=== PATIENT | male | born 1960 | race Hispanic/Latino ===

== ENCOUNTER → 2020-06-01 | Outpatient (CLI) | payer OTHER ==
[~2020-06-01] MED LIST: LIDOCAINE HCL 2% JELLY 5 ML ONE
== END | disposition home or self-care (01) ==
LOC: WHH 09:00
PROVIDERS: ATTEND Podiatrist Foot & Ankle Surgery
DX: E11.621 Type 2 diabetes mellitus with foot ulcer (principal); I70.245 Atherosclerosis of native arteries of left leg with ulceration of other part of foot; L97.522 Non-pressure chronic ulcer of other part of left foot with fat layer exposed; E11.22 Type 2 diabetes mellitus with diabetic chronic kidney disease; I12.9 Hypertensive chronic kidney disease with stage 1 through stage 4 chronic kidney disease, or unspecified chronic kidney disease; N18.31 Chronic kidney disease, stage 3a; E11.40 Type 2 diabetes mellitus with diabetic neuropathy, unspecified; M19.072 Primary osteoarthritis, left ankle and foot; I10 Essential (primary) hypertension; E78.00 Pure hypercholesterolemia, unspecified
CPT/HCPCS: 11042; A6207

== ENCOUNTER → 2020-06-03 | Outpatient (CLI) | payer OTHER | END | disposition home or self-care (01) | LOC: WHH 08:30 | PROVIDERS: ATTEND Podiatrist Foot & Ankle Surgery | DX: E11.621 Type 2 diabetes mellitus with foot ulcer (principal); I70.245 Atherosclerosis of native arteries of left leg with ulceration of other part of foot; L97.522 Non-pressure chronic ulcer of other part of left foot with fat layer exposed; E11.22 Type 2 diabetes mellitus with diabetic chronic kidney disease; I12.9 Hypertensive chronic kidney disease with stage 1 through stage 4 chronic kidney disease, or unspecified chronic kidney disease; N18.31 Chronic kidney disease, stage 3a; E11.40 Type 2 diabetes mellitus with diabetic neuropathy, unspecified; M19.072 Primary osteoarthritis, left ankle and foot; I10 Essential (primary) hypertension; E78.00 Pure hypercholesterolemia, unspecified | CPT/HCPCS: A6207; G0463 ==

== ENCOUNTER → 2020-06-06 | Outpatient (CLI) | payer OTHER | END | disposition home or self-care (01) | LOC: WHH 09:00 | PROVIDERS: ATTEND Podiatrist Foot & Ankle Surgery | DX: E11.621 Type 2 diabetes mellitus with foot ulcer (principal); I70.245 Atherosclerosis of native arteries of left leg with ulceration of other part of foot; L97.522 Non-pressure chronic ulcer of other part of left foot with fat layer exposed; E11.22 Type 2 diabetes mellitus with diabetic chronic kidney disease; I12.9 Hypertensive chronic kidney disease with stage 1 through stage 4 chronic kidney disease, or unspecified chronic kidney disease; N18.31 Chronic kidney disease, stage 3a; E11.40 Type 2 diabetes mellitus with diabetic neuropathy, unspecified; M19.072 Primary osteoarthritis, left ankle and foot; I10 Essential (primary) hypertension; E78.00 Pure hypercholesterolemia, unspecified | CPT/HCPCS: A6207; G0463 ==

== ENCOUNTER → 2020-06-08 | Outpatient (CLI) | payer OTHER | END | disposition home or self-care (01) | LOC: WHH 08:30 | PROVIDERS: ATTEND Podiatrist Foot & Ankle Surgery | DX: E11.621 Type 2 diabetes mellitus with foot ulcer (principal); I70.245 Atherosclerosis of native arteries of left leg with ulceration of other part of foot; L97.522 Non-pressure chronic ulcer of other part of left foot with fat layer exposed; E11.22 Type 2 diabetes mellitus with diabetic chronic kidney disease; I12.9 Hypertensive chronic kidney disease with stage 1 through stage 4 chronic kidney disease, or unspecified chronic kidney disease; N18.31 Chronic kidney disease, stage 3a; E11.40 Type 2 diabetes mellitus with diabetic neuropathy, unspecified; M19.072 Primary osteoarthritis, left ankle and foot; I10 Essential (primary) hypertension; E78.00 Pure hypercholesterolemia, unspecified | CPT/HCPCS: 11042; A4450; A6207 ==

== ENCOUNTER → 2020-06-10 | Outpatient (CLI) | payer OTHER | END | disposition home or self-care (01) | LOC: WHH 08:00 | PROVIDERS: ATTEND Podiatrist Foot & Ankle Surgery | DX: E11.621 Type 2 diabetes mellitus with foot ulcer (principal); I70.245 Atherosclerosis of native arteries of left leg with ulceration of other part of foot; L97.522 Non-pressure chronic ulcer of other part of left foot with fat layer exposed; E11.22 Type 2 diabetes mellitus with diabetic chronic kidney disease; I12.9 Hypertensive chronic kidney disease with stage 1 through stage 4 chronic kidney disease, or unspecified chronic kidney disease; N18.31 Chronic kidney disease, stage 3a; M19.072 Primary osteoarthritis, left ankle and foot; E78.00 Pure hypercholesterolemia, unspecified | CPT/HCPCS: A6207; G0463 ==

== ENCOUNTER → 2020-06-15 | Outpatient (CLI) | payer OTHER | END | disposition home or self-care (01) | LOC: WHH 08:50 | PROVIDERS: ATTEND Podiatrist Foot & Ankle Surgery | DX: E11.621 Type 2 diabetes mellitus with foot ulcer (principal); I70.245 Atherosclerosis of native arteries of left leg with ulceration of other part of foot; L97.522 Non-pressure chronic ulcer of other part of left foot with fat layer exposed; E11.40 Type 2 diabetes mellitus with diabetic neuropathy, unspecified; E11.22 Type 2 diabetes mellitus with diabetic chronic kidney disease; I12.9 Hypertensive chronic kidney disease with stage 1 through stage 4 chronic kidney disease, or unspecified chronic kidney disease; N18.31 Chronic kidney disease, stage 3a; M19.072 Primary osteoarthritis, left ankle and foot; E78.00 Pure hypercholesterolemia, unspecified | CPT/HCPCS: A6207; G0463 ==

== ENCOUNTER → 2020-06-17 | Outpatient (CLI) | payer OTHER | END | disposition home or self-care (01) | LOC: WHH 09:00 | PROVIDERS: ATTEND Podiatrist Foot & Ankle Surgery | DX: E11.621 Type 2 diabetes mellitus with foot ulcer (principal); I70.245 Atherosclerosis of native arteries of left leg with ulceration of other part of foot; L97.522 Non-pressure chronic ulcer of other part of left foot with fat layer exposed; E11.40 Type 2 diabetes mellitus with diabetic neuropathy, unspecified; E11.22 Type 2 diabetes mellitus with diabetic chronic kidney disease; I12.9 Hypertensive chronic kidney disease with stage 1 through stage 4 chronic kidney disease, or unspecified chronic kidney disease; N18.31 Chronic kidney disease, stage 3a; M19.072 Primary osteoarthritis, left ankle and foot; E78.00 Pure hypercholesterolemia, unspecified | CPT/HCPCS: A6207; G0463 ==

== ENCOUNTER → 2020-06-20 | Outpatient (CLI) | payer OTHER | END | disposition home or self-care (01) | LOC: WHH 08:30 | PROVIDERS: ATTEND Podiatrist Foot & Ankle Surgery | DX: E11.621 Type 2 diabetes mellitus with foot ulcer (principal); I70.245 Atherosclerosis of native arteries of left leg with ulceration of other part of foot; L97.522 Non-pressure chronic ulcer of other part of left foot with fat layer exposed; E11.40 Type 2 diabetes mellitus with diabetic neuropathy, unspecified; E11.22 Type 2 diabetes mellitus with diabetic chronic kidney disease; I12.9 Hypertensive chronic kidney disease with stage 1 through stage 4 chronic kidney disease, or unspecified chronic kidney disease; N18.31 Chronic kidney disease, stage 3a; M19.072 Primary osteoarthritis, left ankle and foot; E78.00 Pure hypercholesterolemia, unspecified | CPT/HCPCS: A6207; G0463 ==

== ENCOUNTER → 2020-06-22 | Outpatient (CLI) | payer OTHER | END | disposition home or self-care (01) | LOC: WHH 08:30 | PROVIDERS: ATTEND Podiatrist Foot & Ankle Surgery | DX: E11.621 Type 2 diabetes mellitus with foot ulcer (principal); I70.245 Atherosclerosis of native arteries of left leg with ulceration of other part of foot; L97.522 Non-pressure chronic ulcer of other part of left foot with fat layer exposed; E11.40 Type 2 diabetes mellitus with diabetic neuropathy, unspecified; E11.22 Type 2 diabetes mellitus with diabetic chronic kidney disease; I12.9 Hypertensive chronic kidney disease with stage 1 through stage 4 chronic kidney disease, or unspecified chronic kidney disease; N18.31 Chronic kidney disease, stage 3a; M19.072 Primary osteoarthritis, left ankle and foot; E78.00 Pure hypercholesterolemia, unspecified | CPT/HCPCS: 11042; A6207 ==

== ENCOUNTER → 2020-06-24 | Outpatient (CLI) | payer OTHER | END | disposition home or self-care (01) | LOC: WHH 08:55 | PROVIDERS: ATTEND Podiatrist Foot & Ankle Surgery | DX: E11.621 Type 2 diabetes mellitus with foot ulcer (principal); I70.245 Atherosclerosis of native arteries of left leg with ulceration of other part of foot; L97.522 Non-pressure chronic ulcer of other part of left foot with fat layer exposed; E11.40 Type 2 diabetes mellitus with diabetic neuropathy, unspecified; E11.22 Type 2 diabetes mellitus with diabetic chronic kidney disease; I12.9 Hypertensive chronic kidney disease with stage 1 through stage 4 chronic kidney disease, or unspecified chronic kidney disease; N18.31 Chronic kidney disease, stage 3a; M19.072 Primary osteoarthritis, left ankle and foot; E78.00 Pure hypercholesterolemia, unspecified | CPT/HCPCS: A6207; G0463 ==

== ENCOUNTER → 2020-06-27 | Outpatient (CLI) | payer OTHER | END | disposition home or self-care (01) | LOC: WHH 08:50 | PROVIDERS: ATTEND Podiatrist Foot & Ankle Surgery | DX: E11.621 Type 2 diabetes mellitus with foot ulcer (principal); I70.245 Atherosclerosis of native arteries of left leg with ulceration of other part of foot; L97.522 Non-pressure chronic ulcer of other part of left foot with fat layer exposed; E11.40 Type 2 diabetes mellitus with diabetic neuropathy, unspecified; E11.22 Type 2 diabetes mellitus with diabetic chronic kidney disease; I12.9 Hypertensive chronic kidney disease with stage 1 through stage 4 chronic kidney disease, or unspecified chronic kidney disease; N18.31 Chronic kidney disease, stage 3a; M19.072 Primary osteoarthritis, left ankle and foot; E78.00 Pure hypercholesterolemia, unspecified | CPT/HCPCS: A6207; G0463 ==

== ENCOUNTER → 2020-07-01 | Outpatient (CLI) | payer OTHER | END | disposition home or self-care (01) | LOC: WHH 09:00 | PROVIDERS: ATTEND Podiatrist Foot & Ankle Surgery | DX: E11.621 Type 2 diabetes mellitus with foot ulcer (principal); I70.245 Atherosclerosis of native arteries of left leg with ulceration of other part of foot; L97.522 Non-pressure chronic ulcer of other part of left foot with fat layer exposed; L84 Corns and callosities; E11.40 Type 2 diabetes mellitus with diabetic neuropathy, unspecified; E11.22 Type 2 diabetes mellitus with diabetic chronic kidney disease; I12.9 Hypertensive chronic kidney disease with stage 1 through stage 4 chronic kidney disease, or unspecified chronic kidney disease; N18.31 Chronic kidney disease, stage 3a; M19.072 Primary osteoarthritis, left ankle and foot; E78.00 Pure hypercholesterolemia, unspecified | CPT/HCPCS: A6207; G0463 ==

== ENCOUNTER → 2020-07-04 | Outpatient (CLI) | payer OTHER | END | disposition home or self-care (01) | LOC: WHH 09:00 | PROVIDERS: ATTEND Podiatrist Foot & Ankle Surgery | DX: E11.621 Type 2 diabetes mellitus with foot ulcer (principal); L97.522 Non-pressure chronic ulcer of other part of left foot with fat layer exposed; L84 Corns and callosities; E11.40 Type 2 diabetes mellitus with diabetic neuropathy, unspecified; E11.22 Type 2 diabetes mellitus with diabetic chronic kidney disease; I12.9 Hypertensive chronic kidney disease with stage 1 through stage 4 chronic kidney disease, or unspecified chronic kidney disease; N18.31 Chronic kidney disease, stage 3a; M19.072 Primary osteoarthritis, left ankle and foot; E78.00 Pure hypercholesterolemia, unspecified | CPT/HCPCS: A6207; G0463 ==

== ENCOUNTER → 2020-07-06 | Outpatient (CLI) | payer OTHER | END | disposition home or self-care (01) | LOC: WHH 09:30 | PROVIDERS: ATTEND Podiatrist Foot & Ankle Surgery | DX: E11.621 Type 2 diabetes mellitus with foot ulcer (principal); L97.522 Non-pressure chronic ulcer of other part of left foot with fat layer exposed; L84 Corns and callosities; E11.40 Type 2 diabetes mellitus with diabetic neuropathy, unspecified; E11.22 Type 2 diabetes mellitus with diabetic chronic kidney disease; I12.9 Hypertensive chronic kidney disease with stage 1 through stage 4 chronic kidney disease, or unspecified chronic kidney disease; N18.31 Chronic kidney disease, stage 3a; M19.072 Primary osteoarthritis, left ankle and foot; E78.00 Pure hypercholesterolemia, unspecified | CPT/HCPCS: 15275; A4450; A6197; A6207; Q4133 ==

== ENCOUNTER → 2020-07-13 | Outpatient (CLI) | payer OTHER | END | disposition home or self-care (01) | LOC: WHH 09:00 | PROVIDERS: ATTEND Podiatrist Foot & Ankle Surgery | DX: T86.828 Other complications of skin graft (allograft) (autograft) (principal); E11.621 Type 2 diabetes mellitus with foot ulcer; L97.522 Non-pressure chronic ulcer of other part of left foot with fat layer exposed; I70.245 Atherosclerosis of native arteries of left leg with ulceration of other part of foot; L84 Corns and callosities; E11.40 Type 2 diabetes mellitus with diabetic neuropathy, unspecified; E11.22 Type 2 diabetes mellitus with diabetic chronic kidney disease; I12.9 Hypertensive chronic kidney disease with stage 1 through stage 4 chronic kidney disease, or unspecified chronic kidney disease; N18.31 Chronic kidney disease, stage 3a; M19.072 Primary osteoarthritis, left ankle and foot; E78.00 Pure hypercholesterolemia, unspecified; Y83.2 Surgical operation with anastomosis, bypass or graft as the cause of abnormal reaction of the patient, or of later complication, without mention of misadventure at the time of the procedure; Y92.238 Other place in hospital as the place of occurrence of the external cause | CPT/HCPCS: 15275; A6197; A6207; Q4133 ==

== ENCOUNTER → 2020-07-20 | Outpatient (CLI) | payer OTHER | END | disposition home or self-care (01) | LOC: WHH 09:30 | PROVIDERS: ATTEND Podiatrist Foot & Ankle Surgery | DX: T86.828 Other complications of skin graft (allograft) (autograft) (principal); E11.621 Type 2 diabetes mellitus with foot ulcer; L97.522 Non-pressure chronic ulcer of other part of left foot with fat layer exposed; I70.245 Atherosclerosis of native arteries of left leg with ulceration of other part of foot; L84 Corns and callosities; E11.40 Type 2 diabetes mellitus with diabetic neuropathy, unspecified; E11.22 Type 2 diabetes mellitus with diabetic chronic kidney disease; I12.9 Hypertensive chronic kidney disease with stage 1 through stage 4 chronic kidney disease, or unspecified chronic kidney disease; N18.31 Chronic kidney disease, stage 3a; M19.072 Primary osteoarthritis, left ankle and foot; E78.00 Pure hypercholesterolemia, unspecified; Y83.2 Surgical operation with anastomosis, bypass or graft as the cause of abnormal reaction of the patient, or of later complication, without mention of misadventure at the time of the procedure | CPT/HCPCS: 15275; A4450; A6197; A6207; Q4133 ==

== ENCOUNTER → 2020-07-27 | Outpatient (CLI) | payer OTHER | END | disposition home or self-care (01) | LOC: WHH 09:00 | PROVIDERS: ATTEND Podiatrist Foot & Ankle Surgery | DX: T86.828 Other complications of skin graft (allograft) (autograft) (principal); E11.621 Type 2 diabetes mellitus with foot ulcer; I70.245 Atherosclerosis of native arteries of left leg with ulceration of other part of foot; L97.522 Non-pressure chronic ulcer of other part of left foot with fat layer exposed; L84 Corns and callosities; E11.40 Type 2 diabetes mellitus with diabetic neuropathy, unspecified; E11.22 Type 2 diabetes mellitus with diabetic chronic kidney disease; I12.9 Hypertensive chronic kidney disease with stage 1 through stage 4 chronic kidney disease, or unspecified chronic kidney disease; N18.31 Chronic kidney disease, stage 3a; M19.072 Primary osteoarthritis, left ankle and foot; E78.00 Pure hypercholesterolemia, unspecified; Y83.2 Surgical operation with anastomosis, bypass or graft as the cause of abnormal reaction of the patient, or of later complication, without mention of misadventure at the time of the procedure | CPT/HCPCS: 15275; A4450; A6197; A6207; Q4133 ==

== ENCOUNTER → 2020-08-03 | Outpatient (CLI) | payer OTHER | END | disposition home or self-care (01) | LOC: WHH 08:55 | PROVIDERS: ATTEND Podiatrist Foot & Ankle Surgery | DX: T86.828 Other complications of skin graft (allograft) (autograft) (principal); E11.621 Type 2 diabetes mellitus with foot ulcer; I70.245 Atherosclerosis of native arteries of left leg with ulceration of other part of foot; L97.522 Non-pressure chronic ulcer of other part of left foot with fat layer exposed; L60.2 Onychogryphosis; L84 Corns and callosities; E11.40 Type 2 diabetes mellitus with diabetic neuropathy, unspecified; E11.22 Type 2 diabetes mellitus with diabetic chronic kidney disease; I12.9 Hypertensive chronic kidney disease with stage 1 through stage 4 chronic kidney disease, or unspecified chronic kidney disease; N18.31 Chronic kidney disease, stage 3a; E78.00 Pure hypercholesterolemia, unspecified; M19.072 Primary osteoarthritis, left ankle and foot; Y83.2 Surgical operation with anastomosis, bypass or graft as the cause of abnormal reaction of the patient, or of later complication, without mention of misadventure at the time of the procedure | CPT/HCPCS: 11055; 15275; A6197; A6207 ×2; Q4133 ==

== ENCOUNTER → 2020-08-10 | Outpatient (CLI) | payer OTHER | END | disposition home or self-care (01) | LOC: WHH 09:00 | PROVIDERS: ATTEND Podiatrist Foot & Ankle Surgery | DX: T86.828 Other complications of skin graft (allograft) (autograft) (principal); E11.621 Type 2 diabetes mellitus with foot ulcer; I70.245 Atherosclerosis of native arteries of left leg with ulceration of other part of foot; L97.522 Non-pressure chronic ulcer of other part of left foot with fat layer exposed; L60.2 Onychogryphosis; L84 Corns and callosities; E11.40 Type 2 diabetes mellitus with diabetic neuropathy, unspecified; E11.22 Type 2 diabetes mellitus with diabetic chronic kidney disease; I12.9 Hypertensive chronic kidney disease with stage 1 through stage 4 chronic kidney disease, or unspecified chronic kidney disease; N18.31 Chronic kidney disease, stage 3a; E78.00 Pure hypercholesterolemia, unspecified; M19.072 Primary osteoarthritis, left ankle and foot; Y83.2 Surgical operation with anastomosis, bypass or graft as the cause of abnormal reaction of the patient, or of later complication, without mention of misadventure at the time of the procedure | CPT/HCPCS: 15275; A6197; A6207; Q4133 ==

== ENCOUNTER → 2020-08-17 | Outpatient (CLI) | payer OTHER | END | disposition home or self-care (01) | LOC: WHH 09:30 | PROVIDERS: ATTEND Podiatrist Foot & Ankle Surgery | DX: T86.828 Other complications of skin graft (allograft) (autograft) (principal); E11.621 Type 2 diabetes mellitus with foot ulcer; I70.245 Atherosclerosis of native arteries of left leg with ulceration of other part of foot; L97.522 Non-pressure chronic ulcer of other part of left foot with fat layer exposed; L60.2 Onychogryphosis; L84 Corns and callosities; E11.40 Type 2 diabetes mellitus with diabetic neuropathy, unspecified; E11.22 Type 2 diabetes mellitus with diabetic chronic kidney disease; I12.9 Hypertensive chronic kidney disease with stage 1 through stage 4 chronic kidney disease, or unspecified chronic kidney disease; N18.31 Chronic kidney disease, stage 3a; E78.00 Pure hypercholesterolemia, unspecified; M19.072 Primary osteoarthritis, left ankle and foot; Y83.2 Surgical operation with anastomosis, bypass or graft as the cause of abnormal reaction of the patient, or of later complication, without mention of misadventure at the time of the procedure | CPT/HCPCS: 15275; A6209; Q4133 ==

== ENCOUNTER → 2020-08-24 | Outpatient (CLI) | payer OTHER | END | disposition home or self-care (01) | LOC: WHH 09:08 | PROVIDERS: ATTEND Podiatrist Foot & Ankle Surgery | DX: E11.621 Type 2 diabetes mellitus with foot ulcer (principal); I70.245 Atherosclerosis of native arteries of left leg with ulceration of other part of foot; L97.522 Non-pressure chronic ulcer of other part of left foot with fat layer exposed; L89.899 Pressure ulcer of other site, unspecified stage; L97.511 Non-pressure chronic ulcer of other part of right foot limited to breakdown of skin; L60.2 Onychogryphosis; L84 Corns and callosities; E11.40 Type 2 diabetes mellitus with diabetic neuropathy, unspecified; E11.22 Type 2 diabetes mellitus with diabetic chronic kidney disease; I12.9 Hypertensive chronic kidney disease with stage 1 through stage 4 chronic kidney disease, or unspecified chronic kidney disease; N18.31 Chronic kidney disease, stage 3a; E78.00 Pure hypercholesterolemia, unspecified; M19.072 Primary osteoarthritis, left ankle and foot | CPT/HCPCS: 15275; A4450; A6209; Q4133 ==

== ENCOUNTER → 2020-09-07 | Outpatient (CLI) | payer OTHER ==
[~2020-09-07] MED LIST changes: -LIDOCAINE HCL 2% JELLY 5 ML ONE; +LIDOCAINE HCL 4% LTA SOL 4 ML VIAL ONE
== END | disposition home or self-care (01) ==
LOC: WHH 09:25
PROVIDERS: ATTEND Podiatrist Foot & Ankle Surgery
DX: E11.621 Type 2 diabetes mellitus with foot ulcer (principal); I70.245 Atherosclerosis of native arteries of left leg with ulceration of other part of foot; L97.522 Non-pressure chronic ulcer of other part of left foot with fat layer exposed; L60.2 Onychogryphosis; L84 Corns and callosities; E11.40 Type 2 diabetes mellitus with diabetic neuropathy, unspecified; E11.22 Type 2 diabetes mellitus with diabetic chronic kidney disease; I12.9 Hypertensive chronic kidney disease with stage 1 through stage 4 chronic kidney disease, or unspecified chronic kidney disease; N18.31 Chronic kidney disease, stage 3a; E78.00 Pure hypercholesterolemia, unspecified; M19.072 Primary osteoarthritis, left ankle and foot
CPT/HCPCS: 11042; 15275; A6209; Q4133

== ENCOUNTER → 2020-09-14 | Outpatient (CLI) | payer OTHER | END | disposition home or self-care (01) | LOC: WHH 09:45 | PROVIDERS: ATTEND Podiatrist Foot & Ankle Surgery | DX: T86.828 Other complications of skin graft (allograft) (autograft) (principal); E11.621 Type 2 diabetes mellitus with foot ulcer; I70.245 Atherosclerosis of native arteries of left leg with ulceration of other part of foot; L97.522 Non-pressure chronic ulcer of other part of left foot with fat layer exposed; L84 Corns and callosities; E11.40 Type 2 diabetes mellitus with diabetic neuropathy, unspecified; E11.22 Type 2 diabetes mellitus with diabetic chronic kidney disease; I12.9 Hypertensive chronic kidney disease with stage 1 through stage 4 chronic kidney disease, or unspecified chronic kidney disease; N18.31 Chronic kidney disease, stage 3a; E78.00 Pure hypercholesterolemia, unspecified; M19.072 Primary osteoarthritis, left ankle and foot; Y83.2 Surgical operation with anastomosis, bypass or graft as the cause of abnormal reaction of the patient, or of later complication, without mention of misadventure at the time of the procedure | CPT/HCPCS: 11042; A6022 ==

== ENCOUNTER → 2020-09-21 | Outpatient (CLI) | payer OTHER | END | disposition home or self-care (01) | LOC: WHH 09:12 | PROVIDERS: ATTEND Podiatrist Foot & Ankle Surgery | DX: E11.621 Type 2 diabetes mellitus with foot ulcer (principal); I70.245 Atherosclerosis of native arteries of left leg with ulceration of other part of foot; L97.522 Non-pressure chronic ulcer of other part of left foot with fat layer exposed; L84 Corns and callosities; B35.1 Tinea unguium; E11.40 Type 2 diabetes mellitus with diabetic neuropathy, unspecified; E11.22 Type 2 diabetes mellitus with diabetic chronic kidney disease; I12.9 Hypertensive chronic kidney disease with stage 1 through stage 4 chronic kidney disease, or unspecified chronic kidney disease; N18.31 Chronic kidney disease, stage 3a; E78.00 Pure hypercholesterolemia, unspecified; M19.072 Primary osteoarthritis, left ankle and foot; Y83.2 Surgical operation with anastomosis, bypass or graft as the cause of abnormal reaction of the patient, or of later complication, without mention of misadventure at the time of the procedure | CPT/HCPCS: 11056; A6022 ==

== ENCOUNTER → 2020-09-28 | Outpatient (CLI) | payer OTHER | END | disposition home or self-care (01) | LOC: WHH 09:30 | PROVIDERS: ATTEND Podiatrist Foot & Ankle Surgery | DX: E11.621 Type 2 diabetes mellitus with foot ulcer (principal); I70.245 Atherosclerosis of native arteries of left leg with ulceration of other part of foot; L97.522 Non-pressure chronic ulcer of other part of left foot with fat layer exposed; I70.235 Atherosclerosis of native arteries of right leg with ulceration of other part of foot; L97.512 Non-pressure chronic ulcer of other part of right foot with fat layer exposed; L89.892 Pressure ulcer of other site, stage 2; L84 Corns and callosities; B35.1 Tinea unguium; E11.40 Type 2 diabetes mellitus with diabetic neuropathy, unspecified; E11.22 Type 2 diabetes mellitus with diabetic chronic kidney disease; I12.9 Hypertensive chronic kidney disease with stage 1 through stage 4 chronic kidney disease, or unspecified chronic kidney disease; N18.31 Chronic kidney disease, stage 3a; E78.00 Pure hypercholesterolemia, unspecified; M19.072 Primary osteoarthritis, left ankle and foot; Y83.2 Surgical operation with anastomosis, bypass or graft as the cause of abnormal reaction of the patient, or of later complication, without mention of misadventure at the time of the procedure | CPT/HCPCS: 11042; A4649 ==

== ENCOUNTER → 2020-10-05 | Outpatient (CLI) | payer OTHER | END | disposition home or self-care (01) | LOC: WHH 09:57 | PROVIDERS: ATTEND Podiatrist Foot & Ankle Surgery | DX: T86.828 Other complications of skin graft (allograft) (autograft) (principal); E11.621 Type 2 diabetes mellitus with foot ulcer; I70.245 Atherosclerosis of native arteries of left leg with ulceration of other part of foot; L97.522 Non-pressure chronic ulcer of other part of left foot with fat layer exposed; I70.235 Atherosclerosis of native arteries of right leg with ulceration of other part of foot; L97.512 Non-pressure chronic ulcer of other part of right foot with fat layer exposed; L89.892 Pressure ulcer of other site, stage 2; L84 Corns and callosities; B35.1 Tinea unguium; E11.40 Type 2 diabetes mellitus with diabetic neuropathy, unspecified; E11.22 Type 2 diabetes mellitus with diabetic chronic kidney disease; I12.9 Hypertensive chronic kidney disease with stage 1 through stage 4 chronic kidney disease, or unspecified chronic kidney disease; N18.31 Chronic kidney disease, stage 3a; E78.00 Pure hypercholesterolemia, unspecified; M19.072 Primary osteoarthritis, left ankle and foot; Y83.2 Surgical operation with anastomosis, bypass or graft as the cause of abnormal reaction of the patient, or of later complication, without mention of misadventure at the time of the procedure | CPT/HCPCS: 11042; A4649 ==

== ENCOUNTER → 2020-10-12 | Outpatient (CLI) | payer OTHER | END | disposition home or self-care (01) | LOC: WHH 09:31 | PROVIDERS: ATTEND Podiatrist Foot & Ankle Surgery | DX: E11.621 Type 2 diabetes mellitus with foot ulcer (principal); I70.245 Atherosclerosis of native arteries of left leg with ulceration of other part of foot; L97.522 Non-pressure chronic ulcer of other part of left foot with fat layer exposed; I70.235 Atherosclerosis of native arteries of right leg with ulceration of other part of foot; L97.512 Non-pressure chronic ulcer of other part of right foot with fat layer exposed; L89.892 Pressure ulcer of other site, stage 2; L84 Corns and callosities; B35.1 Tinea unguium; E11.40 Type 2 diabetes mellitus with diabetic neuropathy, unspecified; E11.22 Type 2 diabetes mellitus with diabetic chronic kidney disease; I12.9 Hypertensive chronic kidney disease with stage 1 through stage 4 chronic kidney disease, or unspecified chronic kidney disease; N18.31 Chronic kidney disease, stage 3a; E78.00 Pure hypercholesterolemia, unspecified; M19.072 Primary osteoarthritis, left ankle and foot; Y83.2 Surgical operation with anastomosis, bypass or graft as the cause of abnormal reaction of the patient, or of later complication, without mention of misadventure at the time of the procedure | CPT/HCPCS: 11042; A4649 ==

== ENCOUNTER → 2020-10-19 | Outpatient (CLI) | payer OTHER | END | disposition home or self-care (01) | LOC: WHH 09:58 | PROVIDERS: ATTEND Podiatrist Foot & Ankle Surgery | DX: E11.621 Type 2 diabetes mellitus with foot ulcer (principal); I70.245 Atherosclerosis of native arteries of left leg with ulceration of other part of foot; L97.522 Non-pressure chronic ulcer of other part of left foot with fat layer exposed; I70.235 Atherosclerosis of native arteries of right leg with ulceration of other part of foot; L97.512 Non-pressure chronic ulcer of other part of right foot with fat layer exposed; L89.892 Pressure ulcer of other site, stage 2; L84 Corns and callosities; B35.1 Tinea unguium; E11.40 Type 2 diabetes mellitus with diabetic neuropathy, unspecified; E11.22 Type 2 diabetes mellitus with diabetic chronic kidney disease; I12.9 Hypertensive chronic kidney disease with stage 1 through stage 4 chronic kidney disease, or unspecified chronic kidney disease; N18.31 Chronic kidney disease, stage 3a; E78.00 Pure hypercholesterolemia, unspecified; M19.072 Primary osteoarthritis, left ankle and foot; Y83.2 Surgical operation with anastomosis, bypass or graft as the cause of abnormal reaction of the patient, or of later complication, without mention of misadventure at the time of the procedure | CPT/HCPCS: 11042; A4649 ==

== ENCOUNTER → 2020-10-26 | Outpatient (CLI) | payer OTHER | END | disposition home or self-care (01) | LOC: WHH 09:45 | PROVIDERS: ATTEND Podiatrist Foot & Ankle Surgery | DX: E11.621 Type 2 diabetes mellitus with foot ulcer (principal); I70.245 Atherosclerosis of native arteries of left leg with ulceration of other part of foot; L97.522 Non-pressure chronic ulcer of other part of left foot with fat layer exposed; I70.235 Atherosclerosis of native arteries of right leg with ulceration of other part of foot; L97.512 Non-pressure chronic ulcer of other part of right foot with fat layer exposed; L89.892 Pressure ulcer of other site, stage 2; L84 Corns and callosities; B35.1 Tinea unguium; E11.40 Type 2 diabetes mellitus with diabetic neuropathy, unspecified; E11.22 Type 2 diabetes mellitus with diabetic chronic kidney disease; I12.9 Hypertensive chronic kidney disease with stage 1 through stage 4 chronic kidney disease, or unspecified chronic kidney disease; N18.31 Chronic kidney disease, stage 3a; E78.00 Pure hypercholesterolemia, unspecified; M19.072 Primary osteoarthritis, left ankle and foot | CPT/HCPCS: 11042; A4450; A6207 ==

== ENCOUNTER → 2020-11-02 | Outpatient (CLI) | payer OTHER | END | disposition home or self-care (01) | LOC: WHH 10:08 | PROVIDERS: ATTEND Podiatrist Foot & Ankle Surgery | DX: E11.621 Type 2 diabetes mellitus with foot ulcer (principal); I70.245 Atherosclerosis of native arteries of left leg with ulceration of other part of foot; L97.522 Non-pressure chronic ulcer of other part of left foot with fat layer exposed; I70.235 Atherosclerosis of native arteries of right leg with ulceration of other part of foot; L97.512 Non-pressure chronic ulcer of other part of right foot with fat layer exposed; L89.892 Pressure ulcer of other site, stage 2; L84 Corns and callosities; B35.1 Tinea unguium; E11.40 Type 2 diabetes mellitus with diabetic neuropathy, unspecified; E11.22 Type 2 diabetes mellitus with diabetic chronic kidney disease; I12.9 Hypertensive chronic kidney disease with stage 1 through stage 4 chronic kidney disease, or unspecified chronic kidney disease; N18.31 Chronic kidney disease, stage 3a; E78.00 Pure hypercholesterolemia, unspecified; M19.072 Primary osteoarthritis, left ankle and foot | CPT/HCPCS: 11042; A6209 ==

== ENCOUNTER → 2020-11-04 | Outpatient (CLI) | payer OTHER | END | disposition home or self-care (01) | LOC: WHH 08:25 | PROVIDERS: ATTEND Podiatrist Foot & Ankle Surgery | DX: E11.621 Type 2 diabetes mellitus with foot ulcer (principal); I70.245 Atherosclerosis of native arteries of left leg with ulceration of other part of foot; L97.522 Non-pressure chronic ulcer of other part of left foot with fat layer exposed; I70.235 Atherosclerosis of native arteries of right leg with ulceration of other part of foot; L97.512 Non-pressure chronic ulcer of other part of right foot with fat layer exposed; L89.892 Pressure ulcer of other site, stage 2; L84 Corns and callosities; B35.1 Tinea unguium; E11.40 Type 2 diabetes mellitus with diabetic neuropathy, unspecified; E11.22 Type 2 diabetes mellitus with diabetic chronic kidney disease; I12.9 Hypertensive chronic kidney disease with stage 1 through stage 4 chronic kidney disease, or unspecified chronic kidney disease; N18.31 Chronic kidney disease, stage 3a; E78.00 Pure hypercholesterolemia, unspecified; M19.072 Primary osteoarthritis, left ankle and foot | CPT/HCPCS: A6209; G0463 ==

== ENCOUNTER → 2020-11-09 | Outpatient (CLI) | payer OTHER | END | disposition home or self-care (01) | LOC: WHH 09:41 | PROVIDERS: ATTEND Podiatrist Foot & Ankle Surgery | DX: E11.621 Type 2 diabetes mellitus with foot ulcer (principal); I70.245 Atherosclerosis of native arteries of left leg with ulceration of other part of foot; L97.522 Non-pressure chronic ulcer of other part of left foot with fat layer exposed; I70.235 Atherosclerosis of native arteries of right leg with ulceration of other part of foot; L97.512 Non-pressure chronic ulcer of other part of right foot with fat layer exposed; L89.892 Pressure ulcer of other site, stage 2; L84 Corns and callosities; B35.1 Tinea unguium; E11.40 Type 2 diabetes mellitus with diabetic neuropathy, unspecified; E11.22 Type 2 diabetes mellitus with diabetic chronic kidney disease; I12.9 Hypertensive chronic kidney disease with stage 1 through stage 4 chronic kidney disease, or unspecified chronic kidney disease; N18.31 Chronic kidney disease, stage 3a; E78.00 Pure hypercholesterolemia, unspecified; M19.072 Primary osteoarthritis, left ankle and foot | CPT/HCPCS: 11042; A4450; A6209 ==

== ENCOUNTER → 2020-11-14 | Outpatient (CLI) | payer OTHER | END | disposition home or self-care (01) | LOC: WHH 09:42 | PROVIDERS: ATTEND Podiatrist Foot & Ankle Surgery | DX: E11.621 Type 2 diabetes mellitus with foot ulcer (principal); I70.245 Atherosclerosis of native arteries of left leg with ulceration of other part of foot; L97.522 Non-pressure chronic ulcer of other part of left foot with fat layer exposed; I70.235 Atherosclerosis of native arteries of right leg with ulceration of other part of foot; L97.512 Non-pressure chronic ulcer of other part of right foot with fat layer exposed; L89.892 Pressure ulcer of other site, stage 2; L84 Corns and callosities; B35.1 Tinea unguium; E11.40 Type 2 diabetes mellitus with diabetic neuropathy, unspecified; E11.22 Type 2 diabetes mellitus with diabetic chronic kidney disease; I12.9 Hypertensive chronic kidney disease with stage 1 through stage 4 chronic kidney disease, or unspecified chronic kidney disease; N18.31 Chronic kidney disease, stage 3a; E78.00 Pure hypercholesterolemia, unspecified; M19.072 Primary osteoarthritis, left ankle and foot | CPT/HCPCS: A6209; G0463 ==

== ENCOUNTER → 2020-11-16 | Outpatient (CLI) | payer OTHER | END | disposition home or self-care (01) | LOC: WHH 09:37 | PROVIDERS: ATTEND Podiatrist Foot & Ankle Surgery | DX: E11.621 Type 2 diabetes mellitus with foot ulcer (principal); I70.245 Atherosclerosis of native arteries of left leg with ulceration of other part of foot; L97.522 Non-pressure chronic ulcer of other part of left foot with fat layer exposed; I70.235 Atherosclerosis of native arteries of right leg with ulceration of other part of foot; L97.512 Non-pressure chronic ulcer of other part of right foot with fat layer exposed; L89.892 Pressure ulcer of other site, stage 2; L84 Corns and callosities; B35.1 Tinea unguium; E11.40 Type 2 diabetes mellitus with diabetic neuropathy, unspecified; E11.22 Type 2 diabetes mellitus with diabetic chronic kidney disease; I12.9 Hypertensive chronic kidney disease with stage 1 through stage 4 chronic kidney disease, or unspecified chronic kidney disease; N18.31 Chronic kidney disease, stage 3a; E78.00 Pure hypercholesterolemia, unspecified; M19.072 Primary osteoarthritis, left ankle and foot | CPT/HCPCS: A6209; G0463 ==

== ENCOUNTER → 2020-11-18 | Outpatient (CLI) | payer OTHER | END | disposition home or self-care (01) | LOC: WHH 08:19 | PROVIDERS: ATTEND Podiatrist Foot & Ankle Surgery | DX: E11.621 Type 2 diabetes mellitus with foot ulcer (principal); I70.245 Atherosclerosis of native arteries of left leg with ulceration of other part of foot; L97.522 Non-pressure chronic ulcer of other part of left foot with fat layer exposed; I70.235 Atherosclerosis of native arteries of right leg with ulceration of other part of foot; L97.512 Non-pressure chronic ulcer of other part of right foot with fat layer exposed; L89.892 Pressure ulcer of other site, stage 2; L84 Corns and callosities; B35.1 Tinea unguium; E11.40 Type 2 diabetes mellitus with diabetic neuropathy, unspecified; E11.22 Type 2 diabetes mellitus with diabetic chronic kidney disease; I12.9 Hypertensive chronic kidney disease with stage 1 through stage 4 chronic kidney disease, or unspecified chronic kidney disease; N18.31 Chronic kidney disease, stage 3a; E78.00 Pure hypercholesterolemia, unspecified; M19.072 Primary osteoarthritis, left ankle and foot | CPT/HCPCS: A6209; G0463 ==

== ENCOUNTER → 2020-11-21 | Outpatient (CLI) | payer OTHER | END | disposition home or self-care (01) | LOC: WHH 08:42 | PROVIDERS: ATTEND Podiatrist Foot & Ankle Surgery | DX: E11.621 Type 2 diabetes mellitus with foot ulcer (principal); I70.245 Atherosclerosis of native arteries of left leg with ulceration of other part of foot; L97.522 Non-pressure chronic ulcer of other part of left foot with fat layer exposed; I70.235 Atherosclerosis of native arteries of right leg with ulceration of other part of foot; L97.512 Non-pressure chronic ulcer of other part of right foot with fat layer exposed; L89.892 Pressure ulcer of other site, stage 2; L84 Corns and callosities; B35.1 Tinea unguium; E11.40 Type 2 diabetes mellitus with diabetic neuropathy, unspecified; E11.22 Type 2 diabetes mellitus with diabetic chronic kidney disease; I12.9 Hypertensive chronic kidney disease with stage 1 through stage 4 chronic kidney disease, or unspecified chronic kidney disease; N18.31 Chronic kidney disease, stage 3a; E78.00 Pure hypercholesterolemia, unspecified; M19.072 Primary osteoarthritis, left ankle and foot | CPT/HCPCS: A6209; G0463 ==

== ENCOUNTER → 2020-11-25 | Outpatient (CLI) | payer OTHER | END | disposition home or self-care (01) | LOC: WHH 08:23 | PROVIDERS: ATTEND Podiatrist Foot & Ankle Surgery | DX: E11.621 Type 2 diabetes mellitus with foot ulcer (principal); I70.245 Atherosclerosis of native arteries of left leg with ulceration of other part of foot; L97.522 Non-pressure chronic ulcer of other part of left foot with fat layer exposed; I70.235 Atherosclerosis of native arteries of right leg with ulceration of other part of foot; L97.512 Non-pressure chronic ulcer of other part of right foot with fat layer exposed; L89.892 Pressure ulcer of other site, stage 2; L84 Corns and callosities; B35.1 Tinea unguium; E11.40 Type 2 diabetes mellitus with diabetic neuropathy, unspecified; E11.22 Type 2 diabetes mellitus with diabetic chronic kidney disease; I12.9 Hypertensive chronic kidney disease with stage 1 through stage 4 chronic kidney disease, or unspecified chronic kidney disease; N18.31 Chronic kidney disease, stage 3a; E78.00 Pure hypercholesterolemia, unspecified; M19.072 Primary osteoarthritis, left ankle and foot | CPT/HCPCS: A4450; A6209; G0463 ==

== ENCOUNTER → 2020-11-28 | Outpatient (CLI) | payer OTHER | END | disposition home or self-care (01) | LOC: WHH 09:02 | PROVIDERS: ATTEND Podiatrist Foot & Ankle Surgery | DX: E11.621 Type 2 diabetes mellitus with foot ulcer (principal); I70.245 Atherosclerosis of native arteries of left leg with ulceration of other part of foot; L97.522 Non-pressure chronic ulcer of other part of left foot with fat layer exposed; I70.235 Atherosclerosis of native arteries of right leg with ulceration of other part of foot; L97.512 Non-pressure chronic ulcer of other part of right foot with fat layer exposed; L89.892 Pressure ulcer of other site, stage 2; L84 Corns and callosities; B35.1 Tinea unguium; E11.40 Type 2 diabetes mellitus with diabetic neuropathy, unspecified; E11.22 Type 2 diabetes mellitus with diabetic chronic kidney disease; I12.9 Hypertensive chronic kidney disease with stage 1 through stage 4 chronic kidney disease, or unspecified chronic kidney disease; N18.31 Chronic kidney disease, stage 3a; E78.00 Pure hypercholesterolemia, unspecified; M19.072 Primary osteoarthritis, left ankle and foot | CPT/HCPCS: A6209; G0463 ==

== ENCOUNTER → 2020-12-05 | Outpatient (CLI) | payer OTHER | END | disposition home or self-care (01) | LOC: WHH 09:19 | PROVIDERS: ATTEND Podiatrist Foot & Ankle Surgery | DX: E11.621 Type 2 diabetes mellitus with foot ulcer (principal); I70.245 Atherosclerosis of native arteries of left leg with ulceration of other part of foot; L97.522 Non-pressure chronic ulcer of other part of left foot with fat layer exposed; I70.235 Atherosclerosis of native arteries of right leg with ulceration of other part of foot; L97.512 Non-pressure chronic ulcer of other part of right foot with fat layer exposed; L89.892 Pressure ulcer of other site, stage 2; L84 Corns and callosities; B35.1 Tinea unguium; E11.40 Type 2 diabetes mellitus with diabetic neuropathy, unspecified; E11.22 Type 2 diabetes mellitus with diabetic chronic kidney disease; I12.9 Hypertensive chronic kidney disease with stage 1 through stage 4 chronic kidney disease, or unspecified chronic kidney disease; N18.31 Chronic kidney disease, stage 3a; E78.00 Pure hypercholesterolemia, unspecified; M19.072 Primary osteoarthritis, left ankle and foot | CPT/HCPCS: A6209; G0463 ==

== ENCOUNTER → 2020-12-07 | Outpatient (CLI) | payer OTHER | END | disposition home or self-care (01) | LOC: WHH 09:25 | PROVIDERS: ATTEND Podiatrist Foot & Ankle Surgery | DX: E11.621 Type 2 diabetes mellitus with foot ulcer (principal); I70.245 Atherosclerosis of native arteries of left leg with ulceration of other part of foot; L97.522 Non-pressure chronic ulcer of other part of left foot with fat layer exposed; I70.235 Atherosclerosis of native arteries of right leg with ulceration of other part of foot; L97.512 Non-pressure chronic ulcer of other part of right foot with fat layer exposed; L89.892 Pressure ulcer of other site, stage 2; L84 Corns and callosities; B35.1 Tinea unguium; E11.40 Type 2 diabetes mellitus with diabetic neuropathy, unspecified; E11.22 Type 2 diabetes mellitus with diabetic chronic kidney disease; I12.9 Hypertensive chronic kidney disease with stage 1 through stage 4 chronic kidney disease, or unspecified chronic kidney disease; N18.31 Chronic kidney disease, stage 3a; E78.00 Pure hypercholesterolemia, unspecified; M19.072 Primary osteoarthritis, left ankle and foot | CPT/HCPCS: 97597; A4450 ==

== ENCOUNTER → 2021-03-15 | Outpatient (CLI) | payer OTHER | END | disposition home or self-care (01) | LOC: WHH 10:05 | PROVIDERS: ATTEND Podiatrist Foot & Ankle Surgery | DX: E11.621 Type 2 diabetes mellitus with foot ulcer (principal); I70.245 Atherosclerosis of native arteries of left leg with ulceration of other part of foot; L97.522 Non-pressure chronic ulcer of other part of left foot with fat layer exposed; L84 Corns and callosities; I70.235 Atherosclerosis of native arteries of right leg with ulceration of other part of foot; L89.892 Pressure ulcer of other site, stage 2; L97.511 Non-pressure chronic ulcer of other part of right foot limited to breakdown of skin; B35.1 Tinea unguium; L60.2 Onychogryphosis; E11.40 Type 2 diabetes mellitus with diabetic neuropathy, unspecified; E11.22 Type 2 diabetes mellitus with diabetic chronic kidney disease; I12.9 Hypertensive chronic kidney disease with stage 1 through stage 4 chronic kidney disease, or unspecified chronic kidney disease; N18.31 Chronic kidney disease, stage 3a; Z87.891 Personal history of nicotine dependence; Z79.899 Other long term (current) drug therapy | CPT/HCPCS: 97597 ==

== ENCOUNTER → 2021-04-12 | Outpatient (CLI) | payer OTHER | END | disposition home or self-care (01) | LOC: WHH 10:02 | PROVIDERS: ATTEND Podiatrist Foot & Ankle Surgery | DX: E11.621 Type 2 diabetes mellitus with foot ulcer (principal); I70.245 Atherosclerosis of native arteries of left leg with ulceration of other part of foot; L97.522 Non-pressure chronic ulcer of other part of left foot with fat layer exposed; L84 Corns and callosities; E11.40 Type 2 diabetes mellitus with diabetic neuropathy, unspecified; E11.22 Type 2 diabetes mellitus with diabetic chronic kidney disease; I12.9 Hypertensive chronic kidney disease with stage 1 through stage 4 chronic kidney disease, or unspecified chronic kidney disease; N18.31 Chronic kidney disease, stage 3a; M19.079 Primary osteoarthritis, unspecified ankle and foot; Z87.891 Personal history of nicotine dependence; Z79.899 Other long term (current) drug therapy | CPT/HCPCS: 11042 ==

== ENCOUNTER → 2021-05-03 | Outpatient (CLI) | payer OTHER | END | disposition home or self-care (01) | LOC: WHH 10:02 | PROVIDERS: ATTEND Podiatrist Foot & Ankle Surgery | DX: E11.621 Type 2 diabetes mellitus with foot ulcer (principal); I70.245 Atherosclerosis of native arteries of left leg with ulceration of other part of foot; L97.522 Non-pressure chronic ulcer of other part of left foot with fat layer exposed; L84 Corns and callosities; E11.40 Type 2 diabetes mellitus with diabetic neuropathy, unspecified; E11.22 Type 2 diabetes mellitus with diabetic chronic kidney disease; I12.9 Hypertensive chronic kidney disease with stage 1 through stage 4 chronic kidney disease, or unspecified chronic kidney disease; N18.31 Chronic kidney disease, stage 3a; M19.079 Primary osteoarthritis, unspecified ankle and foot; Z87.891 Personal history of nicotine dependence; Z79.899 Other long term (current) drug therapy | CPT/HCPCS: 97597 ==

== ENCOUNTER → 2021-05-31 | Outpatient (CLI) | payer OTHER | END | disposition home or self-care (01) | LOC: WHH 09:28 | PROVIDERS: ATTEND Podiatrist Foot & Ankle Surgery | DX: E11.621 Type 2 diabetes mellitus with foot ulcer (principal); I70.245 Atherosclerosis of native arteries of left leg with ulceration of other part of foot; L97.522 Non-pressure chronic ulcer of other part of left foot with fat layer exposed; E11.42 Type 2 diabetes mellitus with diabetic polyneuropathy; E11.22 Type 2 diabetes mellitus with diabetic chronic kidney disease; I12.9 Hypertensive chronic kidney disease with stage 1 through stage 4 chronic kidney disease, or unspecified chronic kidney disease; N18.31 Chronic kidney disease, stage 3a; E78.00 Pure hypercholesterolemia, unspecified; M19.079 Primary osteoarthritis, unspecified ankle and foot; Z87.891 Personal history of nicotine dependence; Z79.899 Other long term (current) drug therapy | CPT/HCPCS: 11042; A6209 ==

== ENCOUNTER → 2021-06-14 | Outpatient (CLI) | payer OTHER ==
[~2021-06-14] MED LIST changes: +SILVER NITRATE APPLICATOR 1 SWAB TP ONE
== END ==
LOC: WHH 09:44
PROVIDERS: ATTEND Podiatrist Foot & Ankle Surgery
DX: E11.621 Type 2 diabetes mellitus with foot ulcer (principal); I70.245 Atherosclerosis of native arteries of left leg with ulceration of other part of foot; L97.522 Non-pressure chronic ulcer of other part of left foot with fat layer exposed; E11.42 Type 2 diabetes mellitus with diabetic polyneuropathy; E11.40 Type 2 diabetes mellitus with diabetic neuropathy, unspecified; E11.69 Type 2 diabetes mellitus with other specified complication; M19.079 Primary osteoarthritis, unspecified ankle and foot; E11.22 Type 2 diabetes mellitus with diabetic chronic kidney disease; I12.9 Hypertensive chronic kidney disease with stage 1 through stage 4 chronic kidney disease, or unspecified chronic kidney disease; N18.31 Chronic kidney disease, stage 3a; E78.00 Pure hypercholesterolemia, unspecified; Z87.891 Personal history of nicotine dependence; Z79.899 Other long term (current) drug therapy
CPT/HCPCS: 11042; A4450; A6209

== ENCOUNTER → 2021-06-28 | Outpatient (CLI) | payer OTHER ==
[~2021-06-28] MED LIST changes: -SILVER NITRATE APPLICATOR 1 SWAB TP ONE
== END ==
LOC: WHH 09:48
PROVIDERS: ATTEND Podiatrist Foot & Ankle Surgery
DX: E11.621 Type 2 diabetes mellitus with foot ulcer (principal); I70.245 Atherosclerosis of native arteries of left leg with ulceration of other part of foot; L97.522 Non-pressure chronic ulcer of other part of left foot with fat layer exposed; L84 Corns and callosities; E11.42 Type 2 diabetes mellitus with diabetic polyneuropathy; E11.40 Type 2 diabetes mellitus with diabetic neuropathy, unspecified; E11.22 Type 2 diabetes mellitus with diabetic chronic kidney disease; I12.9 Hypertensive chronic kidney disease with stage 1 through stage 4 chronic kidney disease, or unspecified chronic kidney disease; N18.31 Chronic kidney disease, stage 3a; M19.079 Primary osteoarthritis, unspecified ankle and foot; E78.00 Pure hypercholesterolemia, unspecified; Z87.891 Personal history of nicotine dependence; Z79.899 Other long term (current) drug therapy
CPT/HCPCS: 11042; A6209

== ENCOUNTER → 2021-07-12 | Outpatient (CLI) | payer OTHER | LOC: WHH 10:13 | PROVIDERS: ATTEND Podiatrist Foot & Ankle Surgery | DX: E11.621 Type 2 diabetes mellitus with foot ulcer (principal); I70.245 Atherosclerosis of native arteries of left leg with ulceration of other part of foot; L97.522 Non-pressure chronic ulcer of other part of left foot with fat layer exposed; L84 Corns and callosities; E11.42 Type 2 diabetes mellitus with diabetic polyneuropathy; E11.40 Type 2 diabetes mellitus with diabetic neuropathy, unspecified; E11.22 Type 2 diabetes mellitus with diabetic chronic kidney disease; I12.9 Hypertensive chronic kidney disease with stage 1 through stage 4 chronic kidney disease, or unspecified chronic kidney disease; N18.31 Chronic kidney disease, stage 3a; E78.00 Pure hypercholesterolemia, unspecified; M19.079 Primary osteoarthritis, unspecified ankle and foot; Z87.891 Personal history of nicotine dependence; Z79.899 Other long term (current) drug therapy | CPT/HCPCS: 11042; A6209; 97597 ==

== ENCOUNTER → 2021-08-16 | Outpatient (CLI) | payer OTHER | END | disposition home or self-care (01) | LOC: WHH 09:27 | PROVIDERS: ATTEND Podiatrist Foot & Ankle Surgery | DX: E11.621 Type 2 diabetes mellitus with foot ulcer (principal); I70.245 Atherosclerosis of native arteries of left leg with ulceration of other part of foot; L97.522 Non-pressure chronic ulcer of other part of left foot with fat layer exposed; B35.1 Tinea unguium; L60.2 Onychogryphosis; L84 Corns and callosities; E11.42 Type 2 diabetes mellitus with diabetic polyneuropathy; E11.22 Type 2 diabetes mellitus with diabetic chronic kidney disease; I12.9 Hypertensive chronic kidney disease with stage 1 through stage 4 chronic kidney disease, or unspecified chronic kidney disease; N18.31 Chronic kidney disease, stage 3a; E78.00 Pure hypercholesterolemia, unspecified; M19.079 Primary osteoarthritis, unspecified ankle and foot; Z87.891 Personal history of nicotine dependence; Z79.899 Other long term (current) drug therapy | CPT/HCPCS: 11042; 11721; A4450; A6209 ==

== ENCOUNTER → 2021-08-30 | Outpatient (CLI) | payer OTHER | END | disposition home or self-care (01) | LOC: WHH 09:38 | PROVIDERS: ATTEND Podiatrist Foot & Ankle Surgery | DX: E11.621 Type 2 diabetes mellitus with foot ulcer (principal); I70.245 Atherosclerosis of native arteries of left leg with ulceration of other part of foot; L97.522 Non-pressure chronic ulcer of other part of left foot with fat layer exposed; L85.9 Epidermal thickening, unspecified; E11.42 Type 2 diabetes mellitus with diabetic polyneuropathy; E11.22 Type 2 diabetes mellitus with diabetic chronic kidney disease; I12.9 Hypertensive chronic kidney disease with stage 1 through stage 4 chronic kidney disease, or unspecified chronic kidney disease; N18.31 Chronic kidney disease, stage 3a; E78.00 Pure hypercholesterolemia, unspecified; M19.079 Primary osteoarthritis, unspecified ankle and foot; Z87.891 Personal history of nicotine dependence; Z79.899 Other long term (current) drug therapy | CPT/HCPCS: 97597; A6207 ==

== ENCOUNTER → 2021-09-20 | Outpatient (CLI) | payer OTHER | END | disposition home or self-care (01) | LOC: WHH 09:38 | PROVIDERS: ATTEND Podiatrist Foot & Ankle Surgery | DX: E11.621 Type 2 diabetes mellitus with foot ulcer (principal); I70.245 Atherosclerosis of native arteries of left leg with ulceration of other part of foot; L97.522 Non-pressure chronic ulcer of other part of left foot with fat layer exposed; L85.9 Epidermal thickening, unspecified; E11.42 Type 2 diabetes mellitus with diabetic polyneuropathy; E11.22 Type 2 diabetes mellitus with diabetic chronic kidney disease; I12.9 Hypertensive chronic kidney disease with stage 1 through stage 4 chronic kidney disease, or unspecified chronic kidney disease; N18.31 Chronic kidney disease, stage 3a; E78.00 Pure hypercholesterolemia, unspecified; M19.079 Primary osteoarthritis, unspecified ankle and foot; Z87.891 Personal history of nicotine dependence; Z79.899 Other long term (current) drug therapy | CPT/HCPCS: 11042; A4450; A6207 ×2 ==

== ENCOUNTER → 2021-10-04 | Outpatient (CLI) | payer OTHER | END | disposition home or self-care (01) | LOC: WHH 09:43 | PROVIDERS: ATTEND Podiatrist Foot & Ankle Surgery | DX: E11.621 Type 2 diabetes mellitus with foot ulcer (principal); I70.245 Atherosclerosis of native arteries of left leg with ulceration of other part of foot; L97.522 Non-pressure chronic ulcer of other part of left foot with fat layer exposed; E11.42 Type 2 diabetes mellitus with diabetic polyneuropathy; E11.22 Type 2 diabetes mellitus with diabetic chronic kidney disease; I12.9 Hypertensive chronic kidney disease with stage 1 through stage 4 chronic kidney disease, or unspecified chronic kidney disease; N18.31 Chronic kidney disease, stage 3a; E11.69 Type 2 diabetes mellitus with other specified complication; M19.079 Primary osteoarthritis, unspecified ankle and foot; L85.9 Epidermal thickening, unspecified; B35.1 Tinea unguium; E78.00 Pure hypercholesterolemia, unspecified; Z87.891 Personal history of nicotine dependence; Z79.899 Other long term (current) drug therapy | CPT/HCPCS: 11042; 11721; A6207 ==

== ENCOUNTER → 2021-10-18 | Outpatient (CLI) | payer OTHER | END | disposition home or self-care (01) | LOC: WHH 09:31 | PROVIDERS: ATTEND Podiatrist Foot & Ankle Surgery | DX: E11.621 Type 2 diabetes mellitus with foot ulcer (principal); I70.245 Atherosclerosis of native arteries of left leg with ulceration of other part of foot; L97.522 Non-pressure chronic ulcer of other part of left foot with fat layer exposed; E11.42 Type 2 diabetes mellitus with diabetic polyneuropathy; E11.22 Type 2 diabetes mellitus with diabetic chronic kidney disease; I12.9 Hypertensive chronic kidney disease with stage 1 through stage 4 chronic kidney disease, or unspecified chronic kidney disease; N18.31 Chronic kidney disease, stage 3a; L85.9 Epidermal thickening, unspecified; E78.00 Pure hypercholesterolemia, unspecified; M19.079 Primary osteoarthritis, unspecified ankle and foot; Z87.891 Personal history of nicotine dependence; Z79.899 Other long term (current) drug therapy | CPT/HCPCS: 11042; A4450; A6209 ==

== ENCOUNTER → 2021-11-22 | Outpatient (CLI) | payer OTHER | END | disposition home or self-care (01) | LOC: WHH 10:47 | PROVIDERS: ATTEND Podiatrist Foot & Ankle Surgery | DX: E11.621 Type 2 diabetes mellitus with foot ulcer (principal); I70.245 Atherosclerosis of native arteries of left leg with ulceration of other part of foot; L97.522 Non-pressure chronic ulcer of other part of left foot with fat layer exposed; E11.42 Type 2 diabetes mellitus with diabetic polyneuropathy; E11.22 Type 2 diabetes mellitus with diabetic chronic kidney disease; I12.9 Hypertensive chronic kidney disease with stage 1 through stage 4 chronic kidney disease, or unspecified chronic kidney disease; N18.31 Chronic kidney disease, stage 3a; L85.9 Epidermal thickening, unspecified; E78.00 Pure hypercholesterolemia, unspecified; M19.079 Primary osteoarthritis, unspecified ankle and foot; Z87.891 Personal history of nicotine dependence; Z79.899 Other long term (current) drug therapy | CPT/HCPCS: 11042; A6209 ==

== ENCOUNTER → 2021-12-06 | Outpatient (CLI) | payer OTHER | END | disposition home or self-care (01) | LOC: WHH 10:25 | PROVIDERS: ATTEND Podiatrist Foot & Ankle Surgery | DX: E11.621 Type 2 diabetes mellitus with foot ulcer (principal); I70.245 Atherosclerosis of native arteries of left leg with ulceration of other part of foot; L97.522 Non-pressure chronic ulcer of other part of left foot with fat layer exposed; E11.42 Type 2 diabetes mellitus with diabetic polyneuropathy; E11.22 Type 2 diabetes mellitus with diabetic chronic kidney disease; I12.9 Hypertensive chronic kidney disease with stage 1 through stage 4 chronic kidney disease, or unspecified chronic kidney disease; N18.31 Chronic kidney disease, stage 3a; L85.9 Epidermal thickening, unspecified; E78.00 Pure hypercholesterolemia, unspecified; M19.079 Primary osteoarthritis, unspecified ankle and foot; Z87.891 Personal history of nicotine dependence; Z79.899 Other long term (current) drug therapy | CPT/HCPCS: 11042; A6209 ==

== ENCOUNTER → 2021-12-27 | Outpatient (CLI) | payer OTHER | END | disposition home or self-care (01) | LOC: WHH 09:48 | PROVIDERS: ATTEND Podiatrist Foot & Ankle Surgery | DX: E11.621 Type 2 diabetes mellitus with foot ulcer (principal); I70.245 Atherosclerosis of native arteries of left leg with ulceration of other part of foot; L97.522 Non-pressure chronic ulcer of other part of left foot with fat layer exposed; E11.42 Type 2 diabetes mellitus with diabetic polyneuropathy; E11.22 Type 2 diabetes mellitus with diabetic chronic kidney disease; I12.9 Hypertensive chronic kidney disease with stage 1 through stage 4 chronic kidney disease, or unspecified chronic kidney disease; N18.31 Chronic kidney disease, stage 3a; L85.9 Epidermal thickening, unspecified; E78.00 Pure hypercholesterolemia, unspecified; M19.079 Primary osteoarthritis, unspecified ankle and foot; Z87.891 Personal history of nicotine dependence; Z79.899 Other long term (current) drug therapy | CPT/HCPCS: 11042; A6209 ==

== ENCOUNTER → 2022-01-10 | Outpatient (CLI) | payer OTHER | END | disposition home or self-care (01) | LOC: WHH 09:53 | PROVIDERS: ATTEND Podiatrist Foot & Ankle Surgery | DX: E11.621 Type 2 diabetes mellitus with foot ulcer (principal); I70.245 Atherosclerosis of native arteries of left leg with ulceration of other part of foot; L97.522 Non-pressure chronic ulcer of other part of left foot with fat layer exposed; M20.22 Hallux rigidus, left foot; L85.9 Epidermal thickening, unspecified; B35.1 Tinea unguium; E11.42 Type 2 diabetes mellitus with diabetic polyneuropathy; E11.22 Type 2 diabetes mellitus with diabetic chronic kidney disease; I12.9 Hypertensive chronic kidney disease with stage 1 through stage 4 chronic kidney disease, or unspecified chronic kidney disease; N18.31 Chronic kidney disease, stage 3a; E78.00 Pure hypercholesterolemia, unspecified; M19.079 Primary osteoarthritis, unspecified ankle and foot; Z87.891 Personal history of nicotine dependence; Z79.899 Other long term (current) drug therapy | CPT/HCPCS: 11042; 11721; A6209 ==

== ENCOUNTER → 2022-01-24 | Outpatient (CLI) | payer OTHER | END | disposition home or self-care (01) | LOC: WHH 09:21 | PROVIDERS: ATTEND Podiatrist Foot & Ankle Surgery | DX: E11.621 Type 2 diabetes mellitus with foot ulcer (principal); I70.245 Atherosclerosis of native arteries of left leg with ulceration of other part of foot; L97.522 Non-pressure chronic ulcer of other part of left foot with fat layer exposed; M20.22 Hallux rigidus, left foot; L85.9 Epidermal thickening, unspecified; B35.1 Tinea unguium; E11.42 Type 2 diabetes mellitus with diabetic polyneuropathy; E11.22 Type 2 diabetes mellitus with diabetic chronic kidney disease; I12.9 Hypertensive chronic kidney disease with stage 1 through stage 4 chronic kidney disease, or unspecified chronic kidney disease; N18.31 Chronic kidney disease, stage 3a; E78.00 Pure hypercholesterolemia, unspecified; M19.079 Primary osteoarthritis, unspecified ankle and foot; Z87.891 Personal history of nicotine dependence; Z79.899 Other long term (current) drug therapy | CPT/HCPCS: 11042; A6209; A4450 ==

== ENCOUNTER → 2022-02-21 | Outpatient (CLI) | payer OTHER | END | disposition home or self-care (01) | LOC: WHH 09:45 | PROVIDERS: ATTEND Podiatrist Foot & Ankle Surgery | DX: E11.621 Type 2 diabetes mellitus with foot ulcer (principal); I70.245 Atherosclerosis of native arteries of left leg with ulceration of other part of foot; L97.522 Non-pressure chronic ulcer of other part of left foot with fat layer exposed; M20.22 Hallux rigidus, left foot; L85.9 Epidermal thickening, unspecified; B35.1 Tinea unguium; E11.42 Type 2 diabetes mellitus with diabetic polyneuropathy; E11.22 Type 2 diabetes mellitus with diabetic chronic kidney disease; I12.9 Hypertensive chronic kidney disease with stage 1 through stage 4 chronic kidney disease, or unspecified chronic kidney disease; N18.31 Chronic kidney disease, stage 3a; E78.00 Pure hypercholesterolemia, unspecified; M19.079 Primary osteoarthritis, unspecified ankle and foot; Z87.891 Personal history of nicotine dependence; Z79.899 Other long term (current) drug therapy | CPT/HCPCS: 11042; A6209; A4450 ==

== ENCOUNTER → 2022-03-14 | Outpatient (CLI) | payer OTHER ==
[~2022-03-14] MED LIST changes: +SILVER NITRATE APPLICATOR 1 SWAB TP ONE
== END | disposition home or self-care (01) ==
LOC: WHH 09:45
PROVIDERS: ATTEND Podiatrist Foot & Ankle Surgery
DX: E11.621 Type 2 diabetes mellitus with foot ulcer (principal); I70.245 Atherosclerosis of native arteries of left leg with ulceration of other part of foot; L97.522 Non-pressure chronic ulcer of other part of left foot with fat layer exposed; E11.42 Type 2 diabetes mellitus with diabetic polyneuropathy; E11.22 Type 2 diabetes mellitus with diabetic chronic kidney disease; I12.9 Hypertensive chronic kidney disease with stage 1 through stage 4 chronic kidney disease, or unspecified chronic kidney disease; N18.31 Chronic kidney disease, stage 3a; M20.22 Hallux rigidus, left foot; L85.9 Epidermal thickening, unspecified; B35.1 Tinea unguium; E78.00 Pure hypercholesterolemia, unspecified; M19.079 Primary osteoarthritis, unspecified ankle and foot; Z87.891 Personal history of nicotine dependence; Z79.899 Other long term (current) drug therapy
CPT/HCPCS: 11042; A6209

== ENCOUNTER → 2022-04-25 | Outpatient (CLI) | payer OTHER ==
[~2022-04-25] MED LIST changes: +AMLO-258 PO; +ATOR10TA69 PO; +INSU100I13 SQ; -LIDOCAINE HCL 4% LTA SOL 4 ML VIAL ONE; +LISI1TAB53 PO; +METF-526 PO; +METO-391 PO; -SILVER NITRATE APPLICATOR 1 SWAB TP ONE
== END | disposition home or self-care (01) ==
LOC: WHH 09:44
PROVIDERS: ATTEND Podiatrist Foot & Ankle Surgery
DX: E11.621 Type 2 diabetes mellitus with foot ulcer (principal); I70.245 Atherosclerosis of native arteries of left leg with ulceration of other part of foot; L97.522 Non-pressure chronic ulcer of other part of left foot with fat layer exposed; L97.422 Non-pressure chronic ulcer of left heel and midfoot with fat layer exposed; I70.235 Atherosclerosis of native arteries of right leg with ulceration of other part of foot; L97.511 Non-pressure chronic ulcer of other part of right foot limited to breakdown of skin; I70.25 Atherosclerosis of native arteries of other extremities with ulceration; E11.42 Type 2 diabetes mellitus with diabetic polyneuropathy; E11.22 Type 2 diabetes mellitus with diabetic chronic kidney disease; I12.9 Hypertensive chronic kidney disease with stage 1 through stage 4 chronic kidney disease, or unspecified chronic kidney disease; N18.31 Chronic kidney disease, stage 3a; M20.22 Hallux rigidus, left foot; L85.9 Epidermal thickening, unspecified; B35.1 Tinea unguium; E78.00 Pure hypercholesterolemia, unspecified; M19.079 Primary osteoarthritis, unspecified ankle and foot; Z87.891 Personal history of nicotine dependence; Z79.899 Other long term (current) drug therapy
CPT/HCPCS: 11042; A6209; A4450

== ENCOUNTER 2022-04-26 09:01 | Inpatient (IN) | payer OTHER ==
[~2022-04-26] VITALS: Ht 190.5 cm; Wt 125.7 kg
[2022-04-26 09:36] LABS: BASOPHILS % (AUTO) 0.3 % (0.0-5.0); EOSINOPHILS % (AUTO) 2.5 % (0.0-8.0); HEMATOCRIT 40.7 % (42-54); LYMPHOCYTES % (AUTO) 7.4 % (21.0-51.0); MEAN CORPUSCULAR HEMOGLOBIN 29.1 pg (27.0-33.0); MEAN CORPUSCULAR HGB CONC 33.2 g/dL (32.0-36.0); MEAN CORPUSCULAR VOLUME 87.7 fL (79-99); MONOCYTES % (AUTO) 8.2 % (3.0-13.0); NEUTROPHILS % (AUTO) 81.2 % (40.0-77.0); PLATELET COUNT (AUTO) 253 K/uL (130-400); RED BLOOD CELL COUNT(AUTO) 4.64 MIL/uL (4.50-6.20); RED CELL DISTRIBUTION WIDTH 13.7 % (11.0-15.5); WHITE BLOOD COUNT (AUTO) 13.9 K/uL (4.8-10.8)
[2022-04-26 09:47] LABS: CREATININE 1.6 mg/dL (0.5-1.5); POTASSIUM 3.5 mmol/L (3.5-5.1)
[2022-04-26 09:50] LABS: ALBUMIN 2.6 g/dL (3.5-5.0); TOTAL PROTEIN, SERUM 7.7 g/dL (6.0-8.3)
[2022-04-26] MEDS ORDERED: VANCOMYCIN 1G/250ML KIT 250 ML IV ONE (10:13)
[2022-04-26] MEDS ORDERED: LACTULOSE 20 GM/30 ML UDCUP PO PRN (10:30)
[2022-04-26] MEDS ORDERED: MAGNESIUM 2GM PREMIX 50ML 50 ML IV PRN (10:30)
[2022-04-26] MEDS ORDERED: CLONIDINE HCL 0.1 MG TABLET PO PRN (10:30)
[2022-04-26] MEDS ORDERED: VANCOMYCIN 1G VIAL IVPB SCH (10:30)
[2022-04-26] MEDS ORDERED: MORPHINE 2 MG SYG IVP PRN (10:30)
[2022-04-26] MEDS ORDERED: DEXTROSE 50%-WATER 50 ML DISP.SYRIN IV PRN (10:30)
[2022-04-26] MEDS ORDERED: 0.9% NACL 250ML IV SCH (10:30)
[2022-04-26] MEDS ORDERED: KCL 20 MEQ ERTAB PO PRN (10:30)
[2022-04-26] MEDS ORDERED: 0.9%NACL 1000ML 1,000 ML IV ONE (10:30)
[2022-04-26] MEDS ORDERED: CEFEPIME HCL 1 GM VIAL IVP SCH (10:30)
[2022-04-26] MEDS ORDERED: LIDOCAINE HCL-MPF 1% 2ML VIAL IV PRN ×2 (10:30)
[2022-04-26] MEDS ORDERED: VANCOMYCIN 1G VIAL IVPB ONE (10:30)
[2022-04-26] MEDS ORDERED: POTASSIUM CHLORIDE 10% ELIXIR 20 MEQ/15 ML UDCUP PO PRN (10:30)
[2022-04-26] MEDS ORDERED: GLUCAGON 1MG KIT 1 MG ML IM PRN (10:30)
[2022-04-26] MEDS ORDERED: POTASSIUM CHLORIDE 10MEQ/100ML 100 ML IV PRN ×2 (10:30)
[2022-04-26] MEDS ORDERED: ZOSYN 3.375GM +NS 50ML IV ONE (10:30)
[2022-04-26] MEDS ORDERED: ACETAMINOPHEN 650 MG SUPPOSITORY RC PRN (10:30)
[2022-04-26] MEDS ORDERED: RENAL DOSE IV PRN (10:30)
[2022-04-26] MEDS: CEFEPIME HCL 2 GM VIAL IVP SCH ×2 (10:33→18:10)
[2022-04-26] MEDS: 0.9%NACL 1000ML 1,000 ML IV SCH ×2 (10:33→18:11)
[2022-04-26 10:37] LABS: ERYTHROCYTE SEDIMENTATION RATE 90 MM/HR (0-20)
[2022-04-26] MEDS: INSULIN HUMULIN R 100 UNIT/ML 3ML SQ SCH ×3 (12:40→20:57)
[2022-04-26] MEDS: ACETAMINOPHEN 325 MG TAB PO PRN ×2 (14:54→18:10)
[2022-04-26 19:54] VITALS: BP 172/77
[2022-04-26] MEDS ORDERED: AMLODIPINE 5 MG TAB PO ONE (20:30)
[2022-04-26] MEDS: SIMVASTATIN 10 MG TABLET PO SCH (20:52)
[2022-04-26] MEDS: INSULIN GLARGINE 100 UNITS/ML 10 ML VIAL SQ SCH (20:58)
[2022-04-26] MEDS: METRONIDAZOLE 500MG/100ML BAG 100 ML IVPB SCH (21:16)
[2022-04-26] MEDS ORDERED: LISI1TAB53 PO (22:15)
[2022-04-26] MEDS ORDERED: METO-391 PO (22:15)
[2022-04-26] MEDS ORDERED: METF-526 PO ×2 (22:15)
[2022-04-26] MEDS ORDERED: ATOR10TA69 PO (22:15)
[2022-04-26] MEDS ORDERED: AMLO-258 PO (22:15)
[2022-04-26] MEDS ORDERED: INSU100I13 SQ (22:20)
[2022-04-27] VITALS (26 sets, daily range): BP systolic 127–187; BP diastolic 48–95
[2022-04-27] MEDS: CEFEPIME HCL 2 GM VIAL IVP SCH ×3 (02:20→19:42)
[2022-04-27] MEDS: 0.9%NACL 1000ML 1,000 ML IV SCH ×2 (02:21→20:04)
[2022-04-27] MEDS: TEMAZEPAM 15 MG CAPSULE PO PRN (02:26)
[2022-04-27 05:12] LABS: MEAN CORPUSCULAR HEMOGLOBIN 28.7 pg (27.0-33.0); MEAN CORPUSCULAR HGB CONC 33.8 g/dL (32.0-36.0); MEAN CORPUSCULAR VOLUME 85.1 fL (79-99); RED BLOOD CELL COUNT(AUTO) 4.35 MIL/uL (4.50-6.20); RED CELL DISTRIBUTION WIDTH 13.7 % (11.0-15.5); WHITE BLOOD COUNT (AUTO) 15.7 K/uL (4.8-10.8)
[2022-04-27 05:19] LABS: HEMOGLOBIN A1C 12.3 % (4.0-6.0)
[2022-04-27 05:22] LABS: INR 0.94 (0.85-1.15); PROTHROMBIN TIME 10.3 SEC (9.6-11.6)
[2022-04-27 05:23] LABS: PARTIAL THROMBOPLASTIN TIME 27.7 SEC (26.3-35.5)
[2022-04-27 05:26] LABS: CREATININE 1.4 mg/dL (0.5-1.5); MAGNESIUM 2.5 mg/dL (1.80-2.40); PHOSPHORUS 2.9 mg/dL (2.5-4.9); POTASSIUM 3.7 mmol/L (3.5-5.1)
[2022-04-27] MEDS: ACETAMINOPHEN 325 MG TAB PO PRN ×2 (05:41→13:08)
[2022-04-27] MEDS: METRONIDAZOLE 500MG/100ML BAG 100 ML IVPB SCH ×3 (05:41→22:03)
[2022-04-27] MEDS: INSULIN HUMULIN R 100 UNIT/ML 3ML SQ SCH ×4 (06:42→20:30)
[2022-04-27] MEDS: INSULIN GLARGINE 100 UNITS/ML 10 ML VIAL SQ SCH ×2 (06:43→20:36)
[2022-04-27] MEDS: ENOXAPARIN SODIUM 40 MG/0.4 ML SYRINGE SQ SCH (09:00)
[2022-04-27] MEDS: ASPIRIN 81MG CHEW TAB PO SCH (09:00)
[2022-04-27] MEDS: POLYETHYLENE GLYCOL 3350 17 GM POWD.PACK PO SCH (09:25)
[2022-04-27] MEDS: ASCORBIC ACID 500 MG TAB PO SCH (09:25)
[2022-04-27] MEDS: FAMOTIDINE 20MG TAB PO SCH ×2 (09:25→19:42)
[2022-04-27] MEDS: AMLODIPINE 5 MG TAB PO SCH (09:26)
[2022-04-27] MEDS ORDERED: LIDOCAINE HCL 1% 20 ML VIAL ONE (14:59)
[2022-04-27] MEDS ORDERED: BUPIVACAINE/PF 0.5% 30ML VIAL ONE (14:59)
[2022-04-27] MEDS ORDERED: PROPOFOL 1000 MG/100 ML 100 ML IV ONE (16:02)
[2022-04-27] MEDS ORDERED: MIDAZOLAM HCL 1 MG/ML 2ML VIAL ONE (18:04)
[2022-04-27] MEDS ORDERED: FENTANYL CITRATE PF 50 MCG/1 ML 2ML VIAL ONE (18:04)
[2022-04-27] MEDS ORDERED: LIDOCAINE HCL 1% 20 ML VIAL MISC ONE (18:06)
[2022-04-27] MEDS: SIMVASTATIN 10 MG TABLET PO SCH (19:42)
[2022-04-28] VITALS (9 sets, daily range): BP systolic 107–177; BP diastolic 40–83
[2022-04-28] MEDS: TEMAZEPAM 15 MG CAPSULE PO PRN ×2 (01:00→22:06)
[2022-04-28] MEDS: CEFEPIME HCL 2 GM VIAL IVP SCH ×3 (01:38→18:14)
[2022-04-28] MEDS: 0.9%NACL 1000ML 1,000 ML IV SCH ×2 (04:12→18:46)
[2022-04-28] MEDS: METRONIDAZOLE 500MG/100ML BAG 100 ML IVPB SCH ×3 (05:36→21:39)
[2022-04-28] MEDS: INSULIN GLARGINE 100 UNITS/ML 10 ML VIAL SQ SCH ×2 (06:15→20:50)
[2022-04-28] MEDS: INSULIN HUMULIN R 100 UNIT/ML 3ML SQ SCH ×4 (06:32→20:51)
[2022-04-28 06:42] LABS: BASOPHILS % (AUTO) 0.4 % (0.0-5.0); HEMATOCRIT 38.3 % (42-54); LYMPHOCYTES % (AUTO) 8.5 % (21.0-51.0); MEAN CORPUSCULAR HEMOGLOBIN 28.7 pg (27.0-33.0); MEAN CORPUSCULAR HGB CONC 33.7 g/dL (32.0-36.0); MEAN CORPUSCULAR VOLUME 85.1 fL (79-99); MONOCYTES % (AUTO) 7.9 % (3.0-13.0); NEUTROPHILS % (AUTO) 80.7 % (40.0-77.0); PLATELET COUNT (AUTO) 321 K/uL (130-400); RED CELL DISTRIBUTION WIDTH 13.8 % (11.0-15.5); WHITE BLOOD COUNT (AUTO) 12.2 K/uL (4.8-10.8)
[2022-04-28] MEDS: ONDANSETRON 4MG INJ IVP PRN (06:48)
[2022-04-28 06:54] LABS: CREATININE 1.2 mg/dL (0.5-1.5); POTASSIUM 3.9 mmol/L (3.5-5.1)
[2022-04-28] MEDS: POLYETHYLENE GLYCOL 3350 17 GM POWD.PACK PO SCH (09:14)
[2022-04-28] MEDS: ASCORBIC ACID 500 MG TAB PO SCH (09:14)
[2022-04-28] MEDS: AMLODIPINE 5 MG TAB PO SCH (09:14)
[2022-04-28] MEDS: FAMOTIDINE 20MG TAB PO SCH ×2 (09:14→20:51)
[2022-04-28] MEDS: ASPIRIN 81MG CHEW TAB PO SCH (09:14)
[2022-04-28] MEDS: ENOXAPARIN SODIUM 40 MG/0.4 ML SYRINGE SQ SCH (09:15)
[2022-04-28] MEDS: SIMVASTATIN 10 MG TABLET PO SCH (20:52)
[2022-04-29] MEDS: CEFEPIME HCL 2 GM VIAL IVP SCH ×3 (02:41→17:17)
[2022-04-29 04:34] VITALS: BP 158/70
[2022-04-29] MEDS: METRONIDAZOLE 500MG/100ML BAG 100 ML IVPB SCH ×3 (05:08→21:38)
[2022-04-29 05:39] LABS: BASOPHILS % (AUTO) 0.5 % (0.0-5.0); EOSINOPHILS % (AUTO) 3.8 % (0.0-8.0); LYMPHOCYTES % (AUTO) 8.8 % (21.0-51.0); MEAN CORPUSCULAR HEMOGLOBIN 28.8 pg (27.0-33.0); MEAN CORPUSCULAR HGB CONC 33.7 g/dL (32.0-36.0); MEAN CORPUSCULAR VOLUME 85.4 fL (79-99); MONOCYTES % (AUTO) 8.6 % (3.0-13.0); NEUTROPHILS % (AUTO) 77.6 % (40.0-77.0); PLATELET COUNT (AUTO) 365 K/uL (130-400); RED BLOOD CELL COUNT(AUTO) 4.45 MIL/uL (4.50-6.20); RED CELL DISTRIBUTION WIDTH 13.8 % (11.0-15.5); WHITE BLOOD COUNT (AUTO) 10.9 K/uL (4.8-10.8)
[2022-04-29] MEDS: ACETAMINOPHEN 325 MG TAB PO PRN ×2 (05:56→15:36)
[2022-04-29 05:58] LABS: CREATININE 1.2 mg/dL (0.5-1.5); POTASSIUM 4.1 mmol/L (3.5-5.1)
[2022-04-29] MEDS: INSULIN GLARGINE 100 UNITS/ML 10 ML VIAL SQ SCH ×2 (06:18→21:05)
[2022-04-29] MEDS: INSULIN HUMULIN R 100 UNIT/ML 3ML SQ SCH ×4 (06:19→20:53)
[2022-04-29 08:00] VITALS: BP 151/78
[2022-04-29] MEDS ORDERED: METOPROLOL SUCCINATE 50 MG TAB.SR.24H PO SCH (09:00)
[2022-04-29] MEDS: HYDROCHLOROTHIAZIDE 25 MG TABLET PO SCH (10:26)
[2022-04-29] MEDS: ATORVASTATIN 10 MG TABLET PO SCH (10:26)
[2022-04-29] MEDS: FAMOTIDINE 20MG TAB PO SCH ×2 (10:26→19:48)
[2022-04-29] MEDS: AMLODIPINE 5 MG TAB PO SCH (10:26)
[2022-04-29] MEDS: ASPIRIN 81MG CHEW TAB PO SCH (10:27)
[2022-04-29] MEDS: ASCORBIC ACID 500 MG TAB PO SCH (10:27)
[2022-04-29] MEDS: LISINOPRIL 20 MG TABLET PO SCH (10:27)
[2022-04-29] MEDS: POLYETHYLENE GLYCOL 3350 17 GM POWD.PACK PO SCH (10:27)
[2022-04-29] MEDS: ENOXAPARIN SODIUM 40 MG/0.4 ML SYRINGE SQ SCH (10:29)
[2022-04-29] MEDS: TRAMADOL /APAP 37.5MG/325MG TAB PO PRN (11:01)
[2022-04-29 12:00] VITALS: BP 169/73
[2022-04-29] MEDS ORDERED: FUROSEMIDE 40MG VIAL IV ONE (13:00)
[2022-04-29] MEDS ORDERED: FUROSEMIDE 20MG VIAL IV ONE (13:00)
[2022-04-29] MEDS ORDERED: METOPROLOL SUCCINATE 50 MG TAB.SR.24H PO ONE (13:30)
[2022-04-29 16:00] VITALS: BP 141/58
[2022-04-29] MEDS: ONDANSETRON 4MG INJ IVP PRN (19:49)
[2022-04-29 20:00] VITALS: BP 149/80
[2022-04-29] MEDS: TEMAZEPAM 15 MG CAPSULE PO PRN (23:17)
[2022-04-30] VITALS (7 sets, daily range): BP systolic 127–163; BP diastolic 62–79
[2022-04-30] MEDS: CEFEPIME HCL 2 GM VIAL IVP SCH ×3 (02:00→18:31)
[2022-04-30 04:06] LABS: BASOPHILS % (AUTO) 0.6 % (0.0-5.0); EOSINOPHILS % (AUTO) 4.2 % (0.0-8.0); HEMATOCRIT 38.9 % (42-54); LYMPHOCYTES % (AUTO) 13.1 % (21.0-51.0); MEAN CORPUSCULAR HEMOGLOBIN 28.7 pg (27.0-33.0); MEAN CORPUSCULAR HGB CONC 32.6 g/dL (32.0-36.0); MEAN CORPUSCULAR VOLUME 87.8 fL (79-99); MONOCYTES % (AUTO) 9.6 % (3.0-13.0); NEUTROPHILS % (AUTO) 71.6 % (40.0-77.0); PLATELET COUNT (AUTO) 379 K/uL (130-400); RED BLOOD CELL COUNT(AUTO) 4.43 MIL/uL (4.50-6.20); RED CELL DISTRIBUTION WIDTH 13.7 % (11.0-15.5); WHITE BLOOD COUNT (AUTO) 9.6 K/uL (4.8-10.8)
[2022-04-30 04:12] LABS: CREATININE 1.3 mg/dL (0.5-1.5)
[2022-04-30] MEDS: METRONIDAZOLE 500MG/100ML BAG 100 ML IVPB SCH ×2 (06:35→14:01)
[2022-04-30] MEDS: INSULIN GLARGINE 100 UNITS/ML 10 ML VIAL SQ SCH ×2 (06:36→20:33)
[2022-04-30] MEDS: INSULIN HUMULIN R 100 UNIT/ML 3ML SQ SCH ×4 (06:37→20:32)
[2022-04-30] MEDS: POLYETHYLENE GLYCOL 3350 17 GM POWD.PACK PO SCH (09:00)
[2022-04-30] MEDS: ASPIRIN 81MG CHEW TAB PO SCH (09:25)
[2022-04-30] MEDS: METOPROLOL SUCCINATE 50 MG TAB.SR.24H PO SCH (09:25)
[2022-04-30] MEDS: HYDROCHLOROTHIAZIDE 25 MG TABLET PO SCH (09:26)
[2022-04-30] MEDS: FAMOTIDINE 20MG TAB PO SCH ×2 (09:26→20:34)
[2022-04-30] MEDS: ATORVASTATIN 10 MG TABLET PO SCH (09:26)
[2022-04-30] MEDS: AMLODIPINE 5 MG TAB PO SCH (09:26)
[2022-04-30] MEDS: LISINOPRIL 20 MG TABLET PO SCH (09:27)
[2022-04-30] MEDS: ENOXAPARIN SODIUM 40 MG/0.4 ML SYRINGE SQ SCH (09:28)
[2022-04-30] MEDS: ASCORBIC ACID 500 MG TAB PO SCH (09:28)
[2022-04-30] MEDS: ACETAMINOPHEN 325 MG TAB PO PRN (10:58)
[2022-04-30] MEDS: TEMAZEPAM 15 MG CAPSULE PO PRN (22:40)
[2022-05-01] MEDS: CEFEPIME HCL 2 GM VIAL IVP SCH ×3 (01:34→18:26)
[2022-05-01 03:00] VITALS: BP 129/48
[2022-05-01 05:10] LABS: BASOPHILS % (AUTO) 0.7 % (0.0-5.0); EOSINOPHILS % (AUTO) 4.6 % (0.0-8.0); LYMPHOCYTES % (AUTO) 16.3 % (21.0-51.0); MEAN CORPUSCULAR HEMOGLOBIN 28.9 pg (27.0-33.0); MEAN CORPUSCULAR HGB CONC 33.9 g/dL (32.0-36.0); MONOCYTES % (AUTO) 9.1 % (3.0-13.0); NEUTROPHILS % (AUTO) 67.8 % (40.0-77.0); PLATELET COUNT (AUTO) 445 K/uL (130-400); RED BLOOD CELL COUNT(AUTO) 4.47 MIL/uL (4.50-6.20); RED CELL DISTRIBUTION WIDTH 13.8 % (11.0-15.5); WHITE BLOOD COUNT (AUTO) 10.9 K/uL (4.8-10.8)
[2022-05-01 05:23] LABS: CREATININE 1.3 mg/dL (0.5-1.5); POTASSIUM 3.7 mmol/L (3.5-5.1)
[2022-05-01] MEDS: INSULIN HUMULIN R 100 UNIT/ML 3ML SQ SCH ×4 (06:39→20:28)
[2022-05-01] MEDS: INSULIN GLARGINE 100 UNITS/ML 10 ML VIAL SQ SCH ×2 (07:00→20:28)
[2022-05-01 08:00] VITALS: BP 148/67
[2022-05-01] MEDS: POLYETHYLENE GLYCOL 3350 17 GM POWD.PACK PO SCH (09:00)
[2022-05-01] MEDS: FAMOTIDINE 20MG TAB PO SCH ×2 (09:21→20:27)
[2022-05-01] MEDS: METOPROLOL SUCCINATE 50 MG TAB.SR.24H PO SCH (09:22)
[2022-05-01] MEDS: AMLODIPINE 5 MG TAB PO SCH (09:22)
[2022-05-01] MEDS: ASPIRIN 81MG CHEW TAB PO SCH (09:22)
[2022-05-01] MEDS: ASCORBIC ACID 500 MG TAB PO SCH (09:22)
[2022-05-01] MEDS: ATORVASTATIN 10 MG TABLET PO SCH (09:23)
[2022-05-01] MEDS: HYDROCHLOROTHIAZIDE 25 MG TABLET PO SCH (09:23)
[2022-05-01] MEDS: LISINOPRIL 20 MG TABLET PO SCH (09:23)
[2022-05-01] MEDS: ENOXAPARIN SODIUM 40 MG/0.4 ML SYRINGE SQ SCH (09:24)
[2022-05-01] MEDS: ACETAMINOPHEN 325 MG TAB PO PRN (11:28)
[2022-05-01 11:51] VITALS: BP 143/68
[2022-05-01] MEDS ORDERED: VANCOMYCIN 2GM/500 ML BAG 500 ML IV ONE (13:00)
[2022-05-01 16:00] VITALS: BP 156/57
[2022-05-01 20:00] VITALS: BP 118/89
[2022-05-01] MEDS: VANCOMYCIN 1G/250ML KIT 250 ML IV SCH (21:19)
[2022-05-01] MEDS: TEMAZEPAM 15 MG CAPSULE PO PRN (23:17)
[2022-05-02] VITALS: BP 129/82
[2022-05-02] MEDS: CEFEPIME HCL 2 GM VIAL IVP SCH ×2 (02:24→10:50)
[2022-05-02 04:00] VITALS: BP 150/71
[2022-05-02 05:42] LABS: BASOPHILS % (AUTO) 1.1 % (0.0-5.0); EOSINOPHILS % (AUTO) 4.4 % (0.0-8.0); LYMPHOCYTES % (AUTO) 18.4 % (21.0-51.0); MEAN CORPUSCULAR HEMOGLOBIN 28.8 pg (27.0-33.0); MEAN CORPUSCULAR HGB CONC 33.6 g/dL (32.0-36.0); MEAN CORPUSCULAR VOLUME 85.7 fL (79-99); MONOCYTES % (AUTO) 7.9 % (3.0-13.0); NEUTROPHILS % (AUTO) 65.9 % (40.0-77.0); PLATELET COUNT (AUTO) 503 K/uL (130-400); RED CELL DISTRIBUTION WIDTH 14.1 % (11.0-15.5); WHITE BLOOD COUNT (AUTO) 10.1 K/uL (4.8-10.8)
[2022-05-02 06:00] LABS: ALBUMIN 2.5 g/dL (3.5-5.0); CREATININE 1.3 mg/dL (0.5-1.5); POTASSIUM 4.3 mmol/L (3.5-5.1); TOTAL PROTEIN, SERUM 8.3 g/dL (6.0-8.3)
[2022-05-02] MEDS: INSULIN HUMULIN R 100 UNIT/ML 3ML SQ SCH ×2 (06:40→11:03)
[2022-05-02] MEDS: INSULIN GLARGINE 100 UNITS/ML 10 ML VIAL SQ SCH (06:41)
[2022-05-02 07:20] VITALS: BP 156/69
[2022-05-02] MEDS ORDERED: 0.9% NACL 250ML 250 ML ONE (08:57)
[2022-05-02] MEDS: POLYETHYLENE GLYCOL 3350 17 GM POWD.PACK PO SCH (09:00)
[2022-05-02] MEDS: VANCOMYCIN 1G/250ML KIT 250 ML IV SCH (09:01)
[2022-05-02] MEDS: METOPROLOL SUCCINATE 50 MG TAB.SR.24H PO SCH (09:02)
[2022-05-02] MEDS: LISINOPRIL 20 MG TABLET PO SCH (09:02)
[2022-05-02] MEDS: FAMOTIDINE 20MG TAB PO SCH (09:02)
[2022-05-02] MEDS: ASCORBIC ACID 500 MG TAB PO SCH (09:02)
[2022-05-02] MEDS: HYDROCHLOROTHIAZIDE 25 MG TABLET PO SCH (09:02)
[2022-05-02] MEDS: AMLODIPINE 5 MG TAB PO SCH (09:03)
[2022-05-02] MEDS: ATORVASTATIN 10 MG TABLET PO SCH (09:03)
[2022-05-02] MEDS: ASPIRIN 81MG CHEW TAB PO SCH (09:03)
[2022-05-02] MEDS: TRAMADOL /APAP 37.5MG/325MG TAB PO PRN (09:06)
[2022-05-02] MEDS: ENOXAPARIN SODIUM 40 MG/0.4 ML SYRINGE SQ SCH (09:06)
[2022-05-02 10:50] VITALS: BP 160/64
[2022-05-02 10:56] VITALS: BP 160/64
== END 2022-05-02 13:10 | DRG 255 ==
LOC: EDH 09:01 → EDHIP 10:22 → 3CH 15:02
PROVIDERS: ADMIT Internal Medicine Critical Care Medicine; ATTEND Internal Medicine Critical Care Medicine
PROC: 0Y6R0Z0 Detachment at Right 2nd Toe, Complete, Open Approach (ICD-10-PCS; 2022-04-27)
PROC: 0Y6P0Z0 Detachment at Right 1st Toe, Complete, Open Approach (ICD-10-PCS; principal; 2022-04-27 17:59)
DX: E11.52 Type 2 diabetes mellitus with diabetic peripheral angiopathy with gangrene (principal); N18.6 End stage renal disease; I12.0 Hypertensive chronic kidney disease with stage 5 chronic kidney disease or end stage renal disease; M86.8X7 Other osteomyelitis, ankle and foot; Z20.822 Contact with and (suspected) exposure to COVID-19; E11.69 Type 2 diabetes mellitus with other specified complication; L97.519 Non-pressure chronic ulcer of other part of right foot with unspecified severity; E11.621 Type 2 diabetes mellitus with foot ulcer; G47.33 Obstructive sleep apnea (adult) (pediatric); L97.522 Non-pressure chronic ulcer of other part of left foot with fat layer exposed; E11.22 Type 2 diabetes mellitus with diabetic chronic kidney disease; E66.01 Morbid (severe) obesity due to excess calories; E11.42 Type 2 diabetes mellitus with diabetic polyneuropathy; E11.65 Type 2 diabetes mellitus with hyperglycemia; E78.00 Pure hypercholesterolemia, unspecified; Z63.4 Disappearance and death of family member; Z87.891 Personal history of nicotine dependence; Z89.421 Acquired absence of other right toe(s); Z68.34 Body mass index [BMI] 34.0-34.9, adult
CPT/HCPCS: 36415; 71045; 73630; 73718; 80048; 80053; 80061; 82948; 83036; 83605; 83735; 84100; 84145; 85025; 85027; 85610; 85651; 85730; 87070; 87076; 87077; 87186; 87635; 93005; 93925; 93970; 96365; 96375; 97039; 99291; G0378; J0692; J1650; J1815; J1940; J2250; J2405; J2543; J2704; J3010; J3370; J3490; J7030; J7050

== ENCOUNTER → 2022-05-09 | Outpatient (CLI) | payer OTHER | END | disposition home or self-care (01) | LOC: WHH 11:00 | PROVIDERS: ATTEND Podiatrist Foot & Ankle Surgery | DX: T87.89 Other complications of amputation stump (principal); E11.621 Type 2 diabetes mellitus with foot ulcer; I70.245 Atherosclerosis of native arteries of left leg with ulceration of other part of foot; L97.522 Non-pressure chronic ulcer of other part of left foot with fat layer exposed; L97.422 Non-pressure chronic ulcer of left heel and midfoot with fat layer exposed; I70.235 Atherosclerosis of native arteries of right leg with ulceration of other part of foot; L97.511 Non-pressure chronic ulcer of other part of right foot limited to breakdown of skin; I70.25 Atherosclerosis of native arteries of other extremities with ulceration; E11.42 Type 2 diabetes mellitus with diabetic polyneuropathy; E11.22 Type 2 diabetes mellitus with diabetic chronic kidney disease; I12.9 Hypertensive chronic kidney disease with stage 1 through stage 4 chronic kidney disease, or unspecified chronic kidney disease; N18.31 Chronic kidney disease, stage 3a; M20.22 Hallux rigidus, left foot; L85.9 Epidermal thickening, unspecified; B35.1 Tinea unguium; E78.00 Pure hypercholesterolemia, unspecified; M19.079 Primary osteoarthritis, unspecified ankle and foot; Z87.891 Personal history of nicotine dependence; Z79.899 Other long term (current) drug therapy; Y83.5 Amputation of limb(s) as the cause of abnormal reaction of the patient, or of later complication, without mention of misadventure at the time of the procedure | CPT/HCPCS: G0463; A6209 ==

== ENCOUNTER → 2022-05-16 | Outpatient (CLI) | payer OTHER ==
[~2022-05-16] MED LIST changes: +LIDOCAINE HCL 4% LTA SOL 4 ML VIAL TP ONE
== END | disposition home or self-care (01) ==
LOC: WHH 08:45
PROVIDERS: ATTEND Podiatrist Foot & Ankle Surgery
DX: T87.81 Dehiscence of amputation stump (principal); E11.621 Type 2 diabetes mellitus with foot ulcer; I70.245 Atherosclerosis of native arteries of left leg with ulceration of other part of foot; L97.522 Non-pressure chronic ulcer of other part of left foot with fat layer exposed; I70.235 Atherosclerosis of native arteries of right leg with ulceration of other part of foot; L97.512 Non-pressure chronic ulcer of other part of right foot with fat layer exposed; E11.51 Type 2 diabetes mellitus with diabetic peripheral angiopathy without gangrene; E11.42 Type 2 diabetes mellitus with diabetic polyneuropathy; E11.22 Type 2 diabetes mellitus with diabetic chronic kidney disease; I12.9 Hypertensive chronic kidney disease with stage 1 through stage 4 chronic kidney disease, or unspecified chronic kidney disease; N18.31 Chronic kidney disease, stage 3a; E11.69 Type 2 diabetes mellitus with other specified complication; M86.8X7 Other osteomyelitis, ankle and foot; G47.30 Sleep apnea, unspecified; E78.00 Pure hypercholesterolemia, unspecified; L85.9 Epidermal thickening, unspecified; L84 Corns and callosities; M20.22 Hallux rigidus, left foot; B35.1 Tinea unguium; M19.079 Primary osteoarthritis, unspecified ankle and foot; Z87.891 Personal history of nicotine dependence; Z79.899 Other long term (current) drug therapy; Y83.5 Amputation of limb(s) as the cause of abnormal reaction of the patient, or of later complication, without mention of misadventure at the time of the procedure
CPT/HCPCS: 11042; 11056; A6209; 11055

== ENCOUNTER → 2022-05-23 | Outpatient (CLI) | payer OTHER | END | disposition home or self-care (01) | LOC: WHH 10:10 | PROVIDERS: ATTEND Podiatrist Foot & Ankle Surgery | DX: T87.89 Other complications of amputation stump (principal); B35.1 Tinea unguium; E11.621 Type 2 diabetes mellitus with foot ulcer; I70.245 Atherosclerosis of native arteries of left leg with ulceration of other part of foot; L97.522 Non-pressure chronic ulcer of other part of left foot with fat layer exposed; I70.244 Atherosclerosis of native arteries of left leg with ulceration of heel and midfoot; L97.421 Non-pressure chronic ulcer of left heel and midfoot limited to breakdown of skin; I70.25 Atherosclerosis of native arteries of other extremities with ulceration; E11.42 Type 2 diabetes mellitus with diabetic polyneuropathy; E11.22 Type 2 diabetes mellitus with diabetic chronic kidney disease; I12.9 Hypertensive chronic kidney disease with stage 1 through stage 4 chronic kidney disease, or unspecified chronic kidney disease; N18.31 Chronic kidney disease, stage 3a; M20.22 Hallux rigidus, left foot; L85.9 Epidermal thickening, unspecified; E78.00 Pure hypercholesterolemia, unspecified; M19.079 Primary osteoarthritis, unspecified ankle and foot; Z87.891 Personal history of nicotine dependence; Z79.899 Other long term (current) drug therapy; Y83.5 Amputation of limb(s) as the cause of abnormal reaction of the patient, or of later complication, without mention of misadventure at the time of the procedure | CPT/HCPCS: 11721; A6209; A4450 ==

== ENCOUNTER → 2022-06-06 | Outpatient (CLI) | payer OTHER ==
[~2022-06-06] MED LIST changes: -LIDOCAINE HCL 4% LTA SOL 4 ML VIAL TP ONE
== END | disposition home or self-care (01) ==
LOC: WHH 09:39
PROVIDERS: ATTEND Podiatrist Foot & Ankle Surgery
DX: T87.81 Dehiscence of amputation stump (principal); E11.621 Type 2 diabetes mellitus with foot ulcer; I70.245 Atherosclerosis of native arteries of left leg with ulceration of other part of foot; L97.522 Non-pressure chronic ulcer of other part of left foot with fat layer exposed; I70.244 Atherosclerosis of native arteries of left leg with ulceration of heel and midfoot; L97.422 Non-pressure chronic ulcer of left heel and midfoot with fat layer exposed; I70.25 Atherosclerosis of native arteries of other extremities with ulceration; E11.42 Type 2 diabetes mellitus with diabetic polyneuropathy; E11.610 Type 2 diabetes mellitus with diabetic neuropathic arthropathy; E11.22 Type 2 diabetes mellitus with diabetic chronic kidney disease; I12.9 Hypertensive chronic kidney disease with stage 1 through stage 4 chronic kidney disease, or unspecified chronic kidney disease; N18.31 Chronic kidney disease, stage 3a; M20.22 Hallux rigidus, left foot; B35.1 Tinea unguium; L85.9 Epidermal thickening, unspecified; E78.00 Pure hypercholesterolemia, unspecified; M19.079 Primary osteoarthritis, unspecified ankle and foot; Z87.891 Personal history of nicotine dependence; Z79.899 Other long term (current) drug therapy; Y83.5 Amputation of limb(s) as the cause of abnormal reaction of the patient, or of later complication, without mention of misadventure at the time of the procedure
CPT/HCPCS: 11042; 82948; A6209

== ENCOUNTER → 2022-06-20 | Outpatient (CLI) | payer OTHER | END | disposition home or self-care (01) | LOC: WHH 09:47 | PROVIDERS: ATTEND Podiatrist Foot & Ankle Surgery | DX: T87.81 Dehiscence of amputation stump (principal); E11.621 Type 2 diabetes mellitus with foot ulcer; I70.245 Atherosclerosis of native arteries of left leg with ulceration of other part of foot; L97.522 Non-pressure chronic ulcer of other part of left foot with fat layer exposed; I70.244 Atherosclerosis of native arteries of left leg with ulceration of heel and midfoot; L97.422 Non-pressure chronic ulcer of left heel and midfoot with fat layer exposed; I70.25 Atherosclerosis of native arteries of other extremities with ulceration; E11.42 Type 2 diabetes mellitus with diabetic polyneuropathy; E11.610 Type 2 diabetes mellitus with diabetic neuropathic arthropathy; E11.22 Type 2 diabetes mellitus with diabetic chronic kidney disease; I12.9 Hypertensive chronic kidney disease with stage 1 through stage 4 chronic kidney disease, or unspecified chronic kidney disease; N18.31 Chronic kidney disease, stage 3a; M20.22 Hallux rigidus, left foot; B35.1 Tinea unguium; L85.9 Epidermal thickening, unspecified; E78.00 Pure hypercholesterolemia, unspecified; M19.079 Primary osteoarthritis, unspecified ankle and foot; Z87.891 Personal history of nicotine dependence; Z79.899 Other long term (current) drug therapy; Y83.5 Amputation of limb(s) as the cause of abnormal reaction of the patient, or of later complication, without mention of misadventure at the time of the procedure | CPT/HCPCS: 11042; A6209; A4450 ==

== ENCOUNTER → 2022-08-08 | Outpatient (CLI) | payer OTHER | END | disposition home or self-care (01) | LOC: WHH 10:12 | PROVIDERS: ATTEND Podiatrist Foot & Ankle Surgery | DX: T87.81 Dehiscence of amputation stump (principal); E11.621 Type 2 diabetes mellitus with foot ulcer; I70.245 Atherosclerosis of native arteries of left leg with ulceration of other part of foot; L97.522 Non-pressure chronic ulcer of other part of left foot with fat layer exposed; I70.244 Atherosclerosis of native arteries of left leg with ulceration of heel and midfoot; L97.422 Non-pressure chronic ulcer of left heel and midfoot with fat layer exposed; I70.25 Atherosclerosis of native arteries of other extremities with ulceration; E11.42 Type 2 diabetes mellitus with diabetic polyneuropathy; E11.610 Type 2 diabetes mellitus with diabetic neuropathic arthropathy; E11.22 Type 2 diabetes mellitus with diabetic chronic kidney disease; I12.9 Hypertensive chronic kidney disease with stage 1 through stage 4 chronic kidney disease, or unspecified chronic kidney disease; N18.31 Chronic kidney disease, stage 3a; L85.9 Epidermal thickening, unspecified; B35.1 Tinea unguium; E78.00 Pure hypercholesterolemia, unspecified; M20.22 Hallux rigidus, left foot; M19.079 Primary osteoarthritis, unspecified ankle and foot; Z87.891 Personal history of nicotine dependence; Z79.899 Other long term (current) drug therapy; Y83.5 Amputation of limb(s) as the cause of abnormal reaction of the patient, or of later complication, without mention of misadventure at the time of the procedure | CPT/HCPCS: 11042; A6209; A4450 ==

== ENCOUNTER → 2022-09-12 | Outpatient (CLI) | payer OTHER | END | disposition home or self-care (01) | LOC: WHH 09:05 | PROVIDERS: ATTEND Podiatrist Foot & Ankle Surgery | DX: T87.81 Dehiscence of amputation stump (principal); E11.621 Type 2 diabetes mellitus with foot ulcer; I70.245 Atherosclerosis of native arteries of left leg with ulceration of other part of foot; L97.522 Non-pressure chronic ulcer of other part of left foot with fat layer exposed; I70.244 Atherosclerosis of native arteries of left leg with ulceration of heel and midfoot; L97.422 Non-pressure chronic ulcer of left heel and midfoot with fat layer exposed; I70.25 Atherosclerosis of native arteries of other extremities with ulceration; E11.42 Type 2 diabetes mellitus with diabetic polyneuropathy; E11.610 Type 2 diabetes mellitus with diabetic neuropathic arthropathy; E11.22 Type 2 diabetes mellitus with diabetic chronic kidney disease; I12.9 Hypertensive chronic kidney disease with stage 1 through stage 4 chronic kidney disease, or unspecified chronic kidney disease; N18.31 Chronic kidney disease, stage 3a; L85.9 Epidermal thickening, unspecified; B35.1 Tinea unguium; E78.00 Pure hypercholesterolemia, unspecified; M20.22 Hallux rigidus, left foot; M19.079 Primary osteoarthritis, unspecified ankle and foot; Z87.891 Personal history of nicotine dependence; Z79.899 Other long term (current) drug therapy; Y83.5 Amputation of limb(s) as the cause of abnormal reaction of the patient, or of later complication, without mention of misadventure at the time of the procedure | CPT/HCPCS: 11042; 97597; A6209 ==

== ENCOUNTER → 2022-11-07 | Outpatient (CLI) | payer OTHER | END | disposition home or self-care (01) | LOC: WHH 09:56 | PROVIDERS: ATTEND Podiatrist Foot & Ankle Surgery | DX: E11.621 Type 2 diabetes mellitus with foot ulcer (principal); I70.245 Atherosclerosis of native arteries of left leg with ulceration of other part of foot; L97.522 Non-pressure chronic ulcer of other part of left foot with fat layer exposed; E11.42 Type 2 diabetes mellitus with diabetic polyneuropathy; E11.22 Type 2 diabetes mellitus with diabetic chronic kidney disease; I12.9 Hypertensive chronic kidney disease with stage 1 through stage 4 chronic kidney disease, or unspecified chronic kidney disease; N18.31 Chronic kidney disease, stage 3a; B35.1 Tinea unguium; E78.00 Pure hypercholesterolemia, unspecified; M19.079 Primary osteoarthritis, unspecified ankle and foot; Z89.9 Acquired absence of limb, unspecified; Z87.891 Personal history of nicotine dependence; Z79.899 Other long term (current) drug therapy | CPT/HCPCS: 11042; A6209 ==

== ENCOUNTER → 2022-12-05 | Outpatient (CLI) | payer OTHER | END | disposition home or self-care (01) | LOC: WHH 09:59 | PROVIDERS: ATTEND Podiatrist Foot & Ankle Surgery | DX: E11.621 Type 2 diabetes mellitus with foot ulcer (principal); I70.245 Atherosclerosis of native arteries of left leg with ulceration of other part of foot; L97.522 Non-pressure chronic ulcer of other part of left foot with fat layer exposed; E11.42 Type 2 diabetes mellitus with diabetic polyneuropathy; E11.22 Type 2 diabetes mellitus with diabetic chronic kidney disease; I12.9 Hypertensive chronic kidney disease with stage 1 through stage 4 chronic kidney disease, or unspecified chronic kidney disease; N18.31 Chronic kidney disease, stage 3a; B35.1 Tinea unguium; E78.00 Pure hypercholesterolemia, unspecified; M19.079 Primary osteoarthritis, unspecified ankle and foot; Z89.9 Acquired absence of limb, unspecified; Z87.891 Personal history of nicotine dependence; Z79.899 Other long term (current) drug therapy | CPT/HCPCS: 11042; A6209; A4450 ==

== ENCOUNTER → 2022-12-19 | Outpatient (CLI) | payer OTHER | END | disposition home or self-care (01) | LOC: WHH 10:04 | PROVIDERS: ATTEND Podiatrist Foot & Ankle Surgery | DX: E11.621 Type 2 diabetes mellitus with foot ulcer (principal); I70.245 Atherosclerosis of native arteries of left leg with ulceration of other part of foot; L97.522 Non-pressure chronic ulcer of other part of left foot with fat layer exposed; E11.42 Type 2 diabetes mellitus with diabetic polyneuropathy; E11.22 Type 2 diabetes mellitus with diabetic chronic kidney disease; I12.9 Hypertensive chronic kidney disease with stage 1 through stage 4 chronic kidney disease, or unspecified chronic kidney disease; N18.31 Chronic kidney disease, stage 3a; B35.1 Tinea unguium; E78.00 Pure hypercholesterolemia, unspecified; M19.079 Primary osteoarthritis, unspecified ankle and foot; Z89.9 Acquired absence of limb, unspecified; Z79.899 Other long term (current) drug therapy | CPT/HCPCS: 11042; A6209; A4450 ==

== ENCOUNTER → 2023-01-02 | Outpatient (CLI) | payer OTHER | END | disposition home or self-care (01) | LOC: WHH 10:02 | PROVIDERS: ATTEND Podiatrist Foot & Ankle Surgery | DX: E11.621 Type 2 diabetes mellitus with foot ulcer (principal); I70.245 Atherosclerosis of native arteries of left leg with ulceration of other part of foot; L97.522 Non-pressure chronic ulcer of other part of left foot with fat layer exposed; I70.244 Atherosclerosis of native arteries of left leg with ulceration of heel and midfoot; L97.512 Non-pressure chronic ulcer of other part of right foot with fat layer exposed; E11.42 Type 2 diabetes mellitus with diabetic polyneuropathy; E11.22 Type 2 diabetes mellitus with diabetic chronic kidney disease; I12.9 Hypertensive chronic kidney disease with stage 1 through stage 4 chronic kidney disease, or unspecified chronic kidney disease; N18.31 Chronic kidney disease, stage 3a; B35.1 Tinea unguium; E78.00 Pure hypercholesterolemia, unspecified; M19.079 Primary osteoarthritis, unspecified ankle and foot; Z89.9 Acquired absence of limb, unspecified; Z79.899 Other long term (current) drug therapy | CPT/HCPCS: 11042; A6209 ==

== ENCOUNTER → 2023-02-13 | Outpatient (CLI) | payer OTHER | END | disposition home or self-care (01) | LOC: WHH 11:06 | PROVIDERS: ATTEND Podiatrist Foot & Ankle Surgery | DX: E11.621 Type 2 diabetes mellitus with foot ulcer (principal); I70.245 Atherosclerosis of native arteries of left leg with ulceration of other part of foot; L97.522 Non-pressure chronic ulcer of other part of left foot with fat layer exposed; I70.244 Atherosclerosis of native arteries of left leg with ulceration of heel and midfoot; L97.512 Non-pressure chronic ulcer of other part of right foot with fat layer exposed; E11.42 Type 2 diabetes mellitus with diabetic polyneuropathy; I12.9 Hypertensive chronic kidney disease with stage 1 through stage 4 chronic kidney disease, or unspecified chronic kidney disease; N18.31 Chronic kidney disease, stage 3a; B35.1 Tinea unguium; E78.00 Pure hypercholesterolemia, unspecified; M19.079 Primary osteoarthritis, unspecified ankle and foot; Z89.9 Acquired absence of limb, unspecified; Z79.899 Other long term (current) drug therapy | CPT/HCPCS: 11042; A6209; A4450 ==

== ENCOUNTER → 2023-03-06 | Outpatient (CLI) | payer OTHER ==
[~2023-03-06] MED LIST changes: +SILVER NITRATE APPLICATOR 1 SWAB TP ONE
== END | disposition home or self-care (01) ==
LOC: WHH 10:27
PROVIDERS: ATTEND Podiatrist Foot & Ankle Surgery
DX: E11.622 Type 2 diabetes mellitus with other skin ulcer (principal); I70.233 Atherosclerosis of native arteries of right leg with ulceration of ankle; L97.311 Non-pressure chronic ulcer of right ankle limited to breakdown of skin; E11.621 Type 2 diabetes mellitus with foot ulcer; L97.411 Non-pressure chronic ulcer of right heel and midfoot limited to breakdown of skin; I70.202 Unspecified atherosclerosis of native arteries of extremities, left leg; B35.1 Tinea unguium; L60.2 Onychogryphosis; I25.10 Atherosclerotic heart disease of native coronary artery without angina pectoris; E11.51 Type 2 diabetes mellitus with diabetic peripheral angiopathy without gangrene; E11.22 Type 2 diabetes mellitus with diabetic chronic kidney disease; N18.4 Chronic kidney disease, stage 4 (severe); I50.32 Chronic diastolic (congestive) heart failure; J44.9 Chronic obstructive pulmonary disease, unspecified; M19.90 Unspecified osteoarthritis, unspecified site; M51.36 Other intervertebral disc degeneration, lumbar region; R60.0 Localized edema; Z86.73 Personal history of transient ischemic attack (TIA), and cerebral infarction without residual deficits; Z79.899 Other long term (current) drug therapy
CPT/HCPCS: 11042; A6209

== ENCOUNTER → 2023-03-20 | Outpatient (CLI) | payer OTHER ==
[~2023-03-20] MED LIST changes: -SILVER NITRATE APPLICATOR 1 SWAB TP ONE
== END | disposition home or self-care (01) ==
LOC: WHH 10:18
PROVIDERS: ATTEND Podiatrist Foot & Ankle Surgery
DX: E11.621 Type 2 diabetes mellitus with foot ulcer (principal); L97.522 Non-pressure chronic ulcer of other part of left foot with fat layer exposed; I70.202 Unspecified atherosclerosis of native arteries of extremities, left leg; B35.1 Tinea unguium; L60.2 Onychogryphosis; I25.10 Atherosclerotic heart disease of native coronary artery without angina pectoris; E11.51 Type 2 diabetes mellitus with diabetic peripheral angiopathy without gangrene; E11.22 Type 2 diabetes mellitus with diabetic chronic kidney disease; N18.4 Chronic kidney disease, stage 4 (severe); I50.32 Chronic diastolic (congestive) heart failure; J44.9 Chronic obstructive pulmonary disease, unspecified; E78.00 Pure hypercholesterolemia, unspecified; M19.90 Unspecified osteoarthritis, unspecified site; M51.36 Other intervertebral disc degeneration, lumbar region; R60.0 Localized edema; Z86.73 Personal history of transient ischemic attack (TIA), and cerebral infarction without residual deficits; Z79.899 Other long term (current) drug therapy
CPT/HCPCS: 11042; A6209; A4450

== ENCOUNTER → 2023-04-03 | Outpatient (CLI) | payer OTHER | END | disposition home or self-care (01) | LOC: WHH 10:03 | PROVIDERS: ATTEND Podiatrist Foot & Ankle Surgery | DX: E11.621 Type 2 diabetes mellitus with foot ulcer (principal); L97.522 Non-pressure chronic ulcer of other part of left foot with fat layer exposed; L97.422 Non-pressure chronic ulcer of left heel and midfoot with fat layer exposed; L84 Corns and callosities; I70.25 Atherosclerosis of native arteries of other extremities with ulceration; M20.12 Hallux valgus (acquired), left foot; I25.10 Atherosclerotic heart disease of native coronary artery without angina pectoris; E11.40 Type 2 diabetes mellitus with diabetic neuropathy, unspecified; E11.51 Type 2 diabetes mellitus with diabetic peripheral angiopathy without gangrene; E11.22 Type 2 diabetes mellitus with diabetic chronic kidney disease; N18.4 Chronic kidney disease, stage 4 (severe); I50.32 Chronic diastolic (congestive) heart failure; J44.9 Chronic obstructive pulmonary disease, unspecified; E78.00 Pure hypercholesterolemia, unspecified; M19.90 Unspecified osteoarthritis, unspecified site; M51.36 Other intervertebral disc degeneration, lumbar region; R60.0 Localized edema; Z86.73 Personal history of transient ischemic attack (TIA), and cerebral infarction without residual deficits; Z79.899 Other long term (current) drug therapy | CPT/HCPCS: 11042; A6209 ==

== ENCOUNTER → 2023-05-22 | Outpatient (CLI) | payer OTHER | END | disposition home or self-care (01) | LOC: WHH 10:03 | PROVIDERS: ATTEND Podiatrist Foot & Ankle Surgery | DX: E11.621 Type 2 diabetes mellitus with foot ulcer (principal); L97.522 Non-pressure chronic ulcer of other part of left foot with fat layer exposed; L84 Corns and callosities; I70.25 Atherosclerosis of native arteries of other extremities with ulceration; L98.491 Non-pressure chronic ulcer of skin of other sites limited to breakdown of skin; M20.12 Hallux valgus (acquired), left foot; I25.10 Atherosclerotic heart disease of native coronary artery without angina pectoris; E11.40 Type 2 diabetes mellitus with diabetic neuropathy, unspecified; E11.51 Type 2 diabetes mellitus with diabetic peripheral angiopathy without gangrene; E11.22 Type 2 diabetes mellitus with diabetic chronic kidney disease; I13.0 Hypertensive heart and chronic kidney disease with heart failure and stage 1 through stage 4 chronic kidney disease, or unspecified chronic kidney disease; N18.4 Chronic kidney disease, stage 4 (severe); I50.32 Chronic diastolic (congestive) heart failure; J44.9 Chronic obstructive pulmonary disease, unspecified; R60.0 Localized edema; E78.00 Pure hypercholesterolemia, unspecified; M19.90 Unspecified osteoarthritis, unspecified site; M51.36 Other intervertebral disc degeneration, lumbar region; Z86.73 Personal history of transient ischemic attack (TIA), and cerebral infarction without residual deficits; Z79.899 Other long term (current) drug therapy | CPT/HCPCS: 97597; A6209; A4450 ==

== ENCOUNTER → 2023-06-26 | Outpatient (CLI) | payer OTHER | END | disposition home or self-care (01) | LOC: WHH 10:56 | PROVIDERS: ATTEND Podiatrist Foot & Ankle Surgery | DX: E11.621 Type 2 diabetes mellitus with foot ulcer (principal); L97.522 Non-pressure chronic ulcer of other part of left foot with fat layer exposed; L84 Corns and callosities; I70.25 Atherosclerosis of native arteries of other extremities with ulceration; L98.491 Non-pressure chronic ulcer of skin of other sites limited to breakdown of skin; M20.12 Hallux valgus (acquired), left foot; E11.40 Type 2 diabetes mellitus with diabetic neuropathy, unspecified; E11.51 Type 2 diabetes mellitus with diabetic peripheral angiopathy without gangrene; E11.22 Type 2 diabetes mellitus with diabetic chronic kidney disease; I13.0 Hypertensive heart and chronic kidney disease with heart failure and stage 1 through stage 4 chronic kidney disease, or unspecified chronic kidney disease; N18.4 Chronic kidney disease, stage 4 (severe); I50.32 Chronic diastolic (congestive) heart failure; J44.9 Chronic obstructive pulmonary disease, unspecified; R60.0 Localized edema; I25.10 Atherosclerotic heart disease of native coronary artery without angina pectoris; E78.00 Pure hypercholesterolemia, unspecified; M19.90 Unspecified osteoarthritis, unspecified site; M51.36 Other intervertebral disc degeneration, lumbar region; Z86.73 Personal history of transient ischemic attack (TIA), and cerebral infarction without residual deficits; Z79.899 Other long term (current) drug therapy | CPT/HCPCS: 11042; A6209; A4450 ==

== ENCOUNTER → 2023-08-07 | Outpatient (CLI) | payer OTHER ==
[~2023-08-07] MED LIST changes: +LIDOCAINE HCL 4% LTA SOL 4 ML VIAL TP ONE
== END | disposition home or self-care (01) ==
LOC: WHH 10:13
PROVIDERS: ATTEND Podiatrist Foot & Ankle Surgery
DX: E11.621 Type 2 diabetes mellitus with foot ulcer (principal); L97.522 Non-pressure chronic ulcer of other part of left foot with fat layer exposed; L84 Corns and callosities; I70.25 Atherosclerosis of native arteries of other extremities with ulceration; L98.491 Non-pressure chronic ulcer of skin of other sites limited to breakdown of skin; M20.12 Hallux valgus (acquired), left foot; E11.40 Type 2 diabetes mellitus with diabetic neuropathy, unspecified; E11.51 Type 2 diabetes mellitus with diabetic peripheral angiopathy without gangrene; E11.22 Type 2 diabetes mellitus with diabetic chronic kidney disease; I13.0 Hypertensive heart and chronic kidney disease with heart failure and stage 1 through stage 4 chronic kidney disease, or unspecified chronic kidney disease; N18.4 Chronic kidney disease, stage 4 (severe); I50.32 Chronic diastolic (congestive) heart failure; J44.9 Chronic obstructive pulmonary disease, unspecified; R60.0 Localized edema; I25.10 Atherosclerotic heart disease of native coronary artery without angina pectoris; E78.00 Pure hypercholesterolemia, unspecified; M19.90 Unspecified osteoarthritis, unspecified site; M51.36 Other intervertebral disc degeneration, lumbar region; Z86.73 Personal history of transient ischemic attack (TIA), and cerebral infarction without residual deficits; Z79.899 Other long term (current) drug therapy
CPT/HCPCS: 11042; 11721; A6209; A4450

== ENCOUNTER → 2023-08-28 | Outpatient (CLI) | payer OTHER ==
[~2023-08-28] MED LIST changes: -LIDOCAINE HCL 4% LTA SOL 4 ML VIAL TP ONE
== END | disposition home or self-care (01) ==
LOC: WHH 10:27
PROVIDERS: ATTEND Podiatrist Foot & Ankle Surgery
DX: E11.621 Type 2 diabetes mellitus with foot ulcer (principal); L97.526 Non-pressure chronic ulcer of other part of left foot with bone involvement without evidence of necrosis; L97.422 Non-pressure chronic ulcer of left heel and midfoot with fat layer exposed; L84 Corns and callosities; I70.25 Atherosclerosis of native arteries of other extremities with ulceration; L98.491 Non-pressure chronic ulcer of skin of other sites limited to breakdown of skin; M20.12 Hallux valgus (acquired), left foot; E11.40 Type 2 diabetes mellitus with diabetic neuropathy, unspecified; E11.51 Type 2 diabetes mellitus with diabetic peripheral angiopathy without gangrene; E11.22 Type 2 diabetes mellitus with diabetic chronic kidney disease; I13.0 Hypertensive heart and chronic kidney disease with heart failure and stage 1 through stage 4 chronic kidney disease, or unspecified chronic kidney disease; N18.4 Chronic kidney disease, stage 4 (severe); I50.32 Chronic diastolic (congestive) heart failure; J44.9 Chronic obstructive pulmonary disease, unspecified; R60.0 Localized edema; I25.10 Atherosclerotic heart disease of native coronary artery without angina pectoris; E78.00 Pure hypercholesterolemia, unspecified; M19.90 Unspecified osteoarthritis, unspecified site; M51.36 Other intervertebral disc degeneration, lumbar region; Z86.73 Personal history of transient ischemic attack (TIA), and cerebral infarction without residual deficits; Z79.899 Other long term (current) drug therapy
CPT/HCPCS: 11044; A6209; A4450

== ENCOUNTER → 2023-09-11 | Outpatient (CLI) | payer OTHER | END | disposition home or self-care (01) | LOC: WHH 09:36 | PROVIDERS: ATTEND Podiatrist Foot & Ankle Surgery | DX: E11.621 Type 2 diabetes mellitus with foot ulcer (principal); L97.526 Non-pressure chronic ulcer of other part of left foot with bone involvement without evidence of necrosis; L97.422 Non-pressure chronic ulcer of left heel and midfoot with fat layer exposed; L84 Corns and callosities; I70.25 Atherosclerosis of native arteries of other extremities with ulceration; L98.491 Non-pressure chronic ulcer of skin of other sites limited to breakdown of skin; M20.12 Hallux valgus (acquired), left foot; E11.40 Type 2 diabetes mellitus with diabetic neuropathy, unspecified; E11.51 Type 2 diabetes mellitus with diabetic peripheral angiopathy without gangrene; E11.22 Type 2 diabetes mellitus with diabetic chronic kidney disease; I13.0 Hypertensive heart and chronic kidney disease with heart failure and stage 1 through stage 4 chronic kidney disease, or unspecified chronic kidney disease; N18.4 Chronic kidney disease, stage 4 (severe); I50.32 Chronic diastolic (congestive) heart failure; J44.9 Chronic obstructive pulmonary disease, unspecified; R60.0 Localized edema; I25.10 Atherosclerotic heart disease of native coronary artery without angina pectoris; E78.00 Pure hypercholesterolemia, unspecified; M19.90 Unspecified osteoarthritis, unspecified site; M51.36 Other intervertebral disc degeneration, lumbar region; Z86.73 Personal history of transient ischemic attack (TIA), and cerebral infarction without residual deficits; Z79.899 Other long term (current) drug therapy | CPT/HCPCS: 11042; A6209 ==

== ENCOUNTER → 2023-09-25 | Outpatient (CLI) | payer OTHER | END | disposition home or self-care (01) | LOC: WHH 08:57 | PROVIDERS: ATTEND Podiatrist Foot & Ankle Surgery | DX: E11.621 Type 2 diabetes mellitus with foot ulcer (principal); L97.526 Non-pressure chronic ulcer of other part of left foot with bone involvement without evidence of necrosis; L97.422 Non-pressure chronic ulcer of left heel and midfoot with fat layer exposed; L84 Corns and callosities; I70.25 Atherosclerosis of native arteries of other extremities with ulceration; L98.491 Non-pressure chronic ulcer of skin of other sites limited to breakdown of skin; M20.12 Hallux valgus (acquired), left foot; E11.40 Type 2 diabetes mellitus with diabetic neuropathy, unspecified; E11.51 Type 2 diabetes mellitus with diabetic peripheral angiopathy without gangrene; E11.22 Type 2 diabetes mellitus with diabetic chronic kidney disease; I13.0 Hypertensive heart and chronic kidney disease with heart failure and stage 1 through stage 4 chronic kidney disease, or unspecified chronic kidney disease; N18.4 Chronic kidney disease, stage 4 (severe); I50.32 Chronic diastolic (congestive) heart failure; J44.9 Chronic obstructive pulmonary disease, unspecified; R60.0 Localized edema; I25.10 Atherosclerotic heart disease of native coronary artery without angina pectoris; E78.00 Pure hypercholesterolemia, unspecified; M19.90 Unspecified osteoarthritis, unspecified site; M51.36 Other intervertebral disc degeneration, lumbar region; Z86.73 Personal history of transient ischemic attack (TIA), and cerebral infarction without residual deficits; Z79.899 Other long term (current) drug therapy | CPT/HCPCS: G0463; A6209; A6260 ==

== ENCOUNTER → 2023-10-09 | Outpatient (CLI) | payer OTHER | END | disposition home or self-care (01) | LOC: WHH 10:35 | PROVIDERS: ATTEND Podiatrist Foot & Ankle Surgery | DX: E11.621 Type 2 diabetes mellitus with foot ulcer (principal); L97.522 Non-pressure chronic ulcer of other part of left foot with fat layer exposed; S80.812A Abrasion, left lower leg, initial encounter; L97.422 Non-pressure chronic ulcer of left heel and midfoot with fat layer exposed; L84 Corns and callosities; I70.25 Atherosclerosis of native arteries of other extremities with ulceration; L98.491 Non-pressure chronic ulcer of skin of other sites limited to breakdown of skin; M20.12 Hallux valgus (acquired), left foot; E11.40 Type 2 diabetes mellitus with diabetic neuropathy, unspecified; E11.51 Type 2 diabetes mellitus with diabetic peripheral angiopathy without gangrene; E11.22 Type 2 diabetes mellitus with diabetic chronic kidney disease; I13.0 Hypertensive heart and chronic kidney disease with heart failure and stage 1 through stage 4 chronic kidney disease, or unspecified chronic kidney disease; N18.31 Chronic kidney disease, stage 3a; I50.32 Chronic diastolic (congestive) heart failure; J44.9 Chronic obstructive pulmonary disease, unspecified; R60.0 Localized edema; I25.10 Atherosclerotic heart disease of native coronary artery without angina pectoris; E78.00 Pure hypercholesterolemia, unspecified; M19.90 Unspecified osteoarthritis, unspecified site; M51.36 Other intervertebral disc degeneration, lumbar region; Z86.73 Personal history of transient ischemic attack (TIA), and cerebral infarction without residual deficits; Z79.899 Other long term (current) drug therapy; X58.XXXA Exposure to other specified factors, initial encounter; Y93.89 Activity, other specified; Y92.89 Other specified places as the place of occurrence of the external cause; Y99.8 Other external cause status | CPT/HCPCS: 11042; A6209; A4450 ==

== ENCOUNTER → 2023-10-30 | Outpatient (CLI) | payer OTHER | END | disposition home or self-care (01) | LOC: WHH 10:12 | PROVIDERS: ATTEND Podiatrist Foot & Ankle Surgery | DX: E11.621 Type 2 diabetes mellitus with foot ulcer (principal); L97.522 Non-pressure chronic ulcer of other part of left foot with fat layer exposed; S80.812D Abrasion, left lower leg, subsequent encounter; L97.422 Non-pressure chronic ulcer of left heel and midfoot with fat layer exposed; L84 Corns and callosities; I70.25 Atherosclerosis of native arteries of other extremities with ulceration; L98.491 Non-pressure chronic ulcer of skin of other sites limited to breakdown of skin; E11.40 Type 2 diabetes mellitus with diabetic neuropathy, unspecified; E11.51 Type 2 diabetes mellitus with diabetic peripheral angiopathy without gangrene; E11.22 Type 2 diabetes mellitus with diabetic chronic kidney disease; I13.0 Hypertensive heart and chronic kidney disease with heart failure and stage 1 through stage 4 chronic kidney disease, or unspecified chronic kidney disease; N18.31 Chronic kidney disease, stage 3a; I50.32 Chronic diastolic (congestive) heart failure; J44.9 Chronic obstructive pulmonary disease, unspecified; R60.0 Localized edema; I25.10 Atherosclerotic heart disease of native coronary artery without angina pectoris; E78.00 Pure hypercholesterolemia, unspecified; M19.90 Unspecified osteoarthritis, unspecified site; M20.12 Hallux valgus (acquired), left foot; M51.36 Other intervertebral disc degeneration, lumbar region; Z86.73 Personal history of transient ischemic attack (TIA), and cerebral infarction without residual deficits; Z79.899 Other long term (current) drug therapy; X58.XXXD Exposure to other specified factors, subsequent encounter | CPT/HCPCS: 11042; A6209; A4450 ==

== ENCOUNTER → 2023-11-20 | Outpatient (CLI) | payer OTHER ==
[~2023-11-20] MED LIST changes: +LIDOCAINE HCL 4% LTA SOL 4 ML VIAL TP ONE
== END | disposition home or self-care (01) ==
LOC: WHH 08:06
PROVIDERS: ATTEND Podiatrist Foot & Ankle Surgery
DX: E11.621 Type 2 diabetes mellitus with foot ulcer (principal); L97.522 Non-pressure chronic ulcer of other part of left foot with fat layer exposed; L97.422 Non-pressure chronic ulcer of left heel and midfoot with fat layer exposed; L84 Corns and callosities; I70.25 Atherosclerosis of native arteries of other extremities with ulceration; L98.491 Non-pressure chronic ulcer of skin of other sites limited to breakdown of skin; E11.40 Type 2 diabetes mellitus with diabetic neuropathy, unspecified; E11.51 Type 2 diabetes mellitus with diabetic peripheral angiopathy without gangrene; E11.22 Type 2 diabetes mellitus with diabetic chronic kidney disease; I13.0 Hypertensive heart and chronic kidney disease with heart failure and stage 1 through stage 4 chronic kidney disease, or unspecified chronic kidney disease; N18.31 Chronic kidney disease, stage 3a; I50.32 Chronic diastolic (congestive) heart failure; J44.9 Chronic obstructive pulmonary disease, unspecified; R60.0 Localized edema; I25.10 Atherosclerotic heart disease of native coronary artery without angina pectoris; E78.00 Pure hypercholesterolemia, unspecified; M19.90 Unspecified osteoarthritis, unspecified site; M20.12 Hallux valgus (acquired), left foot; M51.36 Other intervertebral disc degeneration, lumbar region; Z86.73 Personal history of transient ischemic attack (TIA), and cerebral infarction without residual deficits; Z79.899 Other long term (current) drug therapy
CPT/HCPCS: 11042; 11721; A6209; A4450

== ENCOUNTER → 2024-01-08 | Outpatient (CLI) | payer OTHER ==
[~2024-01-08] MED LIST changes: -LIDOCAINE HCL 4% LTA SOL 4 ML VIAL TP ONE
== END | disposition home or self-care (01) ==
LOC: WHH 08:47
PROVIDERS: ATTEND Podiatrist Foot & Ankle Surgery
DX: E11.621 Type 2 diabetes mellitus with foot ulcer (principal); L97.522 Non-pressure chronic ulcer of other part of left foot with fat layer exposed; L84 Corns and callosities; I70.25 Atherosclerosis of native arteries of other extremities with ulceration; L98.491 Non-pressure chronic ulcer of skin of other sites limited to breakdown of skin; E11.40 Type 2 diabetes mellitus with diabetic neuropathy, unspecified; E11.22 Type 2 diabetes mellitus with diabetic chronic kidney disease; E11.51 Type 2 diabetes mellitus with diabetic peripheral angiopathy without gangrene; I13.0 Hypertensive heart and chronic kidney disease with heart failure and stage 1 through stage 4 chronic kidney disease, or unspecified chronic kidney disease; N18.31 Chronic kidney disease, stage 3a; I50.32 Chronic diastolic (congestive) heart failure; J44.9 Chronic obstructive pulmonary disease, unspecified; R60.0 Localized edema; I25.10 Atherosclerotic heart disease of native coronary artery without angina pectoris; E78.00 Pure hypercholesterolemia, unspecified; M19.90 Unspecified osteoarthritis, unspecified site; M20.12 Hallux valgus (acquired), left foot; M51.36 Other intervertebral disc degeneration, lumbar region; Z86.73 Personal history of transient ischemic attack (TIA), and cerebral infarction without residual deficits; Z79.899 Other long term (current) drug therapy
CPT/HCPCS: 11042; A6209; A4450

== ENCOUNTER → 2024-02-05 | Outpatient (CLI) | payer OTHER | END | disposition home or self-care (01) | LOC: WHH 08:56 | PROVIDERS: ATTEND Podiatrist Foot & Ankle Surgery | DX: E11.621 Type 2 diabetes mellitus with foot ulcer (principal); L97.522 Non-pressure chronic ulcer of other part of left foot with fat layer exposed; L84 Corns and callosities; I70.25 Atherosclerosis of native arteries of other extremities with ulceration; L98.491 Non-pressure chronic ulcer of skin of other sites limited to breakdown of skin; E11.40 Type 2 diabetes mellitus with diabetic neuropathy, unspecified; E11.22 Type 2 diabetes mellitus with diabetic chronic kidney disease; E11.51 Type 2 diabetes mellitus with diabetic peripheral angiopathy without gangrene; I13.0 Hypertensive heart and chronic kidney disease with heart failure and stage 1 through stage 4 chronic kidney disease, or unspecified chronic kidney disease; N18.31 Chronic kidney disease, stage 3a; I50.32 Chronic diastolic (congestive) heart failure; J44.9 Chronic obstructive pulmonary disease, unspecified; R60.0 Localized edema; I25.10 Atherosclerotic heart disease of native coronary artery without angina pectoris; E78.00 Pure hypercholesterolemia, unspecified; M19.90 Unspecified osteoarthritis, unspecified site; M20.12 Hallux valgus (acquired), left foot; Z86.73 Personal history of transient ischemic attack (TIA), and cerebral infarction without residual deficits; Z79.899 Other long term (current) drug therapy | CPT/HCPCS: 11042; A6196; A4450 ==

== ENCOUNTER → 2024-03-04 | Outpatient (CLI) | payer OTHER | END | disposition home or self-care (01) | LOC: WHH 08:57 | PROVIDERS: ATTEND Podiatrist Foot & Ankle Surgery | DX: E11.621 Type 2 diabetes mellitus with foot ulcer (principal); L97.522 Non-pressure chronic ulcer of other part of left foot with fat layer exposed; L84 Corns and callosities; L03.116 Cellulitis of left lower limb; I70.25 Atherosclerosis of native arteries of other extremities with ulceration; L98.491 Non-pressure chronic ulcer of skin of other sites limited to breakdown of skin; E11.51 Type 2 diabetes mellitus with diabetic peripheral angiopathy without gangrene; E11.40 Type 2 diabetes mellitus with diabetic neuropathy, unspecified; E11.22 Type 2 diabetes mellitus with diabetic chronic kidney disease; I13.0 Hypertensive heart and chronic kidney disease with heart failure and stage 1 through stage 4 chronic kidney disease, or unspecified chronic kidney disease; N18.31 Chronic kidney disease, stage 3a; I50.32 Chronic diastolic (congestive) heart failure; J44.9 Chronic obstructive pulmonary disease, unspecified; R60.0 Localized edema; I25.10 Atherosclerotic heart disease of native coronary artery without angina pectoris; E78.00 Pure hypercholesterolemia, unspecified; M19.079 Primary osteoarthritis, unspecified ankle and foot; Z86.73 Personal history of transient ischemic attack (TIA), and cerebral infarction without residual deficits; Z79.899 Other long term (current) drug therapy | CPT/HCPCS: 11043; 87086 ×2; 87186 ×2; 87070; A6197 ×2; A4450; A6260 ==

== ENCOUNTER → 2024-03-11 | Outpatient (CLI) | payer OTHER | END | disposition home or self-care (01) | LOC: WHH 09:15 | PROVIDERS: ATTEND Podiatrist Foot & Ankle Surgery | DX: E11.621 Type 2 diabetes mellitus with foot ulcer (principal); L97.522 Non-pressure chronic ulcer of other part of left foot with fat layer exposed; L84 Corns and callosities; L03.116 Cellulitis of left lower limb; I70.25 Atherosclerosis of native arteries of other extremities with ulceration; L98.491 Non-pressure chronic ulcer of skin of other sites limited to breakdown of skin; E11.51 Type 2 diabetes mellitus with diabetic peripheral angiopathy without gangrene; E11.40 Type 2 diabetes mellitus with diabetic neuropathy, unspecified; E11.22 Type 2 diabetes mellitus with diabetic chronic kidney disease; I13.0 Hypertensive heart and chronic kidney disease with heart failure and stage 1 through stage 4 chronic kidney disease, or unspecified chronic kidney disease; N18.31 Chronic kidney disease, stage 3a; I50.32 Chronic diastolic (congestive) heart failure; J44.9 Chronic obstructive pulmonary disease, unspecified; R60.0 Localized edema; I25.10 Atherosclerotic heart disease of native coronary artery without angina pectoris; E78.00 Pure hypercholesterolemia, unspecified; M19.079 Primary osteoarthritis, unspecified ankle and foot; Z86.73 Personal history of transient ischemic attack (TIA), and cerebral infarction without residual deficits; Z79.899 Other long term (current) drug therapy | CPT/HCPCS: G0463; A6197 ×2 ==

== ENCOUNTER → 2024-03-18 | Outpatient (CLI) | payer OTHER | END | disposition home or self-care (01) | LOC: WHH 09:05 | PROVIDERS: ATTEND Podiatrist Foot & Ankle Surgery | DX: E11.621 Type 2 diabetes mellitus with foot ulcer (principal); L97.522 Non-pressure chronic ulcer of other part of left foot with fat layer exposed; L84 Corns and callosities; I70.25 Atherosclerosis of native arteries of other extremities with ulceration; L98.491 Non-pressure chronic ulcer of skin of other sites limited to breakdown of skin; E11.51 Type 2 diabetes mellitus with diabetic peripheral angiopathy without gangrene; E11.40 Type 2 diabetes mellitus with diabetic neuropathy, unspecified; E11.22 Type 2 diabetes mellitus with diabetic chronic kidney disease; I13.0 Hypertensive heart and chronic kidney disease with heart failure and stage 1 through stage 4 chronic kidney disease, or unspecified chronic kidney disease; N18.31 Chronic kidney disease, stage 3a; I50.32 Chronic diastolic (congestive) heart failure; E11.69 Type 2 diabetes mellitus with other specified complication; M86.8X7 Other osteomyelitis, ankle and foot; J44.9 Chronic obstructive pulmonary disease, unspecified; R60.0 Localized edema; I25.10 Atherosclerotic heart disease of native coronary artery without angina pectoris; E78.00 Pure hypercholesterolemia, unspecified; M19.079 Primary osteoarthritis, unspecified ankle and foot; Z86.73 Personal history of transient ischemic attack (TIA), and cerebral infarction without residual deficits; Z79.899 Other long term (current) drug therapy; L59.8 Other specified disorders of the skin and subcutaneous tissue related to radiation | CPT/HCPCS: G0463; A6197; A4450 ==

== ENCOUNTER → 2024-04-22 | Outpatient (CLI) | payer OTHER | END | disposition home or self-care (01) | LOC: WHH 08:28 | PROVIDERS: ATTEND Podiatrist Foot & Ankle Surgery | DX: T87.89 Other complications of amputation stump (principal); E11.621 Type 2 diabetes mellitus with foot ulcer; L97.526 Non-pressure chronic ulcer of other part of left foot with bone involvement without evidence of necrosis; L84 Corns and callosities; L03.116 Cellulitis of left lower limb; I70.25 Atherosclerosis of native arteries of other extremities with ulceration; L98.491 Non-pressure chronic ulcer of skin of other sites limited to breakdown of skin; E11.69 Type 2 diabetes mellitus with other specified complication; M86.172 Other acute osteomyelitis, left ankle and foot; E11.52 Type 2 diabetes mellitus with diabetic peripheral angiopathy with gangrene; I96 Gangrene, not elsewhere classified; E11.42 Type 2 diabetes mellitus with diabetic polyneuropathy; E11.22 Type 2 diabetes mellitus with diabetic chronic kidney disease; I13.0 Hypertensive heart and chronic kidney disease with heart failure and stage 1 through stage 4 chronic kidney disease, or unspecified chronic kidney disease; N18.31 Chronic kidney disease, stage 3a; I50.32 Chronic diastolic (congestive) heart failure; J44.9 Chronic obstructive pulmonary disease, unspecified; H54.62 Unqualified visual loss, left eye, normal vision right eye; R60.0 Localized edema; I25.10 Atherosclerotic heart disease of native coronary artery without angina pectoris; E78.00 Pure hypercholesterolemia, unspecified; M19.079 Primary osteoarthritis, unspecified ankle and foot; E66.01 Morbid (severe) obesity due to excess calories; Z68.35 Body mass index [BMI] 35.0-35.9, adult; Z86.73 Personal history of transient ischemic attack (TIA), and cerebral infarction without residual deficits; Z79.899 Other long term (current) drug therapy; Y83.5 Amputation of limb(s) as the cause of abnormal reaction of the patient, or of later complication, without mention of misadventure at the time of the procedure | CPT/HCPCS: G0463; A6209; A4450 ==

== ENCOUNTER → 2024-05-13 | Outpatient (CLI) | payer OTHER | END | disposition home or self-care (01) | LOC: WHH 08:39 | PROVIDERS: ATTEND Podiatrist Foot & Ankle Surgery | DX: T87.89 Other complications of amputation stump (principal); E11.621 Type 2 diabetes mellitus with foot ulcer; L97.526 Non-pressure chronic ulcer of other part of left foot with bone involvement without evidence of necrosis; L84 Corns and callosities; L03.116 Cellulitis of left lower limb; I70.25 Atherosclerosis of native arteries of other extremities with ulceration; L97.801 Non-pressure chronic ulcer of other part of unspecified lower leg limited to breakdown of skin; E11.69 Type 2 diabetes mellitus with other specified complication; M86.172 Other acute osteomyelitis, left ankle and foot; E11.52 Type 2 diabetes mellitus with diabetic peripheral angiopathy with gangrene; I96 Gangrene, not elsewhere classified; E11.42 Type 2 diabetes mellitus with diabetic polyneuropathy; E11.610 Type 2 diabetes mellitus with diabetic neuropathic arthropathy; E11.22 Type 2 diabetes mellitus with diabetic chronic kidney disease; I13.0 Hypertensive heart and chronic kidney disease with heart failure and stage 1 through stage 4 chronic kidney disease, or unspecified chronic kidney disease; N18.31 Chronic kidney disease, stage 3a; I50.32 Chronic diastolic (congestive) heart failure; J44.9 Chronic obstructive pulmonary disease, unspecified; H54.62 Unqualified visual loss, left eye, normal vision right eye; R60.0 Localized edema; I25.10 Atherosclerotic heart disease of native coronary artery without angina pectoris; E78.00 Pure hypercholesterolemia, unspecified; M19.079 Primary osteoarthritis, unspecified ankle and foot; E66.01 Morbid (severe) obesity due to excess calories; Z68.35 Body mass index [BMI] 35.0-35.9, adult; Z86.73 Personal history of transient ischemic attack (TIA), and cerebral infarction without residual deficits; Z79.899 Other long term (current) drug therapy; Y83.5 Amputation of limb(s) as the cause of abnormal reaction of the patient, or of later complication, without mention of misadventure at the time of the procedure | CPT/HCPCS: 11042; A6209 ==

== ENCOUNTER → 2024-05-27 | Outpatient (CLI) | payer OTHER ==
[~2024-05-27] MED LIST changes: +SILVER NITRATE APPLICATOR 1 SWAB TP ONE
== END | disposition home or self-care (01) ==
LOC: WHH 08:17
PROVIDERS: ATTEND Podiatrist Foot & Ankle Surgery
DX: T87.89 Other complications of amputation stump (principal); E11.621 Type 2 diabetes mellitus with foot ulcer; L97.526 Non-pressure chronic ulcer of other part of left foot with bone involvement without evidence of necrosis; L84 Corns and callosities; L03.116 Cellulitis of left lower limb; I70.25 Atherosclerosis of native arteries of other extremities with ulceration; L98.491 Non-pressure chronic ulcer of skin of other sites limited to breakdown of skin; E11.69 Type 2 diabetes mellitus with other specified complication; M86.172 Other acute osteomyelitis, left ankle and foot; E11.52 Type 2 diabetes mellitus with diabetic peripheral angiopathy with gangrene; I96 Gangrene, not elsewhere classified; E11.42 Type 2 diabetes mellitus with diabetic polyneuropathy; E11.610 Type 2 diabetes mellitus with diabetic neuropathic arthropathy; E11.22 Type 2 diabetes mellitus with diabetic chronic kidney disease; I13.0 Hypertensive heart and chronic kidney disease with heart failure and stage 1 through stage 4 chronic kidney disease, or unspecified chronic kidney disease; N18.31 Chronic kidney disease, stage 3a; I50.32 Chronic diastolic (congestive) heart failure; J44.9 Chronic obstructive pulmonary disease, unspecified; H54.62 Unqualified visual loss, left eye, normal vision right eye; R60.0 Localized edema; I25.10 Atherosclerotic heart disease of native coronary artery without angina pectoris; E78.00 Pure hypercholesterolemia, unspecified; E66.01 Morbid (severe) obesity due to excess calories; M19.079 Primary osteoarthritis, unspecified ankle and foot; Z68.35 Body mass index [BMI] 35.0-35.9, adult; Z86.73 Personal history of transient ischemic attack (TIA), and cerebral infarction without residual deficits; Z79.899 Other long term (current) drug therapy; Y83.5 Amputation of limb(s) as the cause of abnormal reaction of the patient, or of later complication, without mention of misadventure at the time of the procedure
CPT/HCPCS: 17250; A6209; A4450

== ENCOUNTER → 2024-07-15 | Outpatient (CLI) | payer OTHER ==
[~2024-07-15] MED LIST changes: -SILVER NITRATE APPLICATOR 1 SWAB TP ONE
== END | disposition home or self-care (01) ==
LOC: WHH 08:47
PROVIDERS: ATTEND Podiatrist Foot & Ankle Surgery
DX: T87.89 Other complications of amputation stump (principal); E11.621 Type 2 diabetes mellitus with foot ulcer; L97.522 Non-pressure chronic ulcer of other part of left foot with fat layer exposed; E11.622 Type 2 diabetes mellitus with other skin ulcer; L97.311 Non-pressure chronic ulcer of right ankle limited to breakdown of skin; I70.25 Atherosclerosis of native arteries of other extremities with ulceration; L98.491 Non-pressure chronic ulcer of skin of other sites limited to breakdown of skin; L84 Corns and callosities; E11.69 Type 2 diabetes mellitus with other specified complication; M86.172 Other acute osteomyelitis, left ankle and foot; E11.52 Type 2 diabetes mellitus with diabetic peripheral angiopathy with gangrene; I96 Gangrene, not elsewhere classified; E11.42 Type 2 diabetes mellitus with diabetic polyneuropathy; E11.610 Type 2 diabetes mellitus with diabetic neuropathic arthropathy; E11.22 Type 2 diabetes mellitus with diabetic chronic kidney disease; I13.0 Hypertensive heart and chronic kidney disease with heart failure and stage 1 through stage 4 chronic kidney disease, or unspecified chronic kidney disease; N18.31 Chronic kidney disease, stage 3a; I50.32 Chronic diastolic (congestive) heart failure; J44.9 Chronic obstructive pulmonary disease, unspecified; H54.62 Unqualified visual loss, left eye, normal vision right eye; R60.0 Localized edema; I25.10 Atherosclerotic heart disease of native coronary artery without angina pectoris; E78.00 Pure hypercholesterolemia, unspecified; E66.01 Morbid (severe) obesity due to excess calories; M19.079 Primary osteoarthritis, unspecified ankle and foot; Z68.35 Body mass index [BMI] 35.0-35.9, adult; Z86.73 Personal history of transient ischemic attack (TIA), and cerebral infarction without residual deficits; Z79.899 Other long term (current) drug therapy; Y83.5 Amputation of limb(s) as the cause of abnormal reaction of the patient, or of later complication, without mention of misadventure at the time of the procedure
CPT/HCPCS: G0463

== ENCOUNTER → 2024-12-30 | Outpatient (CLI) | payer OTHER | END | disposition home or self-care (01) | LOC: WHH 07:53 | PROVIDERS: ATTEND Podiatrist Foot & Ankle Surgery | DX: T87.89 Other complications of amputation stump (principal); E11.621 Type 2 diabetes mellitus with foot ulcer; L97.522 Non-pressure chronic ulcer of other part of left foot with fat layer exposed; L84 Corns and callosities; E11.69 Type 2 diabetes mellitus with other specified complication; M86.172 Other acute osteomyelitis, left ankle and foot; E11.52 Type 2 diabetes mellitus with diabetic peripheral angiopathy with gangrene; I96 Gangrene, not elsewhere classified; E11.42 Type 2 diabetes mellitus with diabetic polyneuropathy; E11.610 Type 2 diabetes mellitus with diabetic neuropathic arthropathy; E11.22 Type 2 diabetes mellitus with diabetic chronic kidney disease; I13.0 Hypertensive heart and chronic kidney disease with heart failure and stage 1 through stage 4 chronic kidney disease, or unspecified chronic kidney disease; N18.31 Chronic kidney disease, stage 3a; J44.9 Chronic obstructive pulmonary disease, unspecified; I50.32 Chronic diastolic (congestive) heart failure; H54.62 Unqualified visual loss, left eye, normal vision right eye; R60.0 Localized edema; E78.00 Pure hypercholesterolemia, unspecified; I25.10 Atherosclerotic heart disease of native coronary artery without angina pectoris; E66.01 Morbid (severe) obesity due to excess calories; M19.079 Primary osteoarthritis, unspecified ankle and foot; Z68.35 Body mass index [BMI] 35.0-35.9, adult; Z86.73 Personal history of transient ischemic attack (TIA), and cerebral infarction without residual deficits; Z79.899 Other long term (current) drug therapy; Y83.5 Amputation of limb(s) as the cause of abnormal reaction of the patient, or of later complication, without mention of misadventure at the time of the procedure | CPT/HCPCS: 11042; A6209; A4450 ==

== ENCOUNTER → 2025-01-13 | Outpatient (CLI) | payer OTHER | END | disposition home or self-care (01) | LOC: WHH 08:20 | PROVIDERS: ATTEND Podiatrist Foot & Ankle Surgery | DX: T87.89 Other complications of amputation stump (principal); E11.621 Type 2 diabetes mellitus with foot ulcer; L97.522 Non-pressure chronic ulcer of other part of left foot with fat layer exposed; L84 Corns and callosities; E11.69 Type 2 diabetes mellitus with other specified complication; M86.172 Other acute osteomyelitis, left ankle and foot; E11.52 Type 2 diabetes mellitus with diabetic peripheral angiopathy with gangrene; I96 Gangrene, not elsewhere classified; E11.42 Type 2 diabetes mellitus with diabetic polyneuropathy; E11.610 Type 2 diabetes mellitus with diabetic neuropathic arthropathy; E11.22 Type 2 diabetes mellitus with diabetic chronic kidney disease; I13.0 Hypertensive heart and chronic kidney disease with heart failure and stage 1 through stage 4 chronic kidney disease, or unspecified chronic kidney disease; N18.31 Chronic kidney disease, stage 3a; I50.32 Chronic diastolic (congestive) heart failure; J44.9 Chronic obstructive pulmonary disease, unspecified; H54.62 Unqualified visual loss, left eye, normal vision right eye; R60.0 Localized edema; E78.00 Pure hypercholesterolemia, unspecified; I25.10 Atherosclerotic heart disease of native coronary artery without angina pectoris; E66.01 Morbid (severe) obesity due to excess calories; M19.079 Primary osteoarthritis, unspecified ankle and foot; Z68.36 Body mass index [BMI] 36.0-36.9, adult; Z86.73 Personal history of transient ischemic attack (TIA), and cerebral infarction without residual deficits; Z79.899 Other long term (current) drug therapy; Y83.5 Amputation of limb(s) as the cause of abnormal reaction of the patient, or of later complication, without mention of misadventure at the time of the procedure | CPT/HCPCS: 11042; A6209; A4450 ==

== ENCOUNTER → 2025-01-27 | Outpatient (CLI) | payer OTHER | END | disposition home or self-care (01) | LOC: WHH 08:14 | PROVIDERS: ATTEND Podiatrist Foot & Ankle Surgery | DX: E11.621 Type 2 diabetes mellitus with foot ulcer (principal); L97.521 Non-pressure chronic ulcer of other part of left foot limited to breakdown of skin; L84 Corns and callosities; E11.69 Type 2 diabetes mellitus with other specified complication; M86.172 Other acute osteomyelitis, left ankle and foot; E11.52 Type 2 diabetes mellitus with diabetic peripheral angiopathy with gangrene; I96 Gangrene, not elsewhere classified; E11.42 Type 2 diabetes mellitus with diabetic polyneuropathy; E11.610 Type 2 diabetes mellitus with diabetic neuropathic arthropathy; E11.22 Type 2 diabetes mellitus with diabetic chronic kidney disease; I13.0 Hypertensive heart and chronic kidney disease with heart failure and stage 1 through stage 4 chronic kidney disease, or unspecified chronic kidney disease; N18.31 Chronic kidney disease, stage 3a; I50.32 Chronic diastolic (congestive) heart failure; J44.9 Chronic obstructive pulmonary disease, unspecified; H54.62 Unqualified visual loss, left eye, normal vision right eye; R60.0 Localized edema; E78.00 Pure hypercholesterolemia, unspecified; I25.10 Atherosclerotic heart disease of native coronary artery without angina pectoris; E66.01 Morbid (severe) obesity due to excess calories; M19.079 Primary osteoarthritis, unspecified ankle and foot; Z68.36 Body mass index [BMI] 36.0-36.9, adult; Z86.73 Personal history of transient ischemic attack (TIA), and cerebral infarction without residual deficits; Z79.899 Other long term (current) drug therapy; Z89.422 Acquired absence of other left toe(s) | CPT/HCPCS: 97597; A6209 ==

== ENCOUNTER → 2025-02-10 | Outpatient (CLI) | payer OTHER | END | disposition home or self-care (01) | LOC: WHH 08:38 | PROVIDERS: ATTEND Podiatrist Foot & Ankle Surgery | DX: E11.621 Type 2 diabetes mellitus with foot ulcer (principal); L97.521 Non-pressure chronic ulcer of other part of left foot limited to breakdown of skin; L84 Corns and callosities; E11.69 Type 2 diabetes mellitus with other specified complication; M86.172 Other acute osteomyelitis, left ankle and foot; E11.52 Type 2 diabetes mellitus with diabetic peripheral angiopathy with gangrene; I96 Gangrene, not elsewhere classified; E11.42 Type 2 diabetes mellitus with diabetic polyneuropathy; E11.610 Type 2 diabetes mellitus with diabetic neuropathic arthropathy; E11.22 Type 2 diabetes mellitus with diabetic chronic kidney disease; I13.0 Hypertensive heart and chronic kidney disease with heart failure and stage 1 through stage 4 chronic kidney disease, or unspecified chronic kidney disease; N18.31 Chronic kidney disease, stage 3a; I50.32 Chronic diastolic (congestive) heart failure; J44.9 Chronic obstructive pulmonary disease, unspecified; H54.62 Unqualified visual loss, left eye, normal vision right eye; R60.0 Localized edema; E78.00 Pure hypercholesterolemia, unspecified; B35.1 Tinea unguium; I25.10 Atherosclerotic heart disease of native coronary artery without angina pectoris; E66.01 Morbid (severe) obesity due to excess calories; M19.079 Primary osteoarthritis, unspecified ankle and foot; Z68.36 Body mass index [BMI] 36.0-36.9, adult; Z86.73 Personal history of transient ischemic attack (TIA), and cerebral infarction without residual deficits; Z79.899 Other long term (current) drug therapy; Z89.422 Acquired absence of other left toe(s) | CPT/HCPCS: 11055; A6209 ==

== ENCOUNTER → 2025-03-03 | Outpatient (CLI) | payer OTHER | END | disposition home or self-care (01) | LOC: WHH 09:21 | PROVIDERS: ATTEND Podiatrist Foot & Ankle Surgery | DX: E11.621 Type 2 diabetes mellitus with foot ulcer (principal); L97.521 Non-pressure chronic ulcer of other part of left foot limited to breakdown of skin; L84 Corns and callosities; E11.69 Type 2 diabetes mellitus with other specified complication; M86.172 Other acute osteomyelitis, left ankle and foot; E11.52 Type 2 diabetes mellitus with diabetic peripheral angiopathy with gangrene; I96 Gangrene, not elsewhere classified; E11.42 Type 2 diabetes mellitus with diabetic polyneuropathy; E11.610 Type 2 diabetes mellitus with diabetic neuropathic arthropathy; E11.22 Type 2 diabetes mellitus with diabetic chronic kidney disease; I13.0 Hypertensive heart and chronic kidney disease with heart failure and stage 1 through stage 4 chronic kidney disease, or unspecified chronic kidney disease; N18.31 Chronic kidney disease, stage 3a; I50.32 Chronic diastolic (congestive) heart failure; J44.9 Chronic obstructive pulmonary disease, unspecified; H54.62 Unqualified visual loss, left eye, normal vision right eye; R60.0 Localized edema; E78.00 Pure hypercholesterolemia, unspecified; B35.1 Tinea unguium; I25.10 Atherosclerotic heart disease of native coronary artery without angina pectoris; E66.01 Morbid (severe) obesity due to excess calories; M19.079 Primary osteoarthritis, unspecified ankle and foot; Z68.36 Body mass index [BMI] 36.0-36.9, adult; Z86.73 Personal history of transient ischemic attack (TIA), and cerebral infarction without residual deficits; Z79.899 Other long term (current) drug therapy; Z89.422 Acquired absence of other left toe(s) | CPT/HCPCS: 11721; A6209; A4450 ==

== ENCOUNTER → 2025-03-17 | Outpatient (CLI) | payer OTHER | END | disposition home or self-care (01) | LOC: WHH 09:07 | PROVIDERS: ATTEND Podiatrist Foot & Ankle Surgery | DX: E11.621 Type 2 diabetes mellitus with foot ulcer (principal); L97.521 Non-pressure chronic ulcer of other part of left foot limited to breakdown of skin; L84 Corns and callosities; E11.69 Type 2 diabetes mellitus with other specified complication; M86.172 Other acute osteomyelitis, left ankle and foot; E11.52 Type 2 diabetes mellitus with diabetic peripheral angiopathy with gangrene; I96 Gangrene, not elsewhere classified; E11.42 Type 2 diabetes mellitus with diabetic polyneuropathy; E11.610 Type 2 diabetes mellitus with diabetic neuropathic arthropathy; E11.22 Type 2 diabetes mellitus with diabetic chronic kidney disease; I13.0 Hypertensive heart and chronic kidney disease with heart failure and stage 1 through stage 4 chronic kidney disease, or unspecified chronic kidney disease; N18.31 Chronic kidney disease, stage 3a; I50.32 Chronic diastolic (congestive) heart failure; J44.9 Chronic obstructive pulmonary disease, unspecified; H54.62 Unqualified visual loss, left eye, normal vision right eye; R60.0 Localized edema; E78.00 Pure hypercholesterolemia, unspecified; B35.1 Tinea unguium; I25.10 Atherosclerotic heart disease of native coronary artery without angina pectoris; E66.01 Morbid (severe) obesity due to excess calories; M19.079 Primary osteoarthritis, unspecified ankle and foot; Z68.36 Body mass index [BMI] 36.0-36.9, adult; Z86.73 Personal history of transient ischemic attack (TIA), and cerebral infarction without residual deficits; Z79.899 Other long term (current) drug therapy; Z89.422 Acquired absence of other left toe(s) | CPT/HCPCS: G0463; A6209; A4450 ==

== ENCOUNTER 2025-04-02 14:00 | Inpatient (IN) | payer OTHER ==
[~2025-04-02] VITALS: Ht 190.5 cm; Wt 116.5 kg
--- NOTE | 2025-04-02 14:10 | ERN ---
ED Note History of Present Illness Stated Complaint: RT 1ST TOE WOUND Chief Complaint: Toe Pain/Injury Time Seen by MD: 14:03 Dictation: A 64-YEAR-OLD MALE COMING IN TODAY WITH COMPLAINTS OF HAVING THE CHRONIC THE ASPECT OF HIS LEFT GREAT TOE HE HAS HAD. STATES THEN ADDITION TO THAT, HE STOPPED IT SEVERAL DAYS AGO AND MIGHT HAVE HURT IT. HE STATES HE DOES HAVE A HISTORY OF DIABETES WITH A AN ULCER HAS BEEN SEEING DR. MOHAN THE FEED MANAGER. HE SAID HE HAS HOME HEALTH CARE COME TO HIS HOME EVERY OTHER DAY FOR TREATMENT HOWEVER TODAY WAS ADVISED COME TO THE EMERGENCY ROOM. HE STATES HE DID HAVE CHILLS SEVERAL DAYS AGO. Allergies: Coded Allergies: No Known Drug Allergies (Unverified Allergy, Unknown, 04/26/22) Home Meds Reported Medications Insulin NPL/Insulin Lispro (Humalog Mix 75-25 Kwikpen) 100 Unit/1 Ml Insuln.pen, 0 SQ ACHS, SYRINGE 04/26/22 Metformin HCl (Metformin HCl ER) 500 Mg Tab.er.24, 500 MG PO DAILYDINNER 04/26/22 Metformin HCl (Metformin HCl ER) 500 Mg Tab.er.24, 500 MG PO ACDINNER 04/26/22 Amlodipine Besylate (Amlodipine Besylate) 10 Mg Tablet, 10 MG PO DAILY for 30 Days, #30 TAB 0 Refills 04/26/22 Metoprolol Succinate (Metoprolol Succinate) 50 Mg Tab.er.24h, 50 MG PO DAILY, TAB 04/26/22 Lisinopril/Hydrochlorothiazide (Lisinopril-Hctz 20-25 mg Tab) 1 Each Tablet, 1 EACH PO DAILY, TAB 04/26/22 Atorvastatin Calcium (Atorvastatin Calcium) 10 Mg Tablet, 10 MG PO DAILY, TAB 04/26/22 Past Medical History Past Medical History: Arthritis, Diabetes-Type II, High Cholesterol, Hypertension, Renal Disese Surgical History: Other Surgical History Other: LEFT TOES RN Note Reviewed/Agreed w/PFSH: Yes Review of System Dictation CONSTITUTIONAL: NEGATIVE EXCEPT FOR HPI HEAD/FACE: NEGATIVE EXCEPT FOR HPI EENT: NEGATIVE EXCEPT FOR HPI RESPIRATORY: NEGATIVE EXCEPT FOR HPI GASTROINTESTINAL/ABDOMINAL: NEGATIVE EXCEPT FOR HPI GENITOURINARY: NEGATIVE EXCEPT FOR HPI MUSCULOSKELETAL: NEGATIVE EXCEPT FOR HPI LEFT GREAT TOE PAIN WITH DIABETIC ULCER INTEGUMENTARY: NEGATIVE EXCEPT FOR HPI NEUROLOGICAL/PSYCH: NEGATIVE EXCEPT FOR HPI HEMATOLOGIC/LYMPHATIC: NEGATIVE EXCEPT FOR HPI ALL SYSTEMS NEGATIVE, EXCEPT NOTED ABOVE. 13 POINT REVIEW OF SYSTEMS ASSESSED AND ALL NEGATIVE EXCEPT FOR ABOVE. Initial Vital Sign VS Vital Signs Date Time Temp Pulse Resp B/P (MAP) Pulse Ox O2 Delivery O2 Flow Rate FiO2 04/02/25 14:03 98.1 98 18 132/78 97 04/02/25 14:48 Room Air* 0 21 Physical Exam Dictation VITAL SIGNS REVIEWED GENERAL APPEARANCE: ALERT, ORIENTED X 3, NO ACUTE DISTRESS, WELL DEVELOPED, NOURISHED. OBESE HEAD AND FACE: NON-TRAUMATIC. EYES: PERRL, PINK CONJUNCTIVAS, EYELID NO TRAUMA, ANTERIOR CHAMBER WITH ARCUS SENILIS. EARS: PINNAS INTACT AND NO SIGNS OF TRAUMA OR ERYTHEMA EAR CANALS CLEAR AND NO DISCHARGE TM NO ERYTHEMA NOSE: NO DISCHARGE, NO BLEEDING. OROPHARYNX: MOUTH NORMAL, TONGUE PINK, PHARYNX CLEAR,NO ERYTHEMA, TONSILS NO EXUDATES, NO ABSCESSES NOTED, MUCOUS MEMBRANE MOIST NECK: SUPPLE, NON-TENDER, NO THYROMEGALY, NO MASSES, NO JVD, NO BRUITS BREAST:DEFERRED CHEST:NO TENDERNESS, NO CREPITUS, NO PARADOXICAL MOVEMENT, NO RETRACTIONS LUNGS:CLEAR, WELL-VENTILATED, SYMMETRIC, NO RALES, NO WHEEZING, NO RHONCHI, NO STRIDOR, GOOD BREATH SOUNDS BILATERALLY HEART: REGULAR RATE, REGULAR RHYTHM, NO MURMUR, NO GALLOPS VASCULAR: NO PERIPHERAL EDEMA, ABDOMEN: SOFT, POSITIVE BOWEL SOUNDS, NONDISTENDED, NO GUARDING, NONTENDER, NO REBOUND, NO MASSES NO HEPATOMEGALY, NO SPLENOMEGALY, NO TRAYLOR'S SIGN, NO HERNIAS. RECTAL: DEFERRED GENITAL: DEFERRED NEUROLOGICAL: NORMAL SPEECH, MOTOR FUNCTION INTACT, SENSORY FUNCTION INTACT MUSCULOSKELETAL: NECK NONTENDER, FULL RANGE OF MOTION, BACK NONTENDER, FULL RANGE OF MOTION, EXTREMITIES: STAGE II DIABETIC ULCER TO PLANTAR ASPECT LEFT GREAT TOE. ERYTHEMA. NO DRAINAGE AT THIS TIME. SKIN: COLOR PINK, DRY, NO TURGOR, NO RASH, NO LACERATIONS, NO ABRASIONS, NO CONTUSIONS. LYMPHATIC: DEFERRED Results (Laboratory/Radiology) Laboratory/Radiology Laboratory Tests Test 04/02/25 14:16 White Blood Count 18.6 K/uL (4.8-10.8) H Red Blood Count 5.43 MIL/uL (4.50-6.20) Hemoglobin 16.1 g/dL (14.0-18.0) Hematocrit 48.6 % (42-54) Mean Corpuscular Volume 89.5 fL (79-99) Mean Corpuscular Hemoglobin 29.7 pg (27.0-33.0) Mean Corpuscular Hemoglobin Concent 33.1 g/dL (32.0-36.0) Red Cell Distribution Width 14.1 % (11.0-15.5) Platelet Count 221 K/uL (130-400) Mean Platelet Volume 11.1 fL (7.5-10.5) H Immature Granulocyte % (Auto) 0.6 % (0-1) Neutrophils (%) (Auto) 86.8 % (40.0-77.0) H Lymphocytes (%) (Auto) 5.9 % (21.0-51.0) L Monocytes (%) (Auto) 6.1 % (3.0-13.0) Eosinophils (%) (Auto) 0.3 % (0.0-8.0) Basophils (%) (Auto) 0.3 % (0.0-5.0) Neutrophils # (Auto) 16.2 K/uL (1.8-7.7) H Lymphocytes # (Auto) 1.1 K/uL (1.0-4.8) Monocytes # (Auto) 1.1 K/uL (0.1-1.0) H Eosinophils # (Auto) 0.05 K/uL (0.00-0.70) Basophils # (Auto) 0.05 K/uL (0.00-0.20) Absolute Immature Granulocyte (auto 0.11 K/uL (0-1) Nucleated Red Blood Cells 0.0 % (0.0-0.19) White Cell Morphology Comment See comments Sodium Level 133 mmol/L (136-145) L Potassium Level 3.7 mmol/L (3.5-5.1) Chloride Level 97 mmol/L (101-111) L Carbon Dioxide Level 29 mmol/L (21-32) Blood Urea Nitrogen 27 mg/dL (7-18) H Creatinine 2.0 mg/dL (0.5-1.3) H Glomerular Filtration Rate Calc 37 mL/min (>90) Random Glucose 288 mg/dL (70-105) H Lactic Acid Level 2.2 mmol/L (0.8-2.5) Total Calcium 9.0 mg/dL (8.5-10.1) REASON: LEFT GREAT TOE PAIN WITH A ULCER. BLUNT TRAUMA THREE DAYS ORDERING PHYSICIAN: RANJEET LAYNE SECTION GANG PROCEDURE: FT 3VW LT - FOOT COMP 3+VWS LT STUDY CR left foot, 3 views. HISTORY Left great toe pain with ulcer after blunt trauma three days ago. TECHNIQUE Three radiographic views of the right foot were obtained. COMPARISON None. FINDINGS Bones There is amputation deformity involving the distal aspect of the second metatarsal with features of a healed fracture nonunion. No acute fracture or aggressive appearing osseous lesion is identified in the remaining right foot. Joints The visualized joint spaces are preserved with normal alignment. No sol dislocation is seen. Soft tissues There is soft tissue swelling involving the great toe and forefoot. Subcutaneous gas is present about the great toe, including along the articular margins of the interphalangeal joint of the great toe, raising concern for gas-forming soft tissue infection. Additional soft tissue swelling involves the remainder of the foot. IMPRESSION * Soft tissue swelling of the great toe and forefoot with subcutaneous gas about the great toe, including around the interphalangeal joint, suspicious for gas-forming soft tissue infection in the appropriate clinical setting. Consider contrast-enhanced MR imaging for further evaluation. * Amputation deformity with healed fracture nonunion involving the distal second metatarsal. * No acute fracture identified. /[place] Labs Reviewed?: Yes ED Course ED Course Orders Procedure Category Date Status Time Blood Cult LEX 04/02/25 In Process 14:07 Lactic Acid LAB 04/02/25 Complete 14:07 Foot Comp 3+Vws Lt RAD 04/02/25 Resulted 14:07 Cbc With Differential LAB 04/02/25 Complete 14:07 Basic Metabolic Panel LAB 04/02/25 Complete 14:07 Clindamycin Ivpb PHA 04/02/25 Complete 600mg/50ml (Cleocin 14:36 Vancomycin 1g/250ml PHA 04/02/25 Complete Kit (Vancomycin 1g/2 15:46 Edm Admit Bridge Order ADM 04/02/25 Verified 16:07 Current Medications Medications (Trade) Dose Ordered Sig/Ady Route PRN Reason Start Time Stop Time Status Last Admin Dose Admin Clindamycin HCl/ Dextrose 50 ml @ 100 mls/hr Q8H STAT IV 04/02/25 14:36 04/02/25 15:05 DC 04/02/25 15:23 Vancomycin HCl (Vancomycin 1g/ 250ml Kit) 1 gm ONCE STAT IV 04/02/25 15:46 04/02/25 15:50 DC Vital Signs Date Time Temp Pulse Resp B/P (MAP) Pulse Ox O2 Delivery O2 Flow Rate FiO2 04/02/25 14:48 98.8 96 16 111/91 97 Room Air* 0 21 04/02/25 14:03 98.1 98 18 132/78 97 1438/[place] [address] WBCS WITH LACTIC ACID 2.2. WE WILL LIMIT FLUIDS TO 1 L OF NORMAL SALINE WITH CLINDAMYCIN 600 MG IV UNTIL RENAL STATUS IS KNOWN. ANTICIPATE ADMISSION TO THE HOSPITAL1 PATIENT HAS A GAS GANGRENE LEFT GREAT TOE. HE WAS GIVEN NORMAL SALINE 1 G, CLINDAMYCIN 600 MG IV AND WE WILL ADD 1 G VANCOMYCIN AND WE WILL HAVE PATIENT ADMITTED TO THE HOSPITAL. FLUIDS WE WILL BE LIMITED TO 1 L DUE TO PATIENT'S GFR 37. 1608/SPOKE WITH [facility]IL [facility] AND REVIEWED LABS TO INCLUDE X-RAY OF THE FOOT AND INTERVENTIONS FOR GANGRENE TO INCLUDE CLINDAMYCIN AND VANCOMYCIN HE AGREED TO ADMIT PATIENT. Medical Decision Making MDM MDM AND RADIOLOGY PREVIOUS OUTSIDE RECORDS REVIEWED: OLD ER VISITS. RISK OF COMPLICATION AND/OR MORBIDITY OR MORTALITY OF PATIENT MANAGEMENT: NONE MEDICATIONS-PER MEDICATION RECONCILIATION NEED FOR HOSPITALIZATION: PATIENT DOES MEET CRITERIA FOR HOSPITALIZATION. PATIENT WILL BE ADMITTED TO THE HOSPITAL FOR FLUID RESUSCITATION ANTIBIOTICS FOR GAS GANGRENE LEFT GREAT TOE AND WOUND CARE AND I&D CONSULTATION NEED FOR EMERGENCY MAJOR/MINOR SURGERY: NO THERE ARE NO SOCIAL CONCERNS WITH THIS PATIENT. PRESCRIPTION DRUG MANAGEMENT PRESCRIPTIONS WILL INCLUDE SYMPTOMATIC CARE PATIENT'S PRIOR EXTERNAL MEDICAL RECORDS FROM OTHER ER VISITS WERE REVIEWED BY ME INDICATED. PRIOR TESTING AND RESULTS FROM PREVIOUS VISITS WERE REVIEWED. PRIOR TESTS WERE TAKEN INTO ACCOUNT WITH MEDICAL DECISION MAKING AND RESOURCE UTILIZATION, INDEPENDENT HISTORIAN/HISTORIANS WERE USED TO OBTAIN COMPLETE MEDICAL HISTORY. I INDEPENDENTLY INTERPRETED THE TEST THAT WERE PERFORMED, RESULTS WERE REVIEWED BY ME AND CONSIDERED FINDINGS ON RADIOLOGY IF ORDERED. MEDICAL MANAGEMENT AND EXAMINATION INTERPRETATION DISCUSSIONS WERE HAD BY ME WITH OTHER QUALIFIED HEALTHCARE PROFESSIONALS INDICATED FOR THE PATIENT'S CARE. DX & DISP Disposition: Inpatient Decision to Admit Time: 15:50 Departure Impression: Primary Impression: Gangrene of toe of left foot Additional Impressions: Hyponatremia, Acute on chronic kidney failure, Uncontrolled diabetes mellitus, Morbid obesity, Sepsis Condition: Stable Referrals: LUIS MATA MD (PCP) I have reviewed the case, and I agree with RANJEET LAYNE SECTION GANG Apr 02, 2025 14:10
[2025-04-02 14:30] LABS: IMMATURE GRANULOCYTE ABSOLUTE 0.11 K/uL (0-1); NUCLEATED RED BLOOD CELLS 0.0 % (0.0-0.19); PLATELET COUNT (AUTO) 221 K/uL (130-400); RED BLOOD CELL COUNT(AUTO) 5.43 MIL/uL (4.50-6.20); RED CELL DISTRIBUTION WIDTH 14.1 % (11.0-15.5); WHITE BLOOD COUNT (AUTO) 18.6 K/uL (4.8-10.8)
[2025-04-02 14:43] LABS: CREATININE 2.0 mg/dL (0.5-1.3); GLOMERULAR FILTR. RATE CALC 37.0 mL/min (>90); GLUCOSE,RANDOM 288.0 mg/dL (70-105); SODIUM SERUM 133.0 mmol/L (136-145); UREA NITROGEN, BLOOD 27.0 mg/dL (7-18)
--- NOTE | 2025-04-02 14:59 | HMCIMG ---
STUDY CR left foot, 3 views. HISTORY Left great toe pain with ulcer after blunt trauma three days ago. TECHNIQUE Three radiographic views of the right foot were obtained. COMPARISON None. FINDINGS Bones There is amputation deformity involving the distal aspect of the second metatarsal with features of a healed fracture nonunion. No acute fracture or aggressive appearing osseous lesion is identified in the remaining right foot. Joints The visualized joint spaces are preserved with normal alignment. No sol dislocation is seen. Soft tissues There is soft tissue swelling involving the great toe and forefoot. Subcutaneous gas is present about the great toe, including along the articular margins of the interphalangeal joint of the great toe, raising concern for gas-forming soft tissue infection. Additional soft tissue swelling involves the remainder of the foot. IMPRESSION * Soft tissue swelling of the great toe and forefoot with subcutaneous gas about the great toe, including around the interphalangeal joint, suspicious for gas-forming soft tissue infection in the appropriate clinical setting. Consider contrast-enhanced MR imaging for further evaluation. * Amputation deformity with healed fracture nonunion involving the distal second metatarsal. * No acute fracture identified. /[place]
[2025-04-02] MEDS: CLINDAMYCIN IVPB 600MG/50ML 50 ML IV STA (15:23)
[2025-04-02] MEDS: VANCOMYCIN KIT 1 GM/250 ML IV.KIT IV STA (16:25)
[2025-04-02] MEDS ORDERED: LOPERAMIDE HCL 2 MG CAP PO PRN (17:00)
[2025-04-02] MEDS ORDERED: MAG/ALUM/SIMETH 30 ML UDCUP PO PRN (17:00)
[2025-04-02] MEDS ORDERED: guaiFENesin-DM 200/20MG 10ML PO PRN (17:00)
[2025-04-02] MEDS ORDERED: ARTIFICAL TEARS SOL 15 ML OP PRN (17:00)
[2025-04-02] MEDS ORDERED: LIDOCAINE HCL 2% VISCOUS 30 ML, MAG/ALUM/SIMETH 30ML 30 ML, DICYCLOMINE HCL 20 MG PO PRN (17:00)
[2025-04-02] MEDS ORDERED: BENZOCAINE/MENTH/CETYLPYRD CL 1 EACH LOZENGE MM PRN (17:00)
[2025-04-02] MEDS ORDERED: LACTULOSE 20 GM/30 ML UDCUP PO PRN (17:00)
[2025-04-02] MEDS ORDERED: NITROGLYCERIN 0.4 MG SL TAB SL PRN (17:00)
[2025-04-02] MEDS ORDERED: CLON0.1T PO (18:34)
[2025-04-02] MEDS ORDERED: LISI40TA15 PO (18:34)
[2025-04-02] MEDS ORDERED: HYDR50TA37 PO (18:35)
--- NOTE | 2025-04-02 20:14 | HP ---
[facility] HISTORY & PHYSICAL Date Patient Seen: Apr 02, 2025 Time of Visit: 20:13 Supervising Physician: Dr. Mata Simms Primary Care Physician: Joana Díaz Outpatient Specialists: [ ] Inpatient Consults: [ ] PROBLEM LIST: Left great toe necrosis, x-ray showed soft tissue swelling of the great toe and forefoot with subcutaneous gas, POA Chronic left foot wound, POA Hypertension, POA Hyperlipidemia, POA DM type 2, with hyperglycemia, POA Acute on chronic kidney disease, POA History of left eye blindness Class two obesity, BMI of 35, POA Hyponatremia, POA PLAN: Admit to medical-surgical floor VS per unit protocol Start vancomycin and cefepime Consult Podiatry in a.m. Treat fever aggressively Monitor temperature curve Avoid nephrotoxic agents Renally dose all medications Keep SBP less than 160 P.r.n. hydralazine and labetalol Keep serum glucose less than 150 ISS and fingerstick per unit protocol Bilateral SCDs Wound care consult CBC, CMP, magnesium level daily HPI: 64-year-old male with past medical history of DM type 2, hypertension, hyperlipidemia, chronic wound to left foot, who presented to ED via private vehicle with complaint of worsening left great toe swelling with increasing wound drainage and found to have nonhealing ulcer to great toe, possible gas gangrene, acute on chronic kidney disease, and leukocytosis. Patient was seen and examined in ED with no relatives present at bedside. Apparently patient has been having issues with blister-like formation on the left great toe, last Saturday patient hit a barrel, and afterwards developed worsening leg swelling and increasing drainage on that left foot. Apparently patient is getting care from a wound care nurse, was advised to come to ED for further medical evaluation. In ED CBC was done and showed WBC [place] more [place] [address], chemistry showed creatinine level of 2.0, sodium level of 133. X-ray of the left foot showed soft tissue swelling of the great toe and forefoot with subcutaneous gas about the great toe including around the interphalangeal joint suspicious for gas- forming soft tissue infection. Patient was subsequently started on clindamycin and was given one dose of vancomycin. We will consult Podiatry in a.m. At present patient is currently hemodynamically stable, on room air with ap propriate oxygen saturation, denies any headache, chest pain, shortness of breath, abdominal pain, fever, dysuria, or flu-like symptoms. Patient denies any smoking, alcohol intake, or illicit drug use. PAST MEDICAL HX: see above PAST SURGICAL HX: Left 2nd toe amputation SOCIAL HISTORY: No tobacco, ETOH, or illicit drug use Coded Allergies: No Known Drug Allergies (Unverified Allergy, Unknown, 04/26/22) REVIEW OF SYSTEMS: 12 point ROS reviewed with patient. Pertinent positives mentioned above. Otherwise negative. PHYSICAL EXAM: GENERAL: alert, weak, awake oriented x 3 HEENT: Left eye blindness NECK: Supple, no JVD, trachea midline LUNGS: Clear breath sounds bilaterally. No wheezes HEART: Regular rate and rhythm. Normal S1 and S2, without murmurs ABD: Abdomen soft, nontender. Bowel sounds present EXT: No clubbing cyanosis or edema, necrotic left great toe NEURO: Alert and oriented to person, follows commands Vital Signs (last 8hr) Date Time Temp Pulse Resp B/P (MAP) Pulse Ox O2 Delivery O2 Flow Rate FiO2 04/02/25 18:25 98.8 81 15 130/73 97 Room Air* 0 21 04/02/25 18:16 99.9 76 16 123/58 99 Room Air* 0 21 04/02/25 14:48 98.8 96 16 111/91 97 Room Air* 0 21 04/02/25 14:03 98.1 98 18 132/78 97 LABS: Hematology Labs: Test 04/02/25 14:16 Range/Units White Blood Count 18.6 H 4.8-10.8 K/uL Red Blood Count 5.43 4.50-6.20 MIL/uL Hemoglobin 16.1 14.0-18.0 g/dL Hematocrit 48.6 42-54 % Mean Corpuscular Volume 89.5 79-99 fL Mean Corpuscular Hemoglobin 29.7 27.0-33.0 pg Mean Corpuscular Hemoglobin Concent 33.1 32.0-36.0 g/dL Red Cell Distribution Width 14.1 11.0-15.5 % Platelet Count 221 130-400 K/uL Mean Platelet Volume 11.1 H 7.5-10.5 fL Immature Granulocyte % (Auto) 0.6 0-1 % Neutrophils (%) (Auto) 86.8 H 40.0-77.0 % Lymphocytes (%) (Auto) 5.9 L 21.0-51.0 % Monocytes (%) (Auto) 6.1 3.0-13.0 % Eosinophils (%) (Auto) 0.3 0.0-8.0 % Basophils (%) (Auto) 0.3 0.0-5.0 % Neutrophils # (Auto) 16.2 H 1.8-7.7 K/uL Lymphocytes # (Auto) 1.1 1.0-4.8 K/uL Monocytes # (Auto) 1.1 H 0.1-1.0 K/uL Eosinophils # (Auto) 0.05 0.00-0.70 K/uL Basophils # (Auto) 0.05 0.00-0.20 K/uL Absolute Immature Granulocyte (auto 0.11 0-1 K/uL Nucleated Red Blood Cells 0.0 0.0-0.19 % White Cell Morphology Comment See comments Chemistry Labs: Test 04/02/25 18:03 04/02/25 16:56 04/02/25 14:16 Range/Units Lactic Acid Level 1.1 0.8-2.5 mmol/L Whole Blood Glucose 258 H 70-110 MG/DL Sodium Level 133 L 136-145 mmol/L Potassium Level 3.7 3.5-5.1 mmol/L Chloride Level 97 L 101-111 mmol/L Carbon Dioxide Level 29 21-32 mmol/L Blood Urea Nitrogen 27 H 7-18 mg/dL Creatinine 2.0 H 0.5-1.3 mg/dL Glomerular Filtration Rate Calc 37 >90 mL/min Random Glucose 288 H 70-105 mg/dL Total Calcium 9.0 8.5-10.1 mg/dL DIAGNOSTICS / RADIOLOGY RESULTS: STUDY CR left foot, 3 views. HISTORY Left great toe pain with ulcer after blunt trauma three days ago. TECHNIQUE Three radiographic views of the right foot were obtained. COMPARISON None. FINDINGS Bones There is amputation deformity involving the distal aspect of the second metatarsal with features of a healed fracture nonunion. No acute fracture or aggressive appearing osseous lesion is identified in the remaining right foot. Joints The visualized joint spaces are preserved with normal alignment. No sol dislocation is seen. Soft tissues There is soft tissue swelling involving the great toe and forefoot. Subcutaneous gas is present about the great toe, including along the articular margins of the interphalangeal joint of the great toe, raising concern for gas-forming soft tissue infection. Additional soft tissue swelling involves the remainder of the foot. IMPRESSION * Soft tissue swelling of the great toe and forefoot with subcutaneous gas about the great toe, including around the interphalangeal joint, suspicious for gas-forming soft tissue infection in the appropriate clinical setting. Consider contrast-enhanced MR imaging for further evaluation. * Amputation deformity with healed fracture nonunion involving the distal second metatarsal. * No acute fracture identified. /[place] PLAN NEURO: Minimize central acting medications as possible. Maintain fall precautions, adequate lighting during the day PULMONARY: Supplemental 02 as needed. Maintain aspiration precautions at all times CARDIOVASCULAR: Follow hemodynamics. Vital signs per facility protocol GI & NUTRITION: Continue with nutritional support. Continue stool softeners and laxatives as needed. KIDNEYS & ELECTROLYTES: Strict monitoring of intake, output and overall fluid balance. Avoid nephrotoxic medications to the extent possible. Medications to be dosed according to renal function. Monitor electrolytes and replace as needed ENDOCRINE: Maintain blood glucose between 100-180 at all times. Hypoglycemia protocol in place INFECTIOUS DISEASE: Trend temperature, WBC and procalcitonin level Follow cultures, deescalate antibiotics as soon as possible. Panculture if new onset fever ONCOLOGY/HEMATOLOGY/COAGULATION: Monitor for s/s of bleeding Monitor hemoglobin, coagulation studies as needed SKIN: Pressure ulcer prevention per facility protocol Specialty mattress ORTHO/REHAB: Continue PT/OT Prophylaxis: Continue GI and DVT prophylaxis Code Status: Full Resuscitation Disposition: TBD Supervising physician: KAYCE Santana AGACN Apr 02, 2025 20:14
[2025-04-02] MEDS: FAMOTIDINE 20MG TAB PO SCH (20:27)
[2025-04-02] MEDS ORDERED: VANCOMYCIN PROTOCOL PER PHARMACY IV SCH (21:00)
[2025-04-02 22:35] VITALS: O2SAT 97
--- NOTE | 2025-04-02 22:35 | NUR ---
ADMISSION NOTE PATIENT ARRIVED FROM ER, REPORT GIVEN BY DANIELE QUINN PATIENT SETTLED INTO BED 306, PHYSICAL ASSESSMENT PERFORMED, SEE ASSESSMENT FLOWSHEET. PATIENT ALERT, ORIENTED, AND ABLE TO MAKE NEEDS KNOWN. ORIENTED TO CALL LIGHT AND UNIT FALL POLICIES. LEFT GREAT TOE WOUND CLEANSED WITH NS, DRESSED WITH GAUZE AND TAPE, PICTURES TAKEN. CALL LIGHT IN REACH.
[2025-04-02] MEDS: VANCOMYCIN 2GM/500 ML BAG 500 ML IV ONE (22:48)
[2025-04-02] MEDS: 0.9%NACL 1000ML 1,000 ML IV SCH (22:49)
[2025-04-03] VITALS (7 sets, daily range): BP systolic 141–181; BP diastolic 67–89; PULSE 72–85; RESP 18–20; TEMP 97.2–98.2; O2SAT 95
--- NOTE | 2025-04-03 14:37 | PN ---
[facility] PROGRESS NOTE Date Patient Seen: Apr 03, 2025 Time of Visit: 14:35 Supervising Physician: [Dr. Roberto] Primary Care Physician: Joana Díaz Outpatient Specialists: [ ] Inpatient Consults: [Podiatry] PROBLEM LIST: Left great toe necrosis, x-ray showed soft tissue swelling of the great toe and forefoot with subcutaneous gas, POA Chronic left foot wound, POA Hypertension, POA Hyperlipidemia, POA DM type 2, with hyperglycemia, POA Acute on chronic kidney disease, POA History of left eye blindness Class two obesity, BMI of 35, POA Hyponatremia, POA PLAN: Order MRI of L-foot Order arterial doppler Continue vancomycin and cefepime Consult Podiatry Treat fever aggressively Monitor temperature curve Avoid nephrotoxic agents Renally dose all medications Keep SBP less than 160 P.r.n. hydralazine and labetalol Keep serum glucose less than 150 ISS and fingerstick per unit protocol Bilateral SCDs Wound care consult CBC, CMP, magnesium level daily INTERVAL HISTORY: [64-year-old male with past medical history of DM type 2, hypertension, hyperlipidemia, chronic wound to left foot, who presented to ED via private vehicle with complaint of worsening left great toe swelling with increasing wound drainage and found to have nonhealing ulcer to great toe, possible gas gangrene, acute on chronic kidney disease, and leukocytosis. Patient was seen and examined in ED with no relatives present at bedside. Apparently patient has been having issues with blister-like formation on the left great toe, last Saturday patient hit a barrel, and afterwards developed worsening leg swelling and increasing drainage on that left foot. Apparently patient is getting care from a wound care nurse, was advised to come to ED for further medical evaluation. In ED CBC was done and showed [place] more [place] [address]32[address], chemistry showed creatinine level of 2.0, sodium level of 133. X-ray of the left foot showed soft tissue swelling of the great toe and forefoot with subcutaneous gas about the great toe including around the interphalangeal joint suspicious for gas- forming soft tissue infection. Patient was subsequently started on clindamycin and was given one dose of vancomycin. We will consult Podiatry in a.m. At present patient is currently hemodynamically stable, on room air with appropriate oxygen saturation, denies any headache, chest pain, shortness of breath, abdominal pain, fever, dysuria, or flu-like symptoms. Patient denies any smoking, alcohol intake, or illicit drug use.] 04/03 Patient is evaluated at bedside. He was just evaluated by podiatry, pending consult note. Patient states has had multiple surgeries in the past with Dr. Barton as well as Dr. Lowery. WBC is elevated, blood glucose and CRP are elevated. CXR cannot r/o osteomyelitis to L-foot. Blood culture is negative. He continues on cefepime and vancomycin. Patient underwent wound care by podiatry and deferred foot exam. REVIEW OF SYSTEMS: 12 point ROS reviewed with patient. Pertinent positives mentioned above. Otherwise negative. PHYSICAL EXAM: GENERAL: alert, weak, awake oriented x 3 HEENT: Left eye blindness NECK: Supple, no JVD, trachea midline LUNGS: Clear breath sounds bilaterally. No wheezes HEART: Regular rate and rhythm. Normal S1 and S2, without murmurs ABD: Abdomen soft, nontender. Bowel sounds present EXT: No clubbing cyanosis or edema, necrotic left great toe NEURO: Alert and oriented to person, follows commands Vital Signs (last 8hr) Date Time Temp Pulse Resp B/P (MAP) Pulse Ox O2 Delivery O2 Flow Rate FiO2 04/03/25 12:00 98.2 74 18 159/77 95 Room Air 04/03/25 10:18 72 181/89 04/03/25 08:00 97.2 72 20 181/89 95 Room Air LABS: Hematology Labs: Test 04/02/25 14:16 Range/Units White Blood Count 18.6 H 4.8-10.8 K/uL Red Blood Count 5.43 4.50-6.20 MIL/uL Hemoglobin 16.1 14.0-18.0 g/dL Hematocrit 48.6 42-54 % Mean Corpuscular Volume 89.5 79-99 fL Mean Corpuscular Hemoglobin 29.7 27.0-33.0 pg Mean Corpuscular Hemoglobin Concent 33.1 32.0-36.0 g/dL Red Cell Distribution Width 14.1 11.0-15.5 % Platelet Count 221 130-400 K/uL Mean Platelet Volume 11.1 H 7.5-10.5 fL Immature Granulocyte % (Auto) 0.6 0-1 % Neutrophils (%) (Auto) 86.8 H 40.0-77.0 % Lymphocytes (%) (Auto) 5.9 L 21.0-51.0 % Monocytes (%) (Auto) 6.1 3.0-13.0 % Eosinophils (%) (Auto) 0.3 0.0-8.0 % Basophils (%) (Auto) 0.3 0.0-5.0 % Neutrophils # (Auto) 16.2 H 1.8-7.7 K/uL Lymphocytes # (Auto) 1.1 1.0-4.8 K/uL Monocytes # (Auto) 1.1 H 0.1-1.0 K/uL Eosinophils # (Auto) 0.05 0.00-0.70 K/uL Basophils # (Auto) 0.05 0.00-0.20 K/uL Absolute Immature Granulocyte (auto 0.11 0-1 K/uL Nucleated Red Blood Cells 0.0 0.0-0.19 % White Cell Morphology Comment See comments Chemistry Labs: Test 04/03/25 14:09 04/03/25 11:58 04/02/25 18:03 04/02/25 14:16 Range/Units C-Reactive Protein, Quantitative 77.80 H 0.5-3.0 mg/L Whole Blood Glucose 396 #H 70-110 MG/DL Lactic Acid Level 1.1 0.8-2.5 mmol/L Sodium Level 133 L 136-145 mmol/L Potassium Level 3.7 3.5-5.1 mmol/L Chloride Level 97 L 101-111 mmol/L Carbon Dioxide Level 29 21-32 mmol/L Blood Urea Nitrogen 27 H 7-18 mg/dL Creatinine 2.0 H 0.5-1.3 mg/dL Glomerular Filtration Rate Calc 37 >90 mL/min Random Glucose 288 H 70-105 mg/dL Total Calcium 9.0 8.5-10.1 mg/dL DIAGNOSTICS / RADIOLOGY RESULTS: [ ] PLAN NEURO: Minimize central acting medications as possible. Maintain fall precautions, adequate lighting during the day PULMONARY: Supplemental 02 as needed. Maintain aspiration precautions at all times CARDIOVASCULAR: Follow hemodynamics. Vital signs per facility protocol GI & NUTRITION: Continue with nutritional support. Continue stool softeners and laxatives as needed. KIDNEYS & ELECTROLYTES: Strict monitoring of intake, output and overall fluid balance. Avoid nephrotoxic medications to the extent possible. Medications to be dosed according to renal function. Monitor electrolytes and replace as needed ENDOCRINE: Maintain blood glucose between 100-180 at all times. Hypoglycemia protocol in place INFECTIOUS DISEASE: Trend temperature, WBC and procalcitonin level Follow cultures, deescalate antibiotics as soon as possible. Panculture if new onset fever ONCOLOGY/HEMATOLOGY/COAGULATION: Monitor for s/s of bleeding Monitor hemoglobin, coagulation studies as needed SKIN: Pressure ulcer prevention per facility protocol Specialty mattress ORTHO/REHAB: Continue PT/OT Prophylaxis: Continue GI and DVT prophylaxis Code Status: Full Resuscitation Disposition: TBKAI LOPEZ PAC Apr 03, 2025 14:37
--- NOTE | 2025-04-03 18:42 | NUR ---
cm note met with pt and states lives with father, independent with ambulation. has [employer] for wound and goes to wound center [facility]. INDIGO obtained. provider for adls assist. has cane but does not use. uses. [employer] transportation. dc plan is back home. Addendum: 04/03/25 at 1846 by ANDRE BRANTLEY CM Amended: Links added.
[2025-04-03] MEDS: VANCOMYCIN 1.5 GM/250 ML BAG 250 ML IV SCH (21:07)
--- NOTE | 2025-04-03 22:54 | HMCIMG ---
EXAM: Bilateral Lower Extremity Arterial Duplex Ultrasound HISTORY: Peripheral arterial disease. Prior vascular surgery. TECHNIQUE: Grayscale, color Doppler, and spectral Doppler ultrasound evaluation of the arterial systems of the bilateral lower extremities was performed. Limited evaluation of the distal left lower extremity due to overlying bandages. COMPARISON: None available. FINDINGS: Right: ARTERY VELOCITY WAVEFORM RN POSTPARTUM 112 cm/sec Triphasic SFA-Prox 133 cm/sec Triphasic SFA-Mid 130 cm/sec Triphasic SFA-Dist 81 cm/sec Triphasic Popliteal 106 cm/sec Triphasic Post-Tib 64 cm/sec Triphasic Ant-Tib 76 cm/sec Triphasic DPA 69 cm/sec Triphasic Left: ARTERY VELOCITY WAVEFORM RN POSTPARTUM 131 cm/sec Triphasic SFA-Prox 140 cm/sec Triphasic SFA-Mid 133 cm/sec Triphasic SFA-Dist 105 cm/sec Triphasic Popliteal 121 cm/sec Triphasic Post-Tib 95 cm/sec Monophasic Ant-Tib 110 cm/sec Monophasic DPA Not visualized Surrounding soft tissues show no evidence of masses. There is no popliteal cyst. Visualized muscular tissue appears within normal limits. No inguinal or thigh lymph nodes are identified. IMPRESSION: * Findings consistent with mild peripheral vascular disease without occlusion, right lower extremity. * Findings consistent with moderate peripheral vascular disease without occlusion, left lower extremity. RECOMMENDATIONS: Per ACR Appropriateness Criteria, correlation with ankle-brachial indices is recommended. If there is clinical concern for critical limb ischemia or worsening symptoms, further evaluation with CT angiography or MR angiography of the lower extremities may be considered. /[place]
[2025-04-04] VITALS (9 sets, daily range): BP systolic 138–175; BP diastolic 62–89; PULSE 72–84; RESP 18–19; TEMP 97.3–98.2; O2SAT 95
[2025-04-04 05:11] LABS: IMMATURE GRANULOCYTE ABSOLUTE 0.04 K/uL (0-1); NUCLEATED RED BLOOD CELLS 0.0 % (0.0-0.19); PLATELET COUNT (AUTO) 214 K/uL (130-400); RED BLOOD CELL COUNT(AUTO) 5.20 MIL/uL (4.50-6.20); RED CELL DISTRIBUTION WIDTH 13.7 % (11.0-15.5); WHITE BLOOD COUNT (AUTO) 9.9 K/uL (4.8-10.8)
[2025-04-04 05:26] LABS: CREATININE 1.4 mg/dL (0.5-1.3); GLOMERULAR FILTR. RATE CALC 56.0 mL/min (>90); GLUCOSE,RANDOM 142.0 mg/dL (70-105); SODIUM SERUM 136.0 mmol/L (136-145); UREA NITROGEN, BLOOD 20.0 mg/dL (7-18)
[2025-04-04] MEDS: LISINOPRIL 40 MG TABLET PO SCH (07:57)
[2025-04-04] MEDS: amLODIPine 5 MG TAB PO SCH (07:57)
--- NOTE | 2025-04-04 09:45 | PN ---
[facility] PROGRESS NOTE Date Patient Seen: Apr 04, 2025 Time of Visit: 09:35 Supervising Physician: [Dr. Tang] Primary Care Physician: Joana Díaz Outpatient Specialists: [ ] Inpatient Consults: [Podiatry] PROBLEM LIST: Left great toe necrosis, s/p ID at bedside, pending MRI Chronic left foot wound, POA Acute kidney injury in chronic kidney disease, POA Hypertension, POA Hyperlipidemia, POA DM type 2, with hyperglycemia, POA History of left eye blindness Class two obesity, BMI of 35, POA Hyponatremia, POA PLAN: Pending MRI of L-foot Pending arterial doppler Continue vancomycin and cefepime Follow Podiatry recommendation Treat fever aggressively Monitor temperature curve Avoid nephrotoxic agents Renally dose all medications Keep SBP less than 160 P.r.n. hydralazine and labetalol Keep serum glucose less than 150 ISS and fingerstick per unit protocol Bilateral SCDs Wound care consult CBC, CMP, magnesium level daily INTERVAL HISTORY: [64-year-old male with past medical history of DM type 2, hypertension, hyperlipidemia, chronic wound to left foot, who presented to ED via private vehicle with complaint of worsening left great toe swelling with increasing wound drainage and found to have nonhealing ulcer to great toe, possible gas gangrene, acute on chronic kidney disease, and leukocytosis. Patient was seen and examined in ED with no relatives present at bedside. Apparently patient has been having issues with blister-like formation on the left great toe, last Saturday patient hit a barrel, and afterwards developed worsening leg swelling and increasing drainage on that left foot. Apparently patient is getting care from a wound care nurse, was advised to come to ED for further medical evaluation. In ED CBC was done and showed [place] 874[address], chemistry showed creatinine level of 2.0, sodium level of 133. X-ray of the left foot showed soft tissue swelling of the great toe and forefoot with subcutaneous gas about the great toe including around the interphalangeal joint suspicious for gas- forming soft tissue infection. Patient was subsequently started on clindamycin and was given one dose of vancomycin. We will consult Podiatry in a.m. At present patient is currently hemodynamically stable, on room air with appropriate oxygen saturation, denies any headache, chest pain, shortness of breath, abdominal pain, fever, dysuria, or flu-like symptoms. Patient denies any smoking, alcohol intake, or illicit drug use.] 04/03 Patient is evaluated at bedside. He was just evaluated by podiatry, pending consult note. Patient states has had multiple surgeries in the past with Dr. Barton as well as Dr. Lowery. WBC is elevated, blood glucose and CRP are elevated. CXR cannot r/o osteomyelitis to L-foot. Blood culture is negative. He continues on cefepime and vancomycin. Patient underwent wound care by podiatry and deferred foot exam. 04/04 patient is evaluated at bedside. His vitals are within normal limits, afebrile overnight. Blood pressure is improved. Has been blood sugars improved on insulin regimen. WBC improved. He continues on cefepime and vancomycin for a diabetic foot ulcer. He had an I&D yesterday at bedside by Dr. Lowery, pending official consult note. Patient states we will have follow-up with podiatry on Saturday for further management. He did obtain an MRI and arterial Dopplers, pending results. REVIEW OF SYSTEMS: 12 point ROS reviewed with patient. Pertinent positives mentioned above. Otherwise negative. PHYSICAL EXAM: GENERAL: alert, weak, awake oriented x 3 HEENT: Left eye blindness NECK: Supple, no JVD, trachea midline LUNGS: Clear breath sounds bilaterally. No wheezes HEART: Regular rate and rhythm. Normal S1 and S2, without murmurs ABD: Abdomen soft, nontender. Bowel sounds present EXT: No clubbing cyanosis or edema, necrotic left great toe NEURO: Alert and oriented to person, follows commands Vital Signs (last 8hr) Date Time Temp Pulse Resp B/P (MAP) Pulse Ox O2 Delivery O2 Flow Rate FiO2 04/04/25 08:00 98.1 72 18 138/73 98 Room Air 04/04/25 07:57 138/73 04/04/25 07:36 98.1 84 18 156/73 96 Room Air LABS: Hematology Labs: Test 04/04/25 04:41 04/03/25 14:09 04/02/25 14:16 Range/Units White Blood Count 9.9 4.8-10.8 K/uL Red Blood Count 5.20 4.50-6.20 MIL/uL Hemoglobin 15.4 14.0-18.0 g/dL Hematocrit 45.9 42-54 % Mean Corpuscular Volume 88.3 79-99 fL Mean Corpuscular Hemoglobin 29.6 27.0-33.0 pg Mean Corpuscular Hemoglobin Concent 33.6 32.0-36.0 g/dL Red Cell Distribution Width 13.7 11.0-15.5 % Platelet Count 214 130-400 K/uL Mean Platelet Volume 11.2 H 7.5-10.5 fL Immature Granulocyte % (Auto) 0.4 0-1 % Neutrophils (%) (Auto) 75.9 40.0-77.0 % Lymphocytes (%) (Auto) 14.2 L 21.0-51.0 % Monocytes (%) (Auto) 7.4 3.0-13.0 % Eosinophils (%) (Auto) 1.9 0.0-8.0 % Basophils (%) (Auto) 0.2 0.0-5.0 % Neutrophils # (Auto) 7.5 1.8-7.7 K/uL Lymphocytes # (Auto) 1.4 1.0-4.8 K/uL Monocytes # (Auto) 0.7 0.1-1.0 K/uL Eosinophils # (Auto) 0.19 0.00-0.70 K/uL Basophils # (Auto) 0.02 0.00-0.20 K/uL Absolute Immature Granulocyte (auto 0.04 0-1 K/uL Nucleated Red Blood Cells 0.0 0.0-0.19 % Erythrocyte Sedimentation Rate 74 H 0-20 MM/HR White Cell Morphology Comment See comments Chemistry Labs: Test 04/04/25 05:50 04/04/25 04:41 04/03/25 16:00 04/03/25 14:09 Range/Units Whole Blood Glucose 159 #H 70-110 MG/DL Sodium Level 136 136-145 mmol/L Potassium Level 4.2 3.5-5.1 mmol/L Chloride Level 103 101-111 mmol/L Carbon Dioxide Level 27 21-32 mmol/L Blood Urea Nitrogen 20 H 7-18 mg/dL Creatinine 1.4 H 0.5-1.3 mg/dL Glomerular Filtration Rate Calc 56 >90 mL/min Random Glucose 142 H 70-105 mg/dL Total Calcium 8.6 8.5-10.1 mg/dL Bedside Glucose Comment Notified Nurse C-Reactive Protein, Quantitative 77.80 H 0.5-3.0 mg/L Test 04/02/25 18:03 Range/Units Lactic Acid Level 1.1 0.8-2.5 mmol/L DIAGNOSTICS / RADIOLOGY RESULTS: [ ] PLAN NEURO: Minimize central acting medications as possible. Maintain fall precautions, adequate lighting during the day PULMONARY: Supplemental 02 as needed. Maintain aspiration precautions at all times CARDIOVASCULAR: Follow hemodynamics. Vital signs per facility protocol GI & NUTRITION: Continue with nutritional support. Continue stool softeners and laxatives as needed. KIDNEYS & ELECTROLYTES: Strict monitoring of intake, output and overall fluid balance. Avoid nephrotoxic medications to the extent possible. Medications to be dosed according to renal function. Monitor electrolytes and replace as needed ENDOCRINE: Maintain blood glucose between 100-180 at all times. Hypoglycemia protocol in place INFECTIOUS DISEASE: Trend temperature, WBC and procalcitonin level Follow cultures, deescalate antibiotics as soon as possible. Panculture if new onset fever ONCOLOGY/HEMATOLOGY/COAGULATION: Monitor for s/s of bleeding Monitor hemoglobin, coagulation studies as needed SKIN: Pressure ulcer prevention per facility protocol Specialty mattress ORTHO/REHAB: Continue PT/OT Prophylaxis: Continue GI and DVT prophylaxis Code Status: Full Resuscitation Disposition: TBKAI LOPEZ PAC Apr 04, 2025 09:45
--- NOTE | 2025-04-04 10:10 | CONS ---
CONSULTATION NOTE Date of Service: Apr 03, 2025 Reason for Consultation: This 64 years old male well-known to me was seen for consultation courtesy of Dr. Beckham for evaluation of ulceration to his great toe left foot. Patient presents to the hospital and in the secondary infected ulcer and diabetic foot Infection left. Requesting Physician: Dr. Beckham HISTORY OF PRESENT ILLNESS: Patient with chronic diabetes diabetic polyneuropathy arthritic deformities of the feet secondary to arthropathy due to diabetes history of amputated toes. History of chronic ulcers on and off due to neuropathy. At this time stated that his pain ambulating developed this ulceration [place] so he is active most of the time on his feet. REVIEW OF SYSTEMS CONSTITUTIONAL: Denies fever, chills, or fatigue. HEAD/FACE: No signs of trauma. EENT: Denies eye pain, blurred vision, double vision, or light sensitivity. RESPIRATORY: Denies shortness of breath, cough, wheezing CARDIOVASCULAR: Denies chest pain, palpitation, syncope GASTROINTESTINAL/ABDOMINAL: Denies abdominal pain, constipation, diarrhea, nausea or vomiting GENITOURINARY: Denies dysuria or hematuria. MUSCULOSKELETAL: Denies joint pain, tenderness, or trauma. INTEGUMENTARY: Great toe ulcer left foot with cellulitis and diabetic foot infection NEUROLOGICAL/PSYCH: Denies anxiety, depression, heat or cold intolerance. PAST MEDICAL HISTORY: Diabetes peripheral vascular disease neuropathy secondary to this diabetes. History amputation of the foot. Toes. PAST SURGICAL HISTORY: Amputated toes and foot PAST SOCIAL HISTORY: Denies any drinking using illicit drugs or alcohol or Smoking. FAMILY HISTORY: Noncontributory Coded Allergies: No Known Drug Allergies (Unverified Allergy, Unknown, 04/26/22) PHYSICAL EXAM EYES: Anicteric. Pupils equal and reactive. HENT: No oral thrush seen, moist Oral mucosa NECK: Supple, no JVD or thyromegaly. LUNGS: Good air entry. No rales, no rhonchi. CARDIOVASCULAR: S1, S2 regular. No murmur heard. ABDOMEN: Soft, non tender, bowel sounds present, no organomegaly CENTRAL NERVOUS SYSTEM: Awake, alert, oriented x 3. No focal deficits. SKIN: Ulceration hallux left with cellulitis of the foot left. LYMPHATICS: No peripheral lymphadenopathy MUSCULOSKELETAL: No joint swelling, erythema or tenderness. EXTREMITIES: Arthropathies hallux limitus and neuropathy on feet bilateral BACK: No deformity, no pressure ulcer. GENITOURINARY: No dysuria or hematuria Vital Sign (Last 24 Hours) 04/03/25 04/04/25 20:00 08:00 Temp 98.1 Pulse 72 Resp 18 B/P (MAP) 138/73 Pulse Ox 98 O2 Delivery Room Air O2 Flow Rate 0 FiO2 21 Intake & Output (last 24hrs) 04/03/25 04/03/25 04/04/25 15:00 23:00 07:00 Intake Total 1050.0 ml Balance 1050.0 ml LABS: Laboratory: Test 04/04/25 05:50 04/04/25 04:41 04/03/25 16:00 04/03/25 14:09 Range/Units Whole Blood Glucose 159 #H 70-110 MG/DL White Blood Count 9.9 4.8-10.8 K/uL Red Blood Count 5.20 4.50-6.20 MIL/uL Hemoglobin 15.4 14.0-18.0 g/dL Hematocrit 45.9 42-54 % Mean Corpuscular Volume 88.3 79-99 fL Mean Corpuscular Hemoglobin 29.6 27.0-33.0 pg Mean Corpuscular Hemoglobin Concent 33.6 32.0-36.0 g/dL Red Cell Distribution Width 13.7 11.0-15.5 % Platelet Count 214 130-400 K/uL Mean Platelet Volume 11.2 H 7.5-10.5 fL Immature Granulocyte % (Auto) 0.4 0-1 % Neutrophils (%) (Auto) 75.9 40.0-77.0 % Lymphocytes (%) (Auto) 14.2 L 21.0-51.0 % Monocytes (%) (Auto) 7.4 3.0-13.0 % Eosinophils (%) (Auto) 1.9 0.0-8.0 % Basophils (%) (Auto) 0.2 0.0-5.0 % Neutrophils # (Auto) 7.5 1.8-7.7 K/uL Lymphocytes # (Auto) 1.4 1.0-4.8 K/uL Monocytes # (Auto) 0.7 0.1-1.0 K/uL Eosinophils # (Auto) 0.19 0.00-0.70 K/uL Basophils # (Auto) 0.02 0.00-0.20 K/uL Absolute Immature Granulocyte (auto 0.04 0-1 K/uL Nucleated Red Blood Cells 0.0 0.0-0.19 % Sodium Level 136 136-145 mmol/L Potassium Level 4.2 3.5-5.1 mmol/L Chloride Level 103 101-111 mmol/L Carbon Dioxide Level 27 21-32 mmol/L Blood Urea Nitrogen 20 H 7-18 mg/dL Creatinine 1.4 H 0.5-1.3 mg/dL Glomerular Filtration Rate Calc 56 >90 mL/min Random Glucose 142 H 70-105 mg/dL Total Calcium 8.6 8.5-10.1 mg/dL Bedside Glucose Comment Notified Nurse Erythrocyte Sedimentation Rate 74 H 0-20 MM/HR C-Reactive Protein, Quantitative 77.80 H 0.5-3.0 mg/L Test 04/02/25 18:03 04/02/25 14:16 Range/Units Lactic Acid Level 1.1 0.8-2.5 mmol/L White Cell Morphology Comment See comments DIAGNOSTICS / RADIOLOGY: [ ] ASSESSMENT: Infected diabetic ulcer left hallux Diabetic polyneuropathy Hallux limitus Diabetic arthropathy PLAN: Bedside ulcer debridement cultures and sensitivity were taken continued IV antibiotics cleansed with Betadine application of Xeroform dressing on a daily basis and we will follow up during the course of treatment. CORINNA JENKINS DPM Apr 04, 2025 10:09
--- NOTE | 2025-04-04 10:44 | HMCIMG ---
EXAM: MR left Lower Extremity Without IV contrast, Foot. CLINICAL HISTORY: Rule out osteomyelitis in the setting of great toe ulcer and recent trauma. TECHNIQUE: Multisequence, multiplanar magnetic resonance images of the left foot were obtained without intravenous contrast. CONTRAST: None. COMPARISON: Prior left foot radiographs (report describing great toe soft tissue gas and second metatarsal amputation deformity). FINDINGS: BONES: There is cortical rarefaction with underlying marrow edema involving the ventromedial distal articular margin of the proximal phalanx of the great toe, deep to a plantar soft tissue ulcer. There is additional cortical rarefaction and marrow edema involving the proximal articular margin of the distal phalanx of the great toe. These changes extend across the interphalangeal joint, which is disorganized and laterally subluxed, and are in keeping with osteomyelitis involving both sides of the interphalangeal joint. The second toe has been amputated at approximately the midsecond metatarsal level, with no abnormal marrow edema or erosion at the amputation margin to suggest active osteomyelitis. JOINTS AND CARTILAGE: The interphalangeal joint of the great toe is widened, disorganized, and laterally displaced with joint effusion and adjacent cortical/marrow changes, compatible with early septic arthritis in continuity with the adjacent osteomyelitis. The remaining visualized joints demonstrate preserved alignment and no high-grade chondral loss. SOFT TISSUES AND MUSCLES: There is a plantar soft tissue ulcer underlying the distal articular margin of the proximal phalanx of the great toe, with surrounding soft tissue edema. An ill-defined fluid collection measuring approximately 2.3 x 1.5 cm is present in the plantar soft tissues deep to the ulcer and adjacent to the distal articular surface of the proximal phalanx, compatible with an evolving abscess/phlegmon. No deep intramuscular abscess is identified. The intrinsic foot muscles otherwise show nonspecific edema without focal mass. TENDONS, LIGAMENTS, TARSAL TUNNEL, SINUS TARSI, PLANTAR FASCIA: Visualized tendons, ligaments, tarsal tunnel contents, sinus tarsi, and plantar fascia are grossly intact without tear. IMPRESSION: * Osteomyelitis involving the distal articular margin of the proximal phalanx and the proximal articular margin of the distal phalanx of the great toe, centered about the interphalangeal joint and deep to a plantar ulcer, with associated joint disorganization, effusion, and cortical rarefaction consistent with early septic arthritis of the great toe interphalangeal joint. * Ill-defined 2.3 x 1.5 cm fluid collection in the plantar soft tissues deep to the great toe ulcer, compatible with evolving abscess/phlegmon. * Status post second toe amputation at the midsecond metatarsal level without MR evidence of active osteomyelitis at the amputation stump. /[place]
--- NOTE | 2025-04-04 21:01 | CONS ---
Presents with nonhealing ulcer in his left great toe and MRI today shows osteomyelitis at the metacarpal phalangeal joint. Doppler studies demonstrate monophasic flow [id number] in both vessels. I saw the patient in January but he has not been seen in follow up. At that time we were also addressing the wound but we wanted to get more information because he had a confusing history that he gave from various other places he had presented including [facility]. He thought he may have coronary disease and we were not clear about ventricular function so we ordered some lab and a CT calcium score; I do not know if that test has ever been done yet. Past medical history is remarkable for hypertension with a possible presentation at [facility] with accelerated hypertension, and he says he had an MRI that disproved a suspected stroke at that time. That was apparently within the last year. In addition the patient has sciatica, peripheral vascular disease, blindness in his left eye, chronic pain syndrome related to sciatica that is treated and a pain center, diabetes and hypertension. Review of systems is negative for syncope or presyncope, chest pain or dyspnea, orthopnea or paroxysmal nocturnal dyspnea, asthma or wheezing, cough, ulcers or GI bleeding, anemia or bruising or bleeding tendencies, stroke or TIA or seizure, and the patient denies claudication although he has ischemic ulcer on his foot. Skin is notable primarily for the ulcer. Patient also does have hyperpigmentation and discoloration on both shins. Physical exam is notable for an obese patient with no JVD, no bruit, carotid volume is normal. Chest is clear with no rales or rhonchi or wheezes and respiration is nonlabored with no retractions or accessory muscle use. S1 and S2 are normal. No murmur or S3 noted. Abdomen is protuberant with normal bowel sounds. Extremities are notable for mild swelling of the left ankle and foot with left foot currently bandaged. HEENT is notable for cloudy conjunctiva on the left. Impression and plan: Patient has osteomyelitis and requires revascularization of the left lower extremity as well as amputation of the left great toe and possibly part of the metacarpal. We will confer with Podiatry regarding the best order a procedures, surgery 1st versus angiography 1st. Patient History: Cardiovascular disease MOTHER, Diabetes mellitus MOTHER, FATHER Hypertension MOTHER, FATHER Vitals/Labs Vital Signs Date Time Temp Pulse Resp B/P (MAP) Pulse Ox O2 Delivery O2 Flow Rate FiO2 04/04/25 20:00 98.1 74 19 160/73 95 Room Air 04/04/25 07:57 0 21 Laboratory Tests 04/04/25 04:41 Allergies: Coded Allergies: No Known Drug Allergies (Unverified Allergy, Unknown, 04/26/22) Medications Current Medications Clindamycin HCl/ Dextrose 50 ml @ 100 mls/hr Q8H STAT IV Last administered on 04/02/25at 15:23; Start 04/02/25 at 14:36; Stop 04/02/25 at 15:05; Status DC Vancomycin HCl 1 gm ONCE STAT IV Last administered on 04/02/25at 16:25; Start 04/02/25 at 15:46; Stop 04/02/25 at 15:50; Status DC Famotidine 20 mg DAILY@2100 PO Last administered on 04/03/25at 20:58; Start 04/02/25 at 21:00; Stop 05/02/25 at 20:59 Diphenhydramine HCl 25 mg Q4H PRN PO; Start 04/02/25 at 17:00; Stop 05/02/25 at 16:59 Diphenhydramine HCl 25 mg Q6H PRN IV; Start 04/02/25 at 17:00; Stop 05/02/25 at 16:59 Acetaminophen 650 mg Q6H PRN PO; Start 04/02/25 at 17:00; Stop 05/02/25 at 16:59 Acetaminophen 650 mg Q4H PRN PO; Start 04/02/25 at 17:00; Stop 05/02/25 at 16:59 Ondansetron HCl 4 mg Q6H PRN IV; Start 04/02/25 at 17:00; Stop 05/02/25 at 16:59 Zolpidem Tartrate 5 mg HS PRN PO; Start 04/02/25 at 17:00; Stop 05/02/25 at 16:59 Al Hydroxide/Mg Hydroxide 30 ml Q6H PRN PO; Start 04/02/25 at 17:00; Stop 05/02/25 at 16:59 Lactulose 20 gm BID PRN PO; Start 04/02/25 at 17:00; Stop 05/02/25 at 16:59 Nitroglycerin 0.4 mg PROTOCOL PRN SL; Start 04/02/25 at 17:00; Stop 05/02/25 at 16:59 Guaifenesin/ Dextromethorphan 10 ml Q4H PRN PO; Start 04/02/25 at 17:00; Stop 05/02/25 at 16:59 Guaifenesin 200 mg Q4H PRN PO; Start 04/02/25 at 17:00; Stop 05/02/25 at 16:59 Loperamide HCl 2 mg Q6H PRN PO; Start 04/02/25 at 17:00; Stop 05/02/25 at 16:59 Docusate Sodium 100 mg BID PRN PO; Start 04/02/25 at 17:00; Stop 05/02/25 at 16:59 Polyethylene Glycol 17 gm DAILY PRN PO; Start 04/02/25 at 17:00; Stop 05/02/25 at 16:59 Alprazolam 0.5 mg Q6H PRN PO Last administered on 04/03/25at 23:37; Start 04/02/25 at 17:00; Stop 05/02/25 at 16:59 Lidocaine HCl/Al Hydroxide/Mg Hydroxide/ Dicyclomine HCl 20ML OR AD MAALOX P... Q6H PRN PO; Start 04/02/25 at 17:00; Stop 05/02/25 at 16:59 Artificial Tears 1 drop Q2H PRN OP; Start 04/02/25 at 17:00; Stop 05/02/25 at 16:59 Benzocaine 1 each Q2H PRN MM; Start 04/02/25 at 17:00; Stop 05/02/25 at 16:59 Cefepime HCl 1 gm Q12H IVPB Last administered on 04/04/25at 07:58; Start 04/02/25 at 21:00; Stop 04/12/25 at 20:59 Vancomycin HCl 1 each AD IV; Start 04/02/25 at 21:00; Stop 04/16/25 at 20:59 Sodium Chloride 1,000 ml @ 100 mls/hr Q10H IV Last administered on 04/04/25at 03:03; Start 04/02/25 at 21:30; Stop 05/02/25 at 21:29 Vancomycin HCl 500 ml @ 250 mls/hr ONCE ONCE IV Last administered on 04/02/25at 22:48; Start 04/02/25 at 23:00; Stop 04/03/25 at 00:59; Status DC Vancomycin HCl 250 ml @ 125 mls/hr Q24H IV Last administered on 04/03/25at 21:07; Start 04/03/25 at 22:00; Stop 04/13/25 at 21:59 Atorvastatin Calcium 20 mg DAILY PO Last administered on 04/04/25at 07:57; Start 04/04/25 at 09:00; Stop 05/04/25 at 08:59 Clonidine HCl 0.1 mg DAILY PRN PO Last administered on 04/03/25at 10:18; Start 04/03/25 at 10:00; Stop 05/03/25 at 09:59 Lisinopril 40 mg DAILY PO Last administered on 04/04/25at 07:57; Start 04/04/25 at 09:00; Stop 05/04/25 at 08:59 Amlodipine Besylate 10 mg DAILY PO Last administered on 04/04/25at 07:57; Start 04/04/25 at 09:00; Stop 05/04/25 at 08:59 Hydralazine HCl 50 mg TID PO Last administered on 04/04/25at 14:26; Start 04/03/25 at 14:00; Stop 05/03/25 at 13:59 Insulin Glargine 10 units DAILY SQ Last administered on 04/04/25at 08:03; Start 04/04/25 at 09:00; Stop 05/04/25 at 08:59 Insulin Human Lispro INSULIN SLIDING SCAL... ACHS SQ Last administered on 04/04/25at 17:15; Start 04/03/25 at 16:30; Stop 05/03/25 at 16:29 Heparin Sodium (Porcine) 5,000 unit Q12H SQ Last administered on 04/04/25at 14:28; Start 04/03/25 at 15:00; Stop 05/03/25 at 14:59 RAFAEL SEVERINO MD Apr 04, 2025 21:01
[2025-04-05] VITALS (9 sets, daily range): BP systolic 145–191; BP diastolic 62–86; PULSE 66–83; RESP 17–20; TEMP 97.3–97.8; O2SAT 96
[2025-04-05 04:27] LABS: IMMATURE GRANULOCYTE ABSOLUTE 0.05 K/uL (0-1); NUCLEATED RED BLOOD CELLS 0.0 % (0.0-0.19); PLATELET COUNT (AUTO) 203 K/uL (130-400); RED BLOOD CELL COUNT(AUTO) 4.79 MIL/uL (4.50-6.20); RED CELL DISTRIBUTION WIDTH 13.5 % (11.0-15.5); WHITE BLOOD COUNT (AUTO) 7.9 K/uL (4.8-10.8)
[2025-04-05 04:48] LABS: CREATININE 1.3 mg/dL (0.5-1.3); GLOMERULAR FILTR. RATE CALC 61.0 mL/min (>90); GLUCOSE,RANDOM 186.0 mg/dL (70-105); SODIUM SERUM 137.0 mmol/L (136-145); UREA NITROGEN, BLOOD 17.0 mg/dL (7-18)
[2025-04-05] MEDS ORDERED: ARTIFICAL TEARS SOL 15 ML OP PRN (07:00)
--- NOTE | 2025-04-05 08:28 | PN ---
[facility] CARDIOLOGY PROGRESS NOTE Date Patient Seen: Apr 05, 2025 Time of Visit: 08:20 Interval History: [No acute events overnight. Renal function stable creatinine 1.3, arterial Dopplers revealed monophasic waveforms bilaterally. ] Physical Examination: EYES: Anicteric. Pupils equal and reactive. HENT: No oral thrush seen, moist Oral mucosa NECK: Supple, no JVD or thyromegaly. LUNGS: Good air entry. No rales, no rhonchi. CARDIOVASCULAR: S1, S2 regular. No murmur heard. ABDOMEN: Soft, non tender, bowel sounds present, no organomegaly CENTRAL NERVOUS SYSTEM: Awake, alert, oriented x 3. No focal deficits. SKIN: Ulceration hallux left with cellulitis of the foot left. LYMPHATICS: No peripheral lymphadenopathy MUSCULOSKELETAL: No joint swelling, erythema or tenderness. EXTREMITIES: Arthropathies hallux limitus and neuropathy on feet bilateral BACK: No deformity, no pressure ulcer. GENITOURINARY: No dysuria or hematuria Laboratory: [ ] Hematology Labs: Test 04/05/25 04:21 04/03/25 14:09 Range/Units White Blood Count 7.9 4.8-10.8 K/uL Red Blood Count 4.79 4.50-6.20 MIL/uL Hemoglobin 14.1 14.0-18.0 g/dL Hematocrit 42.4 42-54 % Mean Corpuscular Volume 88.5 79-99 fL Mean Corpuscular Hemoglobin 29.4 27.0-33.0 pg Mean Corpuscular Hemoglobin Concent 33.3 32.0-36.0 g/dL Red Cell Distribution Width 13.5 11.0-15.5 % Platelet Count 203 130-400 K/uL Mean Platelet Volume 11.0 H 7.5-10.5 fL Immature Granulocyte % (Auto) 0.6 0-1 % Neutrophils (%) (Auto) 69.1 40.0-77.0 % Lymphocytes (%) (Auto) 19.0 L 21.0-51.0 % Monocytes (%) (Auto) 8.4 3.0-13.0 % Eosinophils (%) (Auto) 2.4 0.0-8.0 % Basophils (%) (Auto) 0.5 0.0-5.0 % Neutrophils # (Auto) 5.4 1.8-7.7 K/uL Lymphocytes # (Auto) 1.5 1.0-4.8 K/uL Monocytes # (Auto) 0.7 0.1-1.0 K/uL Eosinophils # (Auto) 0.19 0.00-0.70 K/uL Basophils # (Auto) 0.04 0.00-0.20 K/uL Absolute Immature Granulocyte (auto 0.05 0-1 K/uL Nucleated Red Blood Cells 0.0 0.0-0.19 % Erythrocyte Sedimentation Rate 74 H 0-20 MM/HR Chemistry Labs: Test 04/05/25 05:25 04/05/25 04:21 04/03/25 16:00 04/03/25 14:09 Range/Units Whole Blood Glucose 197 H 70-110 MG/DL Sodium Level 137 136-145 mmol/L Potassium Level 3.6 3.5-5.1 mmol/L Chloride Level 105 101-111 mmol/L Carbon Dioxide Level 27 21-32 mmol/L Blood Urea Nitrogen 17 7-18 mg/dL Creatinine 1.3 0.5-1.3 mg/dL Glomerular Filtration Rate Calc 61 >90 mL/min Random Glucose 186 H 70-105 mg/dL Total Calcium 8.6 8.5-10.1 mg/dL Bedside Glucose Comment Notified Nurse C-Reactive Protein, Quantitative 77.80 H 0.5-3.0 mg/L Diagnostics / Radiology: [Copy/Paste Echos/Imaging Report here] Impression and Plan: [PAD-osteomyelitis left hallux Hypertension Diabetes mellitus 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 Continue aspirin 80 mg daily Lipitor 40 mg daily Prior to discharged with a consider low-dose Eliquis 2.5 mg every 12 hours Formal recommendations pending Podiatry and CTA results This consult cardiology to follow along Dell Turner MD ATTESTATION BY PHYSICIAN I have seen and examined the patient, reviewed the above documentation, participated in medical decision making, made necessary modifications, and agree with the treatment plan as documented by my mid-level provider above. MD SERGIO Bonilla JAMES R MD Apr 05, 2025 08:28
[2025-04-05] MEDS ORDERED: PoTASSium chl 10% ELIXIR 20MEQ 20 MEQ/15 ML UDCUP PO PRN (10:00)
[2025-04-05] MEDS: PoTASSium chloRIDE 20MEQ ER 20 MEQ ERTAB PO PRN (10:12)
--- NOTE | 2025-04-05 10:38 | NUR ---
BLOOD GLUCOSE BLOOD GLUCOSE: 191. REQUIRES 4U OF INSULIN. NOT GIVEN AT THIS TIME. PT IS NPO DUE TO PENDING CTA WITH RUN OFF. Addendum: 04/05/25 at 1937 by SRINIVASA HEATH LVN LVN WRONG TIME
--- NOTE | 2025-04-05 10:58 | NUR ---
BLOOD GLUCOSE BLOOD GLUCOSE: 191. REQUIRES 4U OF INSULIN. NOT GIVEN AT THIS TIME. PT IS NPO DUE TO PENDING CTA WITH RUN OFF.
--- NOTE | 2025-04-05 11:38 | PN ---
[facility] PROGRESS NOTE Date Patient Seen: Apr 05, 2025 Time of Visit: 11:30 Supervising Physician: [DR Tang Primary Care Physician: Joana Díaz Outpatient Specialists: [ ] Inpatient Consults: [Podiatry] PROBLEM LIST: Left great toe necrosis, s/p ID at bedside, MRI (+) osteomyelitis Chronic left foot wound, POA Acute kidney injury in chronic kidney disease, POA- resolved Hypertension, POA Hyperlipidemia, POA DM type 2, with hyperglycemia, POA History of left eye blindness Class two obesity, BMI of 35, POA Hyponatremia, POA PAD INTERVAL HISTORY: [64-year-old male with past medical history of DM type 2, hypertension, hyperlipidemia, chronic wound to left foot, who presented to ED via private vehicle with complaint of worsening left great toe swelling with increasing wound drainage and found to have nonhealing ulcer to great toe, possible gas gangrene, acute on chronic kidney disease, and leukocytosis. Patient was seen and examined in ED with no relatives present at bedside. Apparently patient has been having issues with blister-like formation on the left great toe, last Saturday patient hit a barrel, and afterwards developed worsening leg swelling and increasing drainage on that left foot. Apparently patient is getting care from a wound care nurse, was advised to come to ED for further medical evaluation. In ED CBC was done and showed WBC [place] more [place] [id number], chemistry showed creatinine level of 2.0, sodium level of 133. X-ray of the left foot showed soft tissue swelling of the great toe and forefoot with subcutaneous gas about the great toe including around the interphalangeal joint suspicious for gas- forming soft tissue infection. Patient was subsequently started on clindamycin and was given one dose of vancomycin. We will consult Podiatry in a.m. At present patient is currently hemodynamically stable, on room air with appropriate oxygen saturation, denies any headache, chest pain, shortness of breath, abdominal pain, fever, dysuria, or flu-like symptoms. Patient denies any smoking, alcohol intake, or illicit drug use.] 04/03 Patient is evaluated at bedside. He was just evaluated by podiatry, pending consult note. Patient states has had multiple surgeries in the past with Dr. Barton as well as Dr. Lowery. WBC is elevated, blood glucose and CRP are elevated. CXR cannot r/o osteomyelitis to L-foot. Blood culture is negative. He continues on cefepime and vancomycin. Patient underwent wound care by podiatry and deferred foot exam. 04/04 patient is evaluated at bedside. His vitals are within normal limits, afebrile overnight. Blood pressure is improved. Has been blood sugars improved on insulin regimen. WBC improved. He continues on cefepime and vancomycin for a diabetic foot ulcer. He had an I&D yesterday at bedside by Dr. Lowery, pending official consult note. Patient states we will have follow-up with podiatry on Saturday for further management. He did obtain an MRI and arterial Dopplers, pending results. 04/05 - patient is seen and evaluated at the bedside. Patient in bed resting quietly continues to complain of pain to his left foot. Dressing is dry and intact. Patient had an MRI of the left foot and results shows osteomyelitis involving the distal articular margin of the proximal phalanx and proximal articular margin of the distal phalanx of the great toe. Ill-defined 2.3 x 1.5 cm fluid collection in the plantar soft tissues deep in the great toe ulcer compatible with evolving abscess versus phlegmon. Patient continues on broad- spectrum antibiotics for now. Patient had arterial Dopplers and was found to have monophasic waveforms therefore Cardiology was consulted. Patient was evaluated by Cardiology and recommend bilateral lower extremity CTA with runoff to further delineate the patient's anatomy, morphology, characteristics. Continue aspirin and statin for now. Prior to discharge consider low-dose Eliquis 2.5 mg b.i.d.. We will continue current treatment plan for now. We will await CTA with runoff results and further recommendations from consultants. We will continue current wound care as per Podiatry. Patient will require at least 6 weeks of IV antibiotics. We will ask case management to refer patient to [facility]. PLAN: Supplemental oxygen as needed Continue cefepime Continue vancomycin Continue wound care as per Podiatry CTA with runoff as per Cardiology Treat fever aggressively Monitor temperature curve Avoid nephrotoxic agents Cm to refer to [facility] REVIEW OF SYSTEMS: 12 point ROS reviewed with patient. Pertinent positives mentioned above. Othe rwise negative. PHYSICAL EXAM: GENERAL: alert, weak, awake oriented x 3 HEENT: Left eye blindness NECK: Supple, no JVD, trachea midline LUNGS: Clear breath sounds bilaterally. No wheezes HEART: Regular rate and rhythm. Normal S1 and S2, without murmurs ABD: Abdomen soft, nontender. Bowel sounds present EXT: No clubbing cyanosis or edema, necrotic left great toe NEURO: Alert and oriented to person, follows commands Vital Signs (last 8hr) Date Time Temp Pulse Resp B/P (MAP) Pulse Ox O2 Delivery O2 Flow Rate FiO2 04/05/25 11:04 76 17 151/75 95 Room Air 04/05/25 09:10 160/65 04/05/25 08:04 176/78 04/05/25 08:00 176/78 04/05/25 07:57 97.3 77 17 191/78 94 Room Air 04/05/25 04:00 97.3 66 18 157/62 96 Room Air LABS: Hematology Labs: Test 04/05/25 04:21 04/03/25 14:09 Range/Units White Blood Count 7.9 4.8-10.8 K/uL Red Blood Count 4.79 4.50-6.20 MIL/uL Hemoglobin 14.1 14.0-18.0 g/dL Hematocrit 42.4 42-54 % Mean Corpuscular Volume 88.5 79-99 fL Mean Corpuscular Hemoglobin 29.4 27.0-33.0 pg Mean Corpuscular Hemoglobin Concent 33.3 32.0-36.0 g/dL Red Cell Distribution Width 13.5 11.0-15.5 % Platelet Count 203 130-400 K/uL Mean Platelet Volume 11.0 H 7.5-10.5 fL Immature Granulocyte % (Auto) 0.6 0-1 % Neutrophils (%) (Auto) 69.1 40.0-77.0 % Lymphocytes (%) (Auto) 19.0 L 21.0-51.0 % Monocytes (%) (Auto) 8.4 3.0-13.0 % Eosinophils (%) (Auto) 2.4 0.0-8.0 % Basophils (%) (Auto) 0.5 0.0-5.0 % Neutrophils # (Auto) 5.4 1.8-7.7 K/uL Lymphocytes # (Auto) 1.5 1.0-4.8 K/uL Monocytes # (Auto) 0.7 0.1-1.0 K/uL Eosinophils # (Auto) 0.19 0.00-0.70 K/uL Basophils # (Auto) 0.04 0.00-0.20 K/uL Absolute Immature Granulocyte (auto 0.05 0-1 K/uL Nucleated Red Blood Cells 0.0 0.0-0.19 % Erythrocyte Sedimentation Rate 74 H 0-20 MM/HR Chemistry Labs: Test 04/05/25 10:51 04/05/25 04:21 04/03/25 16:00 04/03/25 14:09 Range/Units Whole Blood Glucose 191 H 70-110 MG/DL Sodium Level 137 136-145 mmol/L Potassium Level 3.6 3.5-5.1 mmol/L Chloride Level 105 101-111 mmol/L Carbon Dioxide Level 27 21-32 mmol/L Blood Urea Nitrogen 17 7-18 mg/dL Creatinine 1.3 0.5-1.3 mg/dL Glomerular Filtration Rate Calc 61 >90 mL/min Random Glucose 186 H 70-105 mg/dL Total Calcium 8.6 8.5-10.1 mg/dL Bedside Glucose Comment Notified Nurse C-Reactive Protein, Quantitative 77.80 H 0.5-3.0 mg/L DIAGNOSTICS / RADIOLOGY RESULTS: [ PATIENT: REN MCLEOD MR#: [id number] : 1960 SEX: M AGE: 64 LOCATION: [facility] ORDER 38 STATUS: ADM IN REPORT#: [id number] SERVICE 33 REASON: r/o osteomyelitis ORDERING PHYSICIAN: KAI MUKHERJEE PAC PROCEDURE: FT WO - MR FOOT LEFT WO ADDENDUM REPORT ADDENDUM: Results were shared by telephone at 12:45 PM EST on 04-04-2025 and acknowledged by Patient Nurse , Ms. Mariposa Santana /[place] EXAM: MR left Lower Extremity Without IV contrast, Foot. CLINICAL HISTORY: Rule out osteomyelitis in the setting of great toe ulcer and recent trauma. TECHNIQUE: Multisequence, multiplanar magnetic resonance images of the left foot were obtained without intravenous contrast. CONTRAST: None. COMPARISON: Prior left foot radiographs (report describing great toe soft tissue gas and second metatarsal amputation deformity). FINDINGS: BONES: There is cortical rarefaction with underlying marrow edema involving the ventromedial distal articular margin of the proximal phalanx of the great toe, deep to a plantar soft tissue ulcer. There is additional cortical rarefaction and marrow edema involving the proximal articular margin of the distal phalanx of the great toe. These changes extend across the interphalangeal joint, which is disorganized and laterally subluxed, and are in keeping with osteomyelitis involving both sides of the interphalangeal joint. The second toe has been amputated at approximately the midsecond metatarsal level, with no abnormal marrow edema or erosion at the amputation margin to suggest active osteomyelitis. JOINTS AND CARTILAGE: The interphalangeal joint of the great toe is widened, disorganized, and laterally displaced with joint effusion and adjacent cortical/marrow changes, compatible with early septic arthritis in continuity with the adjacent osteomyelitis. The remaining visualized joints demonstrate preserved alignment and no high-grade chondral loss. SOFT TISSUES AND MUSCLES: There is a plantar soft tissue ulcer underlying the distal articular margin of the proximal phalanx of the great toe, with surrounding soft tissue edema. An ill-defined fluid collection measuring approximately 2.3 x 1.5 cm is present in the plantar soft tissues deep to the ulcer and adjacent to the distal articular surface of the proximal phalanx, compatible with an evolving abscess/phlegmon. No deep intramuscular abscess is identified. The intrinsic foot muscles otherwise show nonspecific edema without focal mass. TENDONS, LIGAMENTS, TARSAL TUNNEL, SINUS TARSI, PLANTAR FASCIA: Visualized tendons, ligaments, tarsal tunnel contents, sinus tarsi, and plantar fascia are grossly intact without tear. IMPRESSION: * Osteomyelitis involving the distal articular margin of the proximal phalanx and the proximal articular margin of the distal phalanx of the great toe, centered about the interphalangeal joint and deep to a plantar ulcer, with associated joint disorganization, effusion, and cortical rarefaction consistent with early septic arthritis of the great toe interphalangeal joint. * Ill-defined 2.3 x 1.5 cm fluid collection in the plantar soft tissues deep to the great toe ulcer, compatible with evolving abscess/phlegmon. * Status post second toe amputation at the midsecond metatarsal level without MR evidence of active osteomyelitis at the amputation stump. /[place] DICTATED BY: DAVID GUDINO MD DATE: 04/04/25 1252 ELECTRONICALLY SIGNED BY: DATE: EXAM: MR left Lower Extremity Without IV contrast, Foot. CLINICAL HISTORY: Rule out osteomyelitis in the setting of great toe ulcer and recent trauma. TECHNIQUE: Multisequence, multiplanar magnetic resonance images of the left foot were obtained without intravenous contrast. CONTRAST: None. COMPARISON: Prior left foot radiographs (report describing great toe soft tissue gas and second metatarsal amputation deformity). FINDINGS: BONES: There is cortical rarefaction with underlying marrow edema involving the ventromedial distal articular margin of the proximal phalanx of the great toe, deep to a plantar soft tissue ulcer. There is additional cortical rarefaction and marrow edema involving the proximal articular margin of the distal phalanx of the great toe. These changes extend across the interphalangeal joint, which is disorganized and laterally subluxed, and are in keeping with osteomyelitis involving both sides of the interphalangeal joint. The second toe has been amputated at approximately the midsecond metatarsal level, with no abnormal marrow edema or erosion at the amputation margin to suggest active osteomyelitis. JOINTS AND CARTILAGE: The interphalangeal joint of the great toe is widened, disorganized, and laterally displaced with joint effusion and adjacent cortical/marrow changes, compatible with early septic arthritis in continuity with the adjacent osteomyelitis. The remaining visualized joints demonstrate preserved alignment and no high-grade chondral loss. SOFT TISSUES AND MUSCLES: There is a plantar soft tissue ulcer underlying the distal articular margin of the proximal phalanx of the great toe, with surrounding soft tissue edema. An ill-defined fluid collection measuring approximately 2.3 x 1.5 cm is present in the plantar soft tissues deep to the ulcer and adjacent to the distal articular surface of the proximal phalanx, compatible with an evolving abscess/phlegmon. No deep intramuscular abscess is identified. The intrinsic foot muscles otherwise show nonspecific edema without focal mass. TENDONS, LIGAMENTS, TARSAL TUNNEL, SINUS TARSI, PLANTAR FASCIA: Visualized tendons, ligaments, tarsal tunnel contents, sinus tarsi, and plantar fascia are grossly intact without tear. IMPRESSION: * Osteomyelitis involving the distal articular margin of the proximal phalanx and the proximal articular margin of the distal phalanx of the great toe, centered about the interphalangeal joint and deep to a plantar ulcer, with associated joint disorganization, effusion, and cortical rarefaction consistent with early septic arthritis of the great toe interphalangeal joint. * Ill-defined 2.3 x 1.5 cm fluid collection in the plantar soft tissues deep to the great toe ulcer, compatible with evolving abscess/phlegmon. * Status post second toe amputation at the midsecond metatarsal level without MR evidence of active osteomyelitis at the amputation stump. /[place] DICTATED BY: DAVID GUDINO MD DATE: 04/04/25 114 ELECTRONICALLY SIGNED BY: DAVID GUDINO MD DATE: 04/04/25 114 PLAN NEURO: Minimize central acting medications as possible. Maintain fall precautions, adequate lighting during the day PULMONARY: Supplemental 02 as needed. Maintain aspiration precautions at all times CARDIOVASCULAR: Follow hemodynamics. Vital signs per facility protocol GI & NUTRITION: Continue with nutritional support. Continue stool softeners and laxatives as needed. KIDNEYS & ELECTROLYTES: Strict monitoring of intake, output and overall fluid balance. Avoid nephrotoxic medications to the extent possible. Medications to be dosed according to renal function. Monitor electrolytes and replace as needed ENDOCRINE: Maintain blood glucose between 100-180 at all times. Hypoglycemia protocol in place INFECTIOUS DISEASE: Trend temperature, WBC and procalcitonin level Follow cultures, deescalate antibiotics as soon as possible. Panculture if new onset fever ONCOLOGY/HEMATOLOGY/COAGULATION: Monitor for s/s of bleeding Monitor hemoglobin, coagulation studies as needed SKIN: Pressure ulcer prevention per facility protocol Specialty mattress ORTHO/REHAB: Continue PT/OT Prophylaxis: Continue GI and DVT prophylaxis Code Status: Full Resuscitation Disposition: LTAC ATTESTATION BY PHYSICIAN I have evaluated the patient chart, medical records, and spoke with appropriate staff. I reviewed the documentation, medical decision making, and treatment plan as noted by the mid-level provider above. I agree with the findings and plan of care. Delano Tang MD, ECTOR N FNP Apr 05, 2025 11:38
[2025-04-05] MEDS ORDERED: IOHEXOL-350 75 ML VIAL IV ONE (14:19)
--- NOTE | 2025-04-05 15:42 | NUR ---
[facility] Consult: Patient assessed by wound healing team. See wound assessment. Assessment and recommendations provided to primary nurse. Education provided to patient. Wound care done.
--- NOTE | 2025-04-05 16:43 | PN ---
PROGRESS NOTE Date of Service: Apr 05, 2025 Time of Service: 16:39 SUBJECTIVE: This 64 years old male status post incision and drainage abscess to the hallux left the patient will ulcer was noted to be healing well decreased edema decreased erythema some remaining cellulitis of the dorsal aspect of the foot MRI studies were reviewed contributory for chronic changes either for osteomyelitis or diabetic osteoarthropathies. REVIEW OF SYSTEMS CONSTITUTIONAL: Denies fever, chills, or fatigue. HEAD/FACE: No signs of trauma. EENT: Denies eye pain, blurred vision, double vision, or light sensitivity. RESPIRATORY: Denies shortness of breath, cough, wheezing CARDIOVASCULAR: Denies chest pain, palpitation, syncope GASTROINTESTINAL/ABDOMINAL: Denies abdominal pain, constipation, diarrhea, nausea or vomiting GENITOURINARY: Denies dysuria or hematuria. MUSCULOSKELETAL: Denies joint pain, tenderness, or trauma. INTEGUMENTARY: Great toe ulcer left foot with cellulitis and diabetic foot infection NEUROLOGICAL/PSYCH: Denies anxiety, depression, heat or cold intolerance. PHYSICAL EXAM EYES: Anicteric. Pupils equal and reactive. HENT: No oral thrush seen, moist Oral mucosa NECK: Supple, no JVD or thyromegaly. LUNGS: Good air entry. No rales, no rhonchi. CARDIOVASCULAR: S1, S2 regular. No murmur heard. ABDOMEN: Soft, non tender, bowel sounds present, no organomegaly CENTRAL NERVOUS SYSTEM: Awake, alert, oriented x 3. No focal deficits. SKIN: Ulceration hallux left with cellulitis of the foot left. LYMPHATICS: No peripheral lymphadenopathy MUSCULOSKELETAL: No joint swelling, erythema or tenderness. EXTREMITIES: Arthropathies hallux limitus and neuropathy on feet bilateral BACK: No deformity, no pressure ulcer. GENITOURINARY: No dysuria or hematuria Vital Signs (last 8hr) Date Time Temp Pulse Resp B/P (MAP) Pulse Ox O2 Delivery O2 Flow Rate FiO2 04/05/25 15:50 83 17 157/78 95 Room Air 04/05/25 13:18 151/75 04/05/25 11:04 76 17 151/75 95 Room Air 04/05/25 09:10 160/65 LABS: Laboratory: Test 04/05/25 15:13 04/05/25 04:21 Range/Units Whole Blood Glucose 191 H 70-110 MG/DL White Blood Count 7.9 4.8-10.8 K/uL Red Blood Count 4.79 4.50-6.20 MIL/uL Hemoglobin 14.1 14.0-18.0 g/dL Hematocrit 42.4 42-54 % Mean Corpuscular Volume 88.5 79-99 fL Mean Corpuscular Hemoglobin 29.4 27.0-33.0 pg Mean Corpuscular Hemoglobin Concent 33.3 32.0-36.0 g/dL Red Cell Distribution Width 13.5 11.0-15.5 % Platelet Count 203 130-400 K/uL Mean Platelet Volume 11.0 H 7.5-10.5 fL Immature Granulocyte % (Auto) 0.6 0-1 % Neutrophils (%) (Auto) 69.1 40.0-77.0 % Lymphocytes (%) (Auto) 19.0 L 21.0-51.0 % Monocytes (%) (Auto) 8.4 3.0-13.0 % Eosinophils (%) (Auto) 2.4 0.0-8.0 % Basophils (%) (Auto) 0.5 0.0-5.0 % Neutrophils # (Auto) 5.4 1.8-7.7 K/uL Lymphocytes # (Auto) 1.5 1.0-4.8 K/uL Monocytes # (Auto) 0.7 0.1-1.0 K/uL Eosinophils # (Auto) 0.19 0.00-0.70 K/uL Basophils # (Auto) 0.04 0.00-0.20 K/uL Absolute Immature Granulocyte (auto 0.05 0-1 K/uL Nucleated Red Blood Cells 0.0 0.0-0.19 % Sodium Level 137 136-145 mmol/L Potassium Level 3.6 3.5-5.1 mmol/L Chloride Level 105 101-111 mmol/L Carbon Dioxide Level 27 21-32 mmol/L Blood Urea Nitrogen 17 7-18 mg/dL Creatinine 1.3 0.5-1.3 mg/dL Glomerular Filtration Rate Calc 61 >90 mL/min Random Glucose 186 H 70-105 mg/dL Total Calcium 8.6 8.5-10.1 mg/dL DIAGNOSTICS / RADIOLOGY: [ ] ASSESSMENT: Infected diabetic ulcer left hallux Diabetic polyneuropathy Hallux limitus Diabetic arthropathy PLAN: Continue local wound care at this time continued IV antibiotics pending final results of the cultures and sensitivity so far Staphylococcus infection on culture sensitivities are still pending. CT angio has been ordered. This is to address his circulatory issues. Continued in the meanwhile local wound care continue with the IV antibiotics until further identification of the organism can be done. Patient can be follow up at the [facility] for antibiotics local wound care possible hyperbaric treatment attempt to salvage the hallux patient at this moment does not want amputation. CORINNA JENKINS DPM Apr 05, 2025 16:42
[2025-04-06] VITALS (8 sets, daily range): BP systolic 140–164; BP diastolic 75–82; PULSE 62–83; RESP 18–20; TEMP 97.5–98.2; O2SAT 97–98
[2025-04-06 04:38] LABS: NUCLEATED RED BLOOD CELLS 0.0 % (0.0-0.19); PLATELET COUNT (AUTO) 212.0 K/uL (130-400); RED BLOOD CELL COUNT(AUTO) 4.84 MIL/uL (4.50-6.20); RED CELL DISTRIBUTION WIDTH 13.5 % (11.0-15.5); WHITE BLOOD COUNT (AUTO) 8.2 K/uL (4.8-10.8)
[2025-04-06 04:48] LABS: CREATININE 1.3 mg/dL (0.5-1.3); GLOMERULAR FILTR. RATE CALC 61.0 mL/min (>90); GLUCOSE,RANDOM 277.0 mg/dL (70-105); SODIUM SERUM 137.0 mmol/L (136-145); UREA NITROGEN, BLOOD 16.0 mg/dL (7-18)
--- NOTE | 2025-04-06 09:43 | PN ---
[facility] PROGRESS NOTE Date Patient Seen: Apr 06, 2025 Time of Visit: 09:42 Supervising Physician: Dr. Diaz Greenberg Primary Care Physician: Dr. Joana Díaz Outpatient Specialists: [ ] Inpatient Consults: Dr. Juan Luis Lowery (DP), Dr Dell Turner (Cardiology, [facility]) PROBLEM LIST: Left great toe necrosis, s/p ID at bedside, MRI (+) osteomyelitis Chronic left foot wound, POA Acute kidney injury in chronic kidney disease, POA- resolved Hypertension, POA Hyperlipidemia, POA DM type 2, with hyperglycemia, POA History of left eye blindness Class two obesity, BMI of 35, POA Hyponatremia, POA PAD INTERVAL HISTORY: [64-year-old male with past medical history of DM type 2, hypertension, hyperlipidemia, chronic wound to left foot, who presented to ED via private vehicle with complaint of worsening left great toe swelling with increasing wound drainage and found to have nonhealing ulcer to great toe, possible gas gangrene, acute on chronic kidney disease, and leukocytosis. Patient was seen and examined in ED with no relatives present at bedside. Apparently patient has been having issues with blister-like formation on the left great toe, last Saturday patient hit a barrel, and afterwards developed worsening leg swelling and increasing drainage on that left foot. Apparently patient is getting care from a wound care nurse, was advised to come to ED for further medical evaluation. In ED CBC was done and showed WBC [place] more [place] 11561, chemistry showed creatinine level of 2.0, sodium level of 133. X-ray of the left foot showed soft tissue swelling of the great toe and forefoot with subcutaneous gas about the great toe including around the interphalangeal joint suspicious for gas- forming soft tissue infection. Patient was subsequently started on clindamycin and was given one dose of vancomycin. We will consult Podiatry in a.m. At present patient is currently hemodynamically stable, on room air with appropriate oxygen saturation, denies any headache, chest pain, shortness of breath, abdominal pain, fever, dysuria, or flu-like symptoms. Patient denies any smoking, alcohol intake, or illicit drug use.] 04/03 Patient is evaluated at bedside. He was just evaluated by podiatry, pending consult note. Patient states has had multiple surgeries in the past with Dr. Barton as well as Dr. Lowery. WBC is elevated, blood glucose and CRP are elevated. CXR cannot r/o osteomyelitis to L-foot. Blood culture is negative. He continues on cefepime and vancomycin. Patient underwent wound care by podiatry and deferred foot exam. 04/04 patient is evaluated at bedside. His vitals are within normal limits, afebrile overnight. Blood pressure is improved. Has been blood sugars improved on insulin regimen. WBC improved. He continues on cefepime and vancomycin for a diabetic foot ulcer. He had an I&D yesterday at bedside by Dr. Lowery, pending official consult note. Patient states we will have follow-up with podiatry on Saturday for further management. He did obtain an MRI and arterial Dopplers, pending results. 04/05 - patient is seen and evaluated at the bedside. Patient in bed resting quietly continues to complain of pain to his left foot. Dressing is dry and intact. Patient had an MRI of the left foot and results shows osteomyelitis involving the distal articular margin of the proximal phalanx and proximal articular margin of the distal phalanx of the great toe. Ill-defined 2.3 x 1.5 cm fluid collection in the plantar soft tissues deep in the great toe ulcer compatible with evolving abscess versus phlegmon. Patient continues on broad- spectrum antibiotics for now. Patient had arterial Dopplers and was found to have monophasic waveforms therefore Cardiology was consulted. Patient was evaluated by Cardiology and recommend bilateral lower extremity CTA with runoff to further delineate the patient's anatomy, morphology, characteristics. Continue aspirin and statin for now. Prior to discharge consider low-dose Eliquis 2.5 mg b.i.d.. We will continue current treatment plan for now. We will await CTA with runoff results and further recommendations from consultants. We will continue current wound care as per Podiatry. Patient will require at least 6 weeks of IV antibiotics. We will ask case management to refer patient to [facility]. 04/06- Assessed and examined the patient resting in bed with head of bed elevated watching television friendly and conversant accompanied by patient's bedside nurse, appears in no acute distress, awake alert and oriented. Nursing staff report no adverse events occurring overnight. Vital signs stable. Afebrile. Case management requested to assist patient will require six weeks of IV antibiotic therapy upon discharge. Last Infectious Disease specialists for recommendations. Awaiting results from CT abdominal angiogram with runoff. We will continue IV antibiotic therapy under the guidance of Infectious Disease specialists. Reviewed and discussed with patient laboratory results vital signs. Wound care we will be managed by Podiatry which will continue. Patient is an excellent candidate for a long-term acute care facility, LTAC case management to assist with placement. Further orders per course of stay. A.m. labs ordered. PLAN: Supplemental oxygen as needed Continue cefepime Continue vancomycin Continue wound care as per Podiatry CTA with runoff as per Cardiology Treat fever aggressively Monitor temperature curve Avoid nephrotoxic agents Cm to refer to [facility] REVIEW OF SYSTEMS: 12 point ROS reviewed with patient. Pertinent positives mentioned above. Otherwise negative. PHYSICAL EXAM: GENERAL: alert, weak, awake oriented x 3 HEENT: Left eye blindness NECK: Supple, no JVD, trachea midline LUNGS: Clear breath sounds bilaterally. No wheezes HEART: Regular rate and rhythm. Normal S1 and S2, without murmurs ABD: Abdomen soft, nontender. Bowel sounds present EXT: No clubbing cyanosis or edema, necrotic left great toe NEURO: Alert and oriented to person, follows commands Vital Signs (last 8hr) Date Time Temp Pulse Resp B/P (MAP) Pulse Ox O2 Delivery O2 Flow Rate FiO2 04/06/25 08:47 70 161/78 04/06/25 08:18 98.1 70 18 /78 98 Room Air 04/06/25 04:00 97.9 62 18 155/78 96 Room Air LABS: Hematology Labs: Test 04/06/25 04:18 04/05/25 04:21 Range/Units White Blood Count 8.2 4.8-10.8 K/uL Red Blood Count 4.84 4.50-6.20 MIL/uL Hemoglobin 14.3 14.0-18.0 g/dL Hematocrit 43.3 42-54 % Mean Corpuscular Volume 89.5 79-99 fL Mean Corpuscular Hemoglobin 29.5 27.0-33.0 pg Mean Corpuscular Hemoglobin Concent 33.0 32.0-36.0 g/dL Red Cell Distribution Width 13.5 11.0-15.5 % Platelet Count 212 130-400 K/uL Mean Platelet Volume 10.8 H 7.5-10.5 fL Nucleated Red Blood Cells 0.0 0.0-0.19 % Immature Granulocyte % (Auto) 0.6 0-1 % Neutrophils (%) (Auto) 69.1 40.0-77.0 % Lymphocytes (%) (Auto) 19.0 L 21.0-51.0 % Monocytes (%) (Auto) 8.4 3.0-13.0 % Eosinophils (%) (Auto) 2.4 0.0-8.0 % Basophils (%) (Auto) 0.5 0.0-5.0 % Neutrophils # (Auto) 5.4 1.8-7.7 K/uL Lymphocytes # (Auto) 1.5 1.0-4.8 K/uL Monocytes # (Auto) 0.7 0.1-1.0 K/uL Eosinophils # (Auto) 0.19 0.00-0.70 K/uL Basophils # (Auto) 0.04 0.00-0.20 K/uL Absolute Immature Granulocyte (auto 0.05 0-1 K/uL Chemistry Labs: Test 04/06/25 05:30 04/06/25 04:18 Range/Units Whole Blood Glucose 263 H 70-110 MG/DL Bedside Glucose Comment Notified Nurse Sodium Level 137 136-145 mmol/L Potassium Level 3.8 3.5-5.1 mmol/L Chloride Level 102 101-111 mmol/L Carbon Dioxide Level 29 21-32 mmol/L Blood Urea Nitrogen 16 7-18 mg/dL Creatinine 1.3 0.5-1.3 mg/dL Glomerular Filtration Rate Calc 61 >90 mL/min Random Glucose 277 H 70-105 mg/dL Total Calcium 8.4 L 8.5-10.1 mg/dL Procalcitonin 0.08 0.05-0.5 ng/mL DIAGNOSTICS / RADIOLOGY RESULTS: [ ] PLAN NEURO: Minimize central acting medications as possible. Maintain fall precautions, adequate lighting during the day PULMONARY: Supplemental 02 as needed. Maintain aspiration precautions at all times CARDIOVASCULAR: Follow hemodynamics. Vital signs per facility protocol GI & NUTRITION: Continue with nutritional support. Continue stool softeners and laxatives as needed. KIDNEYS & ELECTROLYTES: Strict monitoring of intake, output and overall fluid balance. Avoid nephrotoxic medications to the extent possible. Medications to be dosed according to renal function. Monitor electrolytes and replace as needed ENDOCRINE: Maintain blood glucose between 100-180 at all times. Hypoglycemia protocol in place INFECTIOUS DISEASE: Trend temperature, WBC and procalcitonin level Follow cultures, deescalate antibiotics as soon as possible. Panculture if new onset fever ONCOLOGY/HEMATOLOGY/COAGULATION: Monitor for s/s of bleeding Monitor hemoglobin, coagulation studies as needed SKIN: Pressure ulcer prevention per facility protocol Specialty mattress ORTHO/REHAB: Continue PT/OT Prophylaxis: Continue GI and DVT prophylaxis Code Status: Full Resuscitation Disposition: LTAC NATE OLIVA AGACNP Apr 06, 2025 09:43
--- NOTE | 2025-04-06 11:35 | HMCIMG ---
EXAMINATION: CT ANGIOGRAM OF ABDOMEN AND PELVIS AND RUNOFFS OF THE BILATERAL LOWER EXTREMITIES. CLINICAL HISTORY: Peripheral arterial disease COMPARISON: None provided. TECHNIQUE: MDCT angiogram of the abdominal aortic vessels was performed after administration of intravenous contrast. FINDINGS: Abdominal aorta is normal in size and caliber. There is no aneurysm or dissection. There is no stenosis or occlusion. The celiac and superior mesenteric arteries, are normal in caliber. There is no stenosis or occlusion. Bilateral renal arteries are normal in caliber. There is no stenosis or occlusion. The inferior mesenteric artery is normal in caliber. Bifurcation morphology is normal. There is no stenosis or occlusion. The bilateral common iliac arteries are normal in caliber. No stenosis or occlusion. There are atheromatous wall calcification of the left internal iliac and left common femoral arteries. The bilateral external iliac arteries are normal in caliber. Their branches are normal, and the bilateral internal iliac arteries are normal; there is no stenosis or occlusion. The bilateral superficial femoral arteries are normal in caliber. There is no stenosis or occlusion. The bilateral profunda femoris and popliteal arteries are normal in size and caliber. There is no stenosis or occlusion. There is narrow caliber flow in the bilateral tibio-peroneal arteries. No stenosis/occlusion. Within the abdomen and pelvis, liver is enlarged in caliber with uniform decreased density; there are gallbladder calculi with diffuse wall calcifications; there is a left renal lower pole cortical cyst measuring 0.6 x 0.6 cm; pancreas, spleen, adrenal glands, and right kidney are within normal limits; there are bilateral inguinal hernia; bowel loops are normal in caliber without evidence of obstruction, ileus, or bowel wall thickening, and the appendix is normal; and urinary bladder, appear normal in caliber; the prostate is enlarged in caliber. Included chest reveals bibasilar atelectasis. There is multilevel mild degenerative spondylosis of the spine. IMPRESSION: Normal CT angiogram of the abdomen, pelvis and bilateral lower extremities. No acute abdominal or pelvic pathology. Enlarged liver with fatty infiltration. Gallstones. /[place]
--- NOTE | 2025-04-06 15:56 | PN ---
[facility] CARDIOLOGY PROGRESS NOTE Date Patient Seen: Apr 06, 2025 Time of Visit: 15:55 Interval History: [No acute events overnight. The patient underwent bilateral lower extremity CTA with runoff, showing narrow caliber or flow in the bilateral tibioperoneal arteries with no stenosis or occlusion seen, of note I have personally reviewed CT films and concur. Physical Examination: EYES: Anicteric. Pupils equal and reactive. HENT: No oral thrush seen, moist Oral mucosa NECK: Supple, no JVD or thyromegaly. LUNGS: Good air entry. No rales, no rhonchi. CARDIOVASCULAR: S1, S2 regular. No murmur heard. ABDOMEN: Soft, non tender, bowel sounds present, no organomegaly CENTRAL NERVOUS SYSTEM: Awake, alert, oriented x 3. No focal deficits. SKIN: Ulceration hallux left with cellulitis of the foot left. LYMPHATICS: No peripheral lymphadenopathy MUSCULOSKELETAL: No joint swelling, erythema or tenderness. EXTREMITIES: Arthropathies hallux limitus and neuropathy on feet bilateral BACK: No deformity, no pressure ulcer. GENITOURINARY: No dysuria or hematuria Laboratory: [ ] Hematology Labs: Test 04/06/25 04:18 04/05/25 04:21 Range/Units White Blood Count 8.2 4.8-10.8 K/uL Red Blood Count 4.84 4.50-6.20 MIL/uL Hemoglobin 14.3 14.0-18.0 g/dL Hematocrit 43.3 42-54 % Mean Corpuscular Volume 89.5 79-99 fL Mean Corpuscular Hemoglobin 29.5 27.0-33.0 pg Mean Corpuscular Hemoglobin Concent 33.0 32.0-36.0 g/dL Red Cell Distribution Width 13.5 11.0-15.5 % Platelet Count 212 130-400 K/uL Mean Platelet Volume 10.8 H 7.5-10.5 fL Nucleated Red Blood Cells 0.0 0.0-0.19 % Immature Granulocyte % (Auto) 0.6 0-1 % Neutrophils (%) (Auto) 69.1 40.0-77.0 % Lymphocytes (%) (Auto) 19.0 L 21.0-51.0 % Monocytes (%) (Auto) 8.4 3.0-13.0 % Eosinophils (%) (Auto) 2.4 0.0-8.0 % Basophils (%) (Auto) 0.5 0.0-5.0 % Neutrophils # (Auto) 5.4 1.8-7.7 K/uL Lymphocytes # (Auto) 1.5 1.0-4.8 K/uL Monocytes # (Auto) 0.7 0.1-1.0 K/uL Eosinophils # (Auto) 0.19 0.00-0.70 K/uL Basophils # (Auto) 0.04 0.00-0.20 K/uL Absolute Immature Granulocyte (auto 0.05 0-1 K/uL Chemistry Labs: Test 04/06/25 11:21 04/06/25 05:30 04/06/25 04:18 Range/Units Whole Blood Glucose 350 H 70-110 MG/DL Bedside Glucose Comment Notified Nurse Sodium Level 137 136-145 mmol/L Potassium Level 3.8 3.5-5.1 mmol/L Chloride Level 102 101-111 mmol/L Carbon Dioxide Level 29 21-32 mmol/L Blood Urea Nitrogen 16 7-18 mg/dL Creatinine 1.3 0.5-1.3 mg/dL Glomerular Filtration Rate Calc 61 >90 mL/min Random Glucose 277 H 70-105 mg/dL Total Calcium 8.4 L 8.5-10.1 mg/dL Procalcitonin 0.08 0.05-0.5 ng/mL Diagnostics / Radiology: [Copy/Paste Echos/Imaging Report here] Impression and Plan: [PAD-osteomyelitis left hallux Hypertension Diabetes mellitus 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 Abdominal CTA with the extremity runoff revealed narrow caliber flow in the bilateral tibioperoneal arteries, with no stenosis or occlusion. I have personally reviewed the CT scan films, and concur. No need for any further testing, no plans for any invasive procedures Continue aspirin 80 mg daily Lipitor 40 mg daily This consult cardiology will sign off at this time Dell Turner MD ATTESTATION BY PHYSICIAN I have seen and examined the patient, reviewed the above documentation, participated in medical decision making, made necessary modifications, and agree with the treatment plan as documented by my mid-level provider above. MD SERGIO Bonilal JAMES R MD Apr 06, 2025 15:56
[2025-04-07] VITALS (8 sets, daily range): BP systolic 149–168; BP diastolic 59–93; PULSE 64–80; RESP 18–20; TEMP 97.5–98.1; O2SAT 96–97
[2025-04-07 04:17] LABS: NUCLEATED RED BLOOD CELLS 0.0 % (0.0-0.19); PLATELET COUNT (AUTO) 240.0 K/uL (130-400); RED BLOOD CELL COUNT(AUTO) 4.72 MIL/uL (4.50-6.20); RED CELL DISTRIBUTION WIDTH 13.4 % (11.0-15.5); WHITE BLOOD COUNT (AUTO) 10.6 K/uL (4.8-10.8)
[2025-04-07 04:44] LABS: ASPARTATE AMINOTRANSFERASE 34.0 U/L (10-37); CREATININE 1.3 mg/dL (0.5-1.3); GLOMERULAR FILTR. RATE CALC 61.0 mL/min (>90); GLUCOSE,RANDOM 167.0 mg/dL (70-105); SODIUM SERUM 139.0 mmol/L (136-145); TOTAL PROTEIN, SERUM 6.5 g/dL (6.0-8.3); UREA NITROGEN, BLOOD 18.0 mg/dL (7-18)
--- NOTE | 2025-04-07 12:39 | PN ---
[facility] PROGRESS NOTE Date Patient Seen: Apr 07, 2025 Time of Visit: 12:39 Supervising Physician: Dr Diaz Greenberg Primary Care Physician: Dr. Joana Díaz Outpatient Specialists: [ ] Inpatient Consults: Dr. Juan Luis Lowery (DPM), Dr Dell Turner (Cardiology, [facility]), Dr. Khoi Cespedes (ID) PROBLEM LIST: Left great toe necrosis, s/p ID at bedside, MRI (+) osteomyelitis Chronic left foot wound, wound culture results MDRO DM type 2, with hyperglycemia, POA Hyponatremia, POA Class two obesity, BMI of 35, POA Acute kidney injury in chronic kidney disease, POA- resolved CHRONIC PROBLEM LIST: History of left eye blindness Diabetes mellitus type 2 PAD Hypertension Hyperlipidemia INTERVAL HISTORY: [64-year-old male with past medical history of DM type 2, hypertension, hyperlipidemia, chronic wound to left foot, who presented to ED via private vehicle with complaint of worsening left great toe swelling with increasing wound drainage and found to have nonhealing ulcer to great toe, possible gas gangrene, acute on chronic kidney disease, and leukocytosis. Patient was seen and examined in ED with no relatives present at bedside. Apparently patient has been having issues with blister-like formation on the left great toe, last Saturday patient hit a barrel, and afterwards developed worsening leg swelling and increasing drainage on that left foot. Apparently patient is getting care from a wound care nurse, was advised to come to ED for further medical evaluation. In ED CBC was done and [place] [id number], chemistry showed creatinine level of 2.0, sodium level of 133. X-ray of the left foot showed soft tissue swelling of the great toe and forefoot with subcutaneous gas about the great toe including around the interphalangeal joint suspicious for gas- forming soft tissue infection. Patient was subsequently started on clindamycin and was given one dose of vancomycin. We will consult Podiatry in a.m. At present patient is currently hemodynamically stable, on room air with appropriate oxygen saturation, denies any headache, chest pain, shortness of breath, abdominal pain, fever, dysuria, or flu-like symptoms. Patient denies any smoking, alcohol intake, or illicit drug use.] 04/03 Patient is evaluated at bedside. He was just evaluated by podiatry, pending consult note. Patient states has had multiple surgeries in the past with Dr. Barton as well as Dr. Lowery. WBC is elevated, blood glucose and CRP are elevated. CXR cannot r/o osteomyelitis to L-foot. Blood culture is negative. He continues on cefepime and vancomycin. Patient underwent wound care by podiatry and deferred foot exam. 04/04 patient is evaluated at bedside. His vitals are within normal limits, afebrile overnight. Blood pressure is improved. Has been blood sugars improved on insulin regimen. WBC improved. He continues on cefepime and vancomycin for a diabetic foot ulcer. He had an I&D yesterday at bedside by Dr. Lowery, pending official consult note. Patient states we will have follow-up with podiatry on Saturday for further management. He did obtain an MRI and arterial Dopplers, pending results. 04/05 - patient is seen and evaluated at the bedside. Patient in bed resting quietly continues to complain of pain to his left foot. Dressing is dry and intact. Patient had an MRI of the left foot and results shows osteomyelitis involving the distal articular margin of the proximal phalanx and proximal articular margin of the distal phalanx of the great toe. Ill-defined 2.3 x 1.5 cm fluid collection in the plantar soft tissues deep in the great toe ulcer compatible with evolving abscess versus phlegmon. Patient continues on broad- spectrum antibiotics for now. Patient had arterial Dopplers and was found to have monophasic waveforms therefore Cardiology was consulted. Patient was evaluated by Cardiology and recommend bilateral lower extremity CTA with runoff to further delineate the patient's anatomy, morphology, characteristics. Continue aspirin and statin for now. Prior to discharge consider low-dose Eliquis 2.5 mg b.i.d.. We will continue current treatment plan for now. We will await CTA with runoff results and further recommendations from consultants. We will continue current wound care as per Podiatry. Patient will require at least 6 weeks of IV antibiotics. We will ask case management to refer patient to [facility]. 04/06- Assessed and examined the patient resting in bed with head of bed elevated watching television friendly and conversant accompanied by patient's bedside nurse, appears in no acute distress, awake alert and oriented. Nursing staff report no adverse events occurring overnight. Vital signs stable. Afebrile. Case management requested to assist patient will require six weeks of IV antibiotic therapy upon discharge. Last Infectious Disease specialists for recommendations. Awaiting results from CT abdominal angiogram with runoff. We will continue IV antibiotic therapy under the guidance of Infectious Disease specialists. Reviewed and discussed with patient laboratory results vital signs. Wound care we will be managed by Podiatry which will continue. Patient is an excellent candidate for a long-term acute care facility, LTAC case managem ent to assist with placement. Further orders per course of stay. A.m. labs ordered. 04/07-The patient seen and examined while resting bed head of bed is elevated, accompanied by patient's bedside nurse, patient appears in no acute distress, vital signs were stable. Afebrile. Awake alert oriented. Reviewed and discussed with patient laboratory results, vital signs, culture results from incision and drainage of wound to left great toe, and treatment plan after discharge. Patient's wound culture results multiple drug resistant organisms, we will request consult Infectious Disease specialists f for most appropriate antibiotic agent and duration of therapy, once known discussed with patient option if long-term acute care, home health, or infusion center. Reviewed and discussed with patient labs, diagnostic tests results medications being used. After discussing there were no questions. Further orders per course of stay. A.m. labs ordered PLAN: Supplemental oxygen as needed Cefepime and vancomycin discontinued, started Zosyn Continue wound care as per Podiatry CTA with runoff as per Cardiology resulted We will follow Infectious Disease recommendations Treat fever aggressively Monitor temperature curve Avoid nephrotoxic agents Case management to assist with discharge planning based on ID recommendations Further orders per course of stay REVIEW OF SYSTEMS: 12 point ROS reviewed with patient. Pertinent positives mentioned above. Otherwise negative. PHYSICAL EXAM: GENERAL: alert, weak, awake oriented x 3 HEENT: Left eye blindness NECK: Supple, no JVD, trachea midline LUNGS: Clear breath sounds bilaterally. No wheezes HEART: Regular rate and rhythm. Normal S1 and S2, without murmurs ABD: Abdomen soft, nontender. Bowel sounds present EXT: No clubbing cyanosis or edema, necrotic left great toe NEURO: Alert and oriented to person, follows commands Vital Signs (last 8hr) Date Time Temp Pulse Resp B/P (MAP) Pulse Ox O2 Delivery O2 Flow Rate FiO2 04/07/25 08:50 78 155/81 04/07/25 08:00 98.1 78 18 155/81 96 Room Air LABS: Hematology Labs: Test 04/07/25 04:12 Range/Units White Blood Count 10.6 # 4.8-10.8 K/uL Red Blood Count 4.72 4.50-6.20 MIL/uL Hemoglobin 14.1 14.0-18.0 g/dL Hematocrit 41.9 L 42-54 % Mean Corpuscular Volume 88.8 79-99 fL Mean Corpuscular Hemoglobin 29.9 27.0-33.0 pg Mean Corpuscular Hemoglobin Concent 33.7 32.0-36.0 g/dL Red Cell Distribution Width 13.4 11.0-15.5 % Platelet Count 240 130-400 K/uL Mean Platelet Volume 10.4 7.5-10.5 fL Nucleated Red Blood Cells 0.0 0.0-0.19 % Chemistry Labs: Test 04/07/25 11:45 04/07/25 04:12 04/06/25 19:36 04/06/25 04:18 Range/Units Whole Blood Glucose 222 H 70-110 MG/DL Sodium Level 139 136-145 mmol/L Potassium Level 3.5 3.5-5.1 mmol/L Chloride Level 106 101-111 mmol/L Carbon Dioxide Level 27 21-32 mmol/L Blood Urea Nitrogen 18 7-18 mg/dL Creatinine 1.3 0.5-1.3 mg/dL Glomerular Filtration Rate Calc 61 >90 mL/min Random Glucose 167 H 70-105 mg/dL Total Calcium 8.6 8.5-10.1 mg/dL Magnesium Level 2.20 1.80-2.40 mg/dL Total Bilirubin 0.4 0.2-1.0 mg/dL Aspartate Amino Transf (AST/SGOT) 34 10-37 U/L Alanine Aminotransferase (ALT/SGPT) 59 12-78 U/L Alkaline Phosphatase 104 50-136 U/L Total Protein 6.5 6.0-8.3 g/dL Albumin 2.2 L 3.5-5.0 g/dL Bedside Glucose Comment Notified Nurse Procalcitonin 0.08 0.05-0.5 ng/mL DIAGNOSTICS / RADIOLOGY RESULTS: [ ] PLAN NEURO: Minimize central acting medications as possible. Maintain fall precautions, adequate lighting during the day PULMONARY: Supplemental 02 as needed. Maintain aspiration precautions at all times CARDIOVASCULAR: Follow hemodynamics. Vital signs per facility protocol GI & NUTRITION: Continue with nutritional support. Continue stool softeners and laxatives as needed. KIDNEYS & ELECTROLYTES: Strict monitoring of intake, output and overall fluid balance. Avoid nephrotoxic medications to the extent possible. Medications to be dosed according to renal function. Monitor electrolytes and replace as needed ENDOCRINE: Maintain blood glucose between 100-180 at all times. Hypoglycemia protocol in place INFECTIOUS DISEASE: Trend temperature, WBC and procalcitonin level Follow cultures, deescalate antibiotics as soon as possible. Panculture if new onset fever ONCOLOGY/HEMATOLOGY/COAGULATION: Monitor for s/s of bleeding Monitor hemoglobin, coagulation studies as needed SKIN: Pressure ulcer prevention per facility protocol Specialty mattress ORTHO/REHAB: Continue PT/OT Prophylaxis: Continue GI and DVT prophylaxis Code Status: Full Resuscitation Disposition: LTNATE HERNANDEZ AGACNP Apr 07, 2025 12:39
[2025-04-07] MEDS: ZOSYN 3.375GM +NS 50ML IV SCH (20:39)
[2025-04-08] VITALS (8 sets, daily range): BP systolic 128–149; BP diastolic 57–81; PULSE 61–69; RESP 18–20; TEMP 97.2–98.6; O2SAT 69–98
[2025-04-08 04:37] LABS: NUCLEATED RED BLOOD CELLS 0.0 % (0.0-0.19); PLATELET COUNT (AUTO) 240.0 K/uL (130-400); RED BLOOD CELL COUNT(AUTO) 4.83 MIL/uL (4.50-6.20); RED CELL DISTRIBUTION WIDTH 13.4 % (11.0-15.5); WHITE BLOOD COUNT (AUTO) 8.6 K/uL (4.8-10.8)
[2025-04-08 04:56] LABS: ASPARTATE AMINOTRANSFERASE 49.0 U/L (10-37); CREATININE 1.4 mg/dL (0.5-1.3); GLOMERULAR FILTR. RATE CALC 56.0 mL/min (>90); GLUCOSE,RANDOM 87.0 mg/dL (70-105); SODIUM SERUM 140.0 mmol/L (136-145); TOTAL PROTEIN, SERUM 6.5 g/dL (6.0-8.3); UREA NITROGEN, BLOOD 18.0 mg/dL (7-18)
--- NOTE | 2025-04-08 11:33 | PN ---
[facility] PROGRESS NOTE Date Patient Seen: Apr 08, 2025 Time of Visit: 11:33 Supervising Physician: Dr. Diaz Greenberg Primary Care Physician: Dr. Joana Díaz Outpatient Specialists: [ ] Inpatient Consults: Dr. Juan Luis Lowery (DPM), Dr Dell Turner (Cardiology, [facility]), Dr. Khoi Cespedes (ID) PROBLEM LIST: Left great toe necrosis, s/p ID at bedside, MRI (+) osteomyelitis Chronic left foot wound, wound culture results MDRO DM type 2, with hyperglycemia, POA Hyponatremia, POA Class two obesity, BMI of 35, POA Acute kidney injury in chronic kidney disease, POA- resolved CHRONIC PROBLEM LIST: History of left eye blindness Diabetes mellitus type 2 PAD Hypertension Hyperlipidemia INTERVAL HISTORY: [64-year-old male with past medical history of DM type 2, hypertension, hyperlipidemia, chronic wound to left foot, who presented to ED via private vehicle with complaint of worsening left great toe swelling with increasing wound drainage and found to have nonhealing ulcer to great toe, possible gas gangrene, acute on chronic kidney disease, and leukocytosis. Patient was seen and examined in ED with no relatives present at bedside. Apparently patient has been having issues with blister-like formation on the left great toe, last Saturday patient hit a barrel, and afterwards developed worsening leg swelling and increasing drainage on that left foot. Apparently patient is getting care from a wound care nurse, was advised to come to ED for further medical evaluation. In ED CBC was done and [place] [address]182, chemistry showed creatinine level of 2.0, sodium level of 133. X-ray of the left foot showed soft tissue swelling of the great toe and forefoot with subcutaneous gas about the great toe including around the interphalangeal joint suspicious for gas- forming soft tissue infection. Patient was subsequently started on clindamycin and was given one dose of vancomycin. We will consult Podiatry in a.m. At present patient is currently hemodynamically stable, on room air with appropriate oxygen saturation, denies any headache, chest pain, shortness of breath, abdominal pain, fever, dysuria, or flu-like symptoms. Patient denies any smoking, alcohol intake, or illicit drug use.] 04/03 Patient is evaluated at bedside. He was just evaluated by podiatry, pend ing consult note. Patient states has had multiple surgeries in the past with Dr. Barton as well as Dr. Lowery. WBC is elevated, blood glucose and CRP are elevated. CXR cannot r/o osteomyelitis to L-foot. Blood culture is negative. He continues on cefepime and vancomycin. Patient underwent wound care by podiatry and deferred foot exam. 04/04 patient is evaluated at bedside. His vitals are within normal limits, afebrile overnight. Blood pressure is improved. Has been blood sugars improved on insulin regimen. WBC improved. He continues on cefepime and vancomycin for a diabetic foot ulcer. He had an I&D yesterday at bedside by Dr. Lowery, pending official consult note. Patient states we will have follow-up with podiatry on Saturday for further management. He did obtain an MRI and arterial Dopplers, pending results. 04/05 - patient is seen and evaluated at the bedside. Patient in bed resting quietly continues to complain of pain to his left foot. Dressing is dry and intact. Patient had an MRI of the left foot and results shows osteomyelitis involving the distal articular margin of the proximal phalanx and proximal articular margin of the distal phalanx of the great toe. Ill-defined 2.3 x 1.5 cm fluid collection in the plantar soft tissues deep in the great toe ulcer compatible with evolving abscess versus phlegmon. Patient continues on broad- spectrum antibiotics for now. Patient had arterial Dopplers and was found to have monophasic waveforms therefore Cardiology was consulted. Patient was lucia luated by Cardiology and recommend bilateral lower extremity CTA with runoff to further delineate the patient's anatomy, morphology, characteristics. Continue aspirin and statin for now. Prior to discharge consider low-dose Eliquis 2.5 mg b.i.d.. We will continue current treatment plan for now. We will await CTA with runoff results and further recommendations from consultants. We will continue current wound care as per Podiatry. Patient will require at least 6 weeks of IV antibiotics. We will ask case management to refer patient to [facility]. 04/06- Assessed and examined the patient resting in bed with head of bed elev ated watching television friendly and conversant accompanied by patient's bedside nurse, appears in no acute distress, awake alert and oriented. Nursing staff report no adverse events occurring overnight. Vital signs stable. Afebrile. Case management requested to assist patient will require six weeks of IV antibiotic therapy upon discharge. Last Infectious Disease specialists for recommendations. Awaiting results from CT abdominal angiogram with runoff. We will continue IV antibiotic therapy under the guidance of Infectious Disease specialists. Reviewed and discussed with patient laboratory results vital signs. Wound care we will be managed by Podiatry which will continue. Patient is an excellent candidate for a long-term acute care facility, LTAC case management to assist with placement. Further orders per course of stay. A.m. labs ordered. 04/07-The patient seen and examined while resting bed head of bed is elevated, accompanied by patient's bedside nurse, patient appears in no acute distress, vital signs were stable. Afebrile. Awake alert oriented. Reviewed and discussed with patient laboratory results, vital signs, culture results from incision and drainage of wound to left great toe, and treatment plan after discharge. Patient's wound culture results multiple drug resistant organisms, we will request consult Infectious Disease specialists f for most appropriate an tibiotic agent and duration of therapy, once known discussed with patient option if long-term acute care, home health, or infusion center. Reviewed and discussed with patient labs, diagnostic tests results medications being used. After discussing there were no questions. Further orders per course of stay. A.m. labs ordered 04/08-examined seen the patient while resting in bed head of the bed is elevated watching television friendly and conversant there are no family members present at the time of my assessment. Awake alert and oriented and appears in no acute distress. Vital signs patient is afebrile. Awaiting recommendations from Infectious specialists once those are made patient then if required we will then have a IV catheter placed either PICC line were midline catheter and then we then arranging assistance of case management inpatient or outpatient clinic for IV infusion therapy. Reviewed and discussed with patient medications currently being used, laboratory results, and vital signs. After discussing you in no other questions or concerns by patient. Further orders per course of stay. A.m. labs to be ordered. PLAN: Supplemental oxygen as needed Cefepime and vancomycin discontinued, started Zosyn Continue wound care as per Podiatry CTA with runoff as per Cardiology resulted We will follow Infectious Disease recommendations Treat fever aggressively Monitor temperature curve Avoid nephrotoxic agents Case management to assist with discharge planning based on ID recommendations Further orders per course of stay REVIEW OF SYSTEMS: 12 point ROS reviewed with patient. Pertinent positives mentioned above. Otherwise negative. PHYSICAL EXAM: GENERAL: alert, weak, awake oriented x 3 HEENT: Left eye blindness NECK: Supple, no JVD, trachea midline LUNGS: Clear breath sounds bilaterally. No wheezes HEART: Regular rate and rhythm. Normal S1 and S2, without murmurs ABD: Abdomen soft, nontender. Bowel sounds present EXT: No clubbing cyanosis or edema, necrotic left great toe NEURO: Alert and oriented to person, follows commands Vital Signs (last 8hr) Date Time Temp Pulse Resp B/P (MAP) Pulse Ox O2 Delivery O2 Flow Rate FiO2 04/08/25 08:14 69 149/81 04/08/25 08:00 97.7 69 20 149/81 96 Room Air 04/08/25 04:00 97.9 61 20 142/57 97 Room Air LABS: Hematology Labs: Test 04/08/25 04:12 Range/Units White Blood Count 8.6 4.8-10.8 K/uL Red Blood Count 4.83 4.50-6.20 MIL/uL Hemoglobin 14.3 14.0-18.0 g/dL Hematocrit 42.9 42-54 % Mean Corpuscular Volume 88.8 79-99 fL Mean Corpuscular Hemoglobin 29.6 27.0-33.0 pg Mean Corpuscular Hemoglobin Concent 33.3 32.0-36.0 g/dL Red Cell Distribution Width 13.4 11.0-15.5 % Platelet Count 240 130-400 K/uL Mean Platelet Volume 10.6 H 7.5-10.5 fL Nucleated Red Blood Cells 0.0 0.0-0.19 % Chemistry Labs: Test 04/08/25 06:46 04/08/25 04:12 04/06/25 19:36 Range/Units Whole Blood Glucose 85 70-110 MG/DL Sodium Level 140 136-145 mmol/L Potassium Level 3.5 3.5-5.1 mmol/L Chloride Level 104 101-111 mmol/L Carbon Dioxide Level 30 21-32 mmol/L Blood Urea Nitrogen 18 7-18 mg/dL Creatinine 1.4 H 0.5-1.3 mg/dL Glomerular Filtration Rate Calc 56 >90 mL/min Random Glucose 87 70-105 mg/dL Total Calcium 8.3 L 8.5-10.1 mg/dL Magnesium Level 2.20 1.80-2.40 mg/dL Total Bilirubin 0.4 0.2-1.0 mg/dL Aspartate Amino Transf (AST/SGOT) 49 H 10-37 U/L Alanine Aminotransferase (ALT/SGPT) 77 # 12-78 U/L Alkaline Phosphatase 108 50-136 U/L Total Protein 6.5 6.0-8.3 g/dL Albumin 2.2 L 3.5-5.0 g/dL Bedside Glucose Comment Notified Nurse DIAGNOSTICS / RADIOLOGY RESULTS: [ ] PLAN NEURO: Minimize central acting medications as possible. Maintain fall precautions, adequate lighting during the day PULMONARY: Supplemental 02 as needed. Maintain aspiration precautions at all times CARDIOVASCULAR: Follow hemodynamics. Vital signs per facility protocol GI & NUTRITION: Continue with nutritional support. Continue stool softeners and laxatives as needed. KIDNEYS & ELECTROLYTES: Strict monitoring of intake, output and overall fluid balance. Avoid nephrotoxic medications to the extent possible. Medications to be dosed according to renal function. Monitor electrolytes and replace as needed ENDOCRINE: Maintain blood glucose between 100-180 at all times. Hypoglycemia protocol in place INFECTIOUS DISEASE: Trend temperature, WBC and procalcitonin level Follow cultures, deescalate antibiotics as soon as possible. Panculture if new onset fever ONCOLOGY/HEMATOLOGY/COAGULATION: Monitor for s/s of bleeding Monitor hemoglobin, coagulation studies as needed SKIN: Pressure ulcer prevention per facility protocol Specialty mattress ORTHO/REHAB: Continue PT/OT Prophylaxis: Continue GI and DVT prophylaxis Code Status: Full Resuscitation Disposition: LTAC NATE OLIVA AGACNP Apr 08, 2025 11:33
--- NOTE | 2025-04-08 12:51 | CONS ---
INFECTIOUS DISEASE CONSULTATION NOTE Date of Service: Apr 08, 2025 Reason for Consultation: [ ] Requesting Physician: [ ] HISTORY OF PRESENT ILLNESS: [ ] REVIEW OF SYSTEMS CONSTITUTIONAL: Denies fever, chills, or fatigue. HEAD/FACE: No signs of trauma. EENT: Denies eye pain, blurred vision, double vision, or light sensitivity. RESPIRATORY: Denies shortness of breath, cough, wheezing CARDIOVASCULAR: Denies chest pain, palpitation, syncope GASTROINTESTINAL/ABDOMINAL: Denies abdominal pain, constipation, diarrhea, nausea or vomiting GENITOURINARY: Denies dysuria or hematuria. MUSCULOSKELETAL: Denies joint pain, tenderness, or trauma. INTEGUMENTARY: Denies rash or itchiness NEUROLOGICAL/PSYCH: Denies anxiety, depression, heat or cold intolerance. PAST MEDICAL HISTORY: [ ] PAST SURGICAL HISTORY: [ ] PAST SOCIAL HISTORY: [ ] FAMILY HISTORY: [ ] Coded Allergies: No Known Drug Allergies (Unverified Allergy, Unknown, 04/26/22) PHYSICAL EXAM EYES: Anicteric. Pupils equal and reactive. HENT: No oral thrush seen, moist Oral mucosa NECK: Supple, no JVD or thyromegaly. LUNGS: Good air entry. No rales, no rhonchi. CARDIOVASCULAR: S1, S2 regular. No murmur heard. ABDOMEN: Soft, non tender, bowel sounds present. CENTRAL NERVOUS SYSTEM: Awake, alert, oriented x 3. SKIN: No rashes, no swelling. LYMPHATICS: No peripheral lymphadenopathy MUSCULOSKELETAL: No joint swelling, erythema or tenderness. EXTREMITIES: No cyanosis or clubbing. Right 2nd toe amputation, right great toe partial amputation. Left 2nd toe amputation. Left great toe wound. BACK: No deformity, no pressure ulcer. GENITOURINARY: No dysuria or hematuria Vital Sign (Last 24 Hours) 04/08/25 04/08/25 08:45 12:45 Temp 97.2 Pulse 64 Resp 18 B/P (MAP) 138/61 Pulse Ox 94 O2 Delivery Room Air O2 Flow Rate 0 FiO2 21 Intake & Output (last 24hrs) 04/07/25 04/07/25 04/08/25 15:00 23:00 07:00 Intake Total 160.0 ml 1100.0 ml 850.0 ml Balance 160.0 ml 1100.0 ml 850.0 ml LABS: Laboratory: Test 04/08/25 11:54 04/08/25 04:12 04/06/25 19:36 Range/Units Whole Blood Glucose 185 #H 70-110 MG/DL White Blood Count 8.6 4.8-10.8 K/uL Red Blood Count 4.83 4.50-6.20 MIL/uL Hemoglobin 14.3 14.0-18.0 g/dL Hematocrit 42.9 42-54 % Mean Corpuscular Volume 88.8 79-99 fL Mean Corpuscular Hemoglobin 29.6 27.0-33.0 pg Mean Corpuscular Hemoglobin Concent 33.3 32.0-36.0 g/dL Red Cell Distribution Width 13.4 11.0-15.5 % Platelet Count 240 130-400 K/uL Mean Platelet Volume 10.6 H 7.5-10.5 fL Nucleated Red Blood Cells 0.0 0.0-0.19 % Sodium Level 140 136-145 mmol/L Potassium Level 3.5 3.5-5.1 mmol/L Chloride Level 104 101-111 mmol/L Carbon Dioxide Level 30 21-32 mmol/L Blood Urea Nitrogen 18 7-18 mg/dL Creatinine 1.4 H 0.5-1.3 mg/dL Glomerular Filtration Rate Calc 56 >90 mL/min Random Glucose 87 70-105 mg/dL Total Calcium 8.3 L 8.5-10.1 mg/dL Magnesium Level 2.20 1.80-2.40 mg/dL Total Bilirubin 0.4 0.2-1.0 mg/dL Aspartate Amino Transf (AST/SGOT) 49 H 10-37 U/L Alanine Aminotransferase (ALT/SGPT) 77 # 12-78 U/L Alkaline Phosphatase 108 50-136 U/L Total Protein 6.5 6.0-8.3 g/dL Albumin 2.2 L 3.5-5.0 g/dL Bedside Glucose Comment Notified Nurse DIAGNOSTICS / RADIOLOGY: PATIENT: REN MCLEOD MR#: [id number] : 1960 SEX: M AGE: 64 LOCATION: 3BH ORDER 38 STATUS: ADM IN REPORT#: [id number] SERVICE 33 REASON: r/o osteomyelitis ORDERING PHYSICIAN: KAI MUKHERJEE PAC PROCEDURE: FT LT WO - MR FOOT LEFT WO ADDENDUM REPORT ADDENDUM: Results were shared by telephone at 12:45 PM EST on 04-04-2025 and acknowledged by Patient Nurse , Mariposa Micheledez /[place] EXAM: MR left Lower Extremity Without IV contrast, Foot. CLINICAL HISTORY: Rule out osteomyelitis in the setting of great toe ulcer and recent trauma. TECHNIQUE: Multisequence, multiplanar magnetic resonance images of the left foot were obtained without intravenous contrast. CONTRAST: None. COMPARISON: Prior left foot radiographs (report describing great toe soft tissue gas and second metatarsal amputation deformity). FINDINGS: BONES: There is cortical rarefaction with underlying marrow edema involving the ventromedial distal articular margin of the proximal phalanx of the great toe, deep to a plantar soft tissue ulcer. There is additional cortical rarefaction and marrow edema involving the proximal articular margin of the distal phalanx of the great toe. These changes extend across the interphalangeal joint, which is disorganized and laterally subluxed, and are in keeping with osteomyelitis involving both sides of the interphalangeal joint. The second toe has been amputated at approximately the midsecond metatarsal level, with no abnormal marrow edema or erosion at the amputation margin to suggest active osteomyelitis. JOINTS AND CARTILAGE: The interphalangeal joint of the great toe is widened, disorganized, and laterally displaced with joint effusion and adjacent cortical/marrow changes, compatible with early septic arthritis in continuity with the adjacent osteomyelitis. The remaining visualized joints demonstrate preserved alignment and no high-grade chondral loss. SOFT TISSUES AND MUSCLES: There is a plantar soft tissue ulcer underlying the distal articular margin of the proximal phalanx of the great toe, with surrounding soft tissue edema. An ill-defined fluid collection measuring approximately 2.3 x 1.5 cm is present in the plantar soft tissues deep to the ulcer and adjacent to the distal articular surface of the proximal phalanx, compatible with an evolving abscess/phlegmon. No deep intramuscular abscess is identified. The intrinsic foot muscles otherwise show nonspecific edema without focal mass. TENDONS, LIGAMENTS, TARSAL TUNNEL, SINUS TARSI, PLANTAR FASCIA: Visualized tendons, ligaments, tarsal tunnel contents, sinus tarsi, and plantar fascia are grossly intact without tear. IMPRESSION: * Osteomyelitis involving the distal articular margin of the proximal phalanx and the proximal articular margin of the distal phalanx of the great toe, centered about the interphalangeal joint and deep to a plantar ulcer, with associated joint disorganization, effusion, and cortical rarefaction consistent with early septic arthritis of the great toe interphalangeal joint. * Ill-defined 2.3 x 1.5 cm fluid collection in the plantar soft tissues deep to the great toe ulcer, compatible with evolving abscess/phlegmon. * Status post second toe amputation at the midsecond metatarsal level without MR evidence of active osteomyelitis at the amputation stump. /[place] DICTATED BY: DAVID GUDINO MD DATE: 04/04/25 125 PATIENT: REN MCLEOD ACCT: [id number] LOC: [facility] U: [id number] AGE/SX: 64/M ROOM: [facility] RE04/02/[address]: TONY MAXWELL : 1960 BED: 1 DIS: STATUS: ADM IN TLOC: SPEC: [id number] MARV: 04/03/25 STATUS: COMP REQ: [id number] RECD: 04/03/[address]: CORINNA JENKINS DPM SOURCE: TOE ENTR: 04/03/[address] [facility] [address]: MECCA MAXWELL MD SPDESC: BIG TOE MIKALA CARTER MD, JOSE MARIANO MD ORDERED: ÁNGEL CULTURE, AEROBIC CULTURE Procedure Result Becky Date-Time ANAEROBIC CULTURE Final 04/07/25-0956 M[facility] COLONY DESCRIPTION: REPORT 1: NO ANAEROBES AT 16-23 HOURS; STUDIES TO CONTINUE REPORT 2: NO ANAEROBES AT 36-47 HOURS; STUDIES TO CONTINUE REPORT 3: NO ANAEROBES AT 60 TO 71 HOURS Test(s) performed by: [facility] [address] [place] [address] AEROBIC CULTURE Final 04/07/25-0836 [facility] COLONY DESCRIPTION: REPORT 1: 2+ SKIN LEORA ; STUDIES TO CONTINUE COAGULASE NEGATIVE STAPHYLOCOCCUS REPORT 2: 1+ GRAM NEGATIVE RODS IDENTIFICATION AND SENSITIVITY TO FOLLOW 1+ GRAM POSITIVE COCCI IN CHAINS . IDENTIFICATION AND SENSITIVITY TO FOLLOW REPORT 3: 1+ GRAM POSITIVE COCCI IN CLUSTERS STAPHYLOCOCCUS AUREUS SENSITIVITY TO FOLLOW NO FURTHER WORK-UP DONE [employer] KOSERI ENTEROCOCCUS FAECALIS STAPHYLOCOCCUS AUREUS CONTINUED ON NEXT PAGE RUN DATE: 04/07/25 [facility] PAGE 2 RUN TIME: [id number] [address] Department of Laboratories [facility] # [id number] [employer] Operator: Wilder Bowie DO Specimen Report SPEC: [id number] PATIENT: REN MCLEOD [id number] (Continued) Procedure Result Becky Date-Time AEROBIC CULTURE Final (continued) 04/07/25-835 [facility] Snyder FAECALIS M.I.C. RX M.I.C. RX --------- ---- --------- ---- AMPICILLIN <=2 S AZTREONAM <=4 S CEFTAZIDIME <=1 S CEFTAZIDIME/AVIBACTAM <=8 S ERYTHROMYCIN GENTAMICIN <=2 S LEVOFLOXACIN <=0.5 S VANCOMYCIN 1 S OXACILLIN LEX RIFAMPIN GENTAMICIN Synergy Screen >500 R MEROPENEM <=1 S PENICILLIN 2 S PIPERACILLIN/TAZOBACTAM <=8 S STREPTOMYCIN Synergy Screen <=1000 S TRIMETHOPRIM/SUFLAMETHOXAZOLE <=2/38 S S. AUREUS M.I.C. RX --------- ---- AMPICILLIN AZTREONAM CEFTAZIDIME CEFTAZIDIME/AVIBACTAM ERYTHROMYCIN >4 R GENTAMICIN <=4 S LEVOFLOXACIN <=1 S VANCOMYCIN 1 S OXACILLIN LEX 1 S RIFAMPIN <=1 S GENTAMICIN Synergy Screen MEROPENEM PENICILLIN 2 Yanick PIPERACILLIN/TAZOBACTAM STREPTOMYCIN Synergy Screen TRIMETHOPRIM/SUFLAMETHOXAZOLE <=0.5/9.5 S ASSESSMENT: Left great toe diabetic ulcer with polymicrobial infection. Left great toe osteomyelitis. Acute renal failure, resolving. Leukocytosis POA, resolved. Diabetes mellitus. PLAN: Discontinue Zosyn. Start cefepime1 g IV every12 hours. Continue vancomycin per pharmacy protocol. Case management evaluation for referral to [facility] for outpatient IV antibiotics x [address] weeks[address] Place PICC line. Thank you for allowing ID to participate in the care of this patient. This case was reviewed and discussed with my supervising physician Dr. Cespedes and the above assessment and plan was formulated and agreed upon. ATTESTATION BY PHYSICIAN I have seen and examined the patient. I reviewed the documentation, medical decision making, and treatment plan as noted by the mid-level provider above. I agree with the findings and plan of care. DOROTEO CESPEDES MD, [facility] Apr 08, 2025 12:51
[2025-04-08 13:45] LABS: INR 0.96 (0.85-1.15)
--- NOTE | 2025-04-08 15:15 | HMCIMG ---
EXAM: CR Chest, 2 View. CLINICAL HISTORY: PICC LINE PLACEMENT COMPARISON: CR - CHEST 1VW - 04/29/22 17:03 EST FINDINGS: LUNGS: There is no mass, infiltrate, or acute pulmonary abnormality. PLEURAL SPACES: No evidence of pleural effusion or pneumothorax. MEDIASTINUM: Cardiac size and mediastinal contours within normal limits. BONES: No acute osseous abnormality. IMPRESSION: No acute cardiopulmonary pathology is evident. There has been placement of a right-sided PICC line with the tip in the right superior vena cava. /[place]
[2025-04-09] VITALS: BP 134/70; PULSE 82; RESP 18; TEMP 98
[2025-04-09 04:00] VITALS: BP 142/79; PULSE 82; RESP 16; TEMP 97.8
[2025-04-09 04:27] LABS: NUCLEATED RED BLOOD CELLS 0.0 % (0.0-0.19); PLATELET COUNT (AUTO) 267.0 K/uL (130-400); RED BLOOD CELL COUNT(AUTO) 4.79 MIL/uL (4.50-6.20); RED CELL DISTRIBUTION WIDTH 13.6 % (11.0-15.5); WHITE BLOOD COUNT (AUTO) 8.9 K/uL (4.8-10.8)
[2025-04-09 04:43] LABS: ASPARTATE AMINOTRANSFERASE 39.0 U/L (10-37); CREATININE 1.5 mg/dL (0.5-1.3); GLOMERULAR FILTR. RATE CALC 52.0 mL/min (>90); GLUCOSE,RANDOM 189.0 mg/dL (70-105); SODIUM SERUM 137.0 mmol/L (136-145); TOTAL PROTEIN, SERUM 6.7 g/dL (6.0-8.3); UREA NITROGEN, BLOOD 15.0 mg/dL (7-18)
[2025-04-09 08:00] VITALS: BP 161/86; PULSE 78; RESP 20; TEMP 98
--- NOTE | 2025-04-09 10:18 | PN ---
[facility] PROGRESS NOTE Date Patient Seen: Apr 09, 2025 Time of Visit: 10:17 Supervising Physician: [ ] Primary Care Physician: Dr. Joana Díaz Outpatient Specialists: [ ] Inpatient Consults: Dr. Juan Luis Lowery (DPM), Dr Dell Turner (Cardiology, [facility]), Dr. Khoi Cespedes (ID) PROBLEM LIST: Left great toe necrosis, s/p ID at bedside, MRI (+) osteomyelitis Chronic left foot wound, wound culture results MDRO DM type 2, with hyperglycemia, POA Hyponatremia, POA Class two obesity, BMI of 35, POA Acute kidney injury in chronic kidney disease, POA- resolved CHRONIC PROBLEM LIST: History of left eye blindness Diabetes mellitus type 2 PAD Hypertension Hyperlipidemia INTERVAL HISTORY: [64-year-old male with past medical history of DM type 2, hypertension, hyperlipidemia, chronic wound to left foot, who presented to ED via private vehicle with complaint of worsening left great toe swelling with increasing wound drainage and found to have nonhealing ulcer to great toe, possible gas gangrene, acute on chronic kidney disease, and leukocytosis. Patient was seen and examined in ED with no relatives present at bedside. Apparently patient has been having issues with blister-like formation on the left great toe, last Saturday patient hit a barrel, and afterwards developed w orsening leg swelling and increasing drainage on that left foot. Apparently patient is getting care from a wound care nurse, was advised to come to ED for further medical evaluation. In ED CBC was done and showed WBC [place] more [place] [id number], chemistry showed creatinine level of 2.0, sodium level of 133. X-ray of the left foot showed soft tissue swelling of the great toe and forefoot with subcutaneous gas about the great toe including around the interphalangeal joint suspicious for gas- forming soft tissue infection. Patient was subsequently started on clindamycin and was given one dose of vancomycin. We will consult Podiatry in a.m. At present patient is currently hemodynamically stable, on room air with appropriate oxygen saturation, denies any headache, chest pain, shortness of breath, abdominal pain, fever, dysuria, or flu-like symptoms. Patient denies any smoking, alcohol intake, or illicit drug use.] 04/03 Patient is evaluated at bedside. He was just evaluated by podiatry, pending consult note. Patient states has had multiple surgeries in the past with Dr. Barton as well as Dr. Lowery. WBC is elevated, blood glucose and CRP are elevated. CXR cannot r/o osteomyelitis to L-foot. Blood culture is negative. He continues on cefepime and vancomycin. Patient underwent wound care by podiatry and deferred foot exam. 04/04 patient is evaluated at bedside. His vitals are within normal limits, afebrile overnight. Blood pressure is improved. Has been blood sugars improved on insulin regimen. WBC improved. He continues on cefepime and vancomycin for a diabetic foot ulcer. He had an I&D yesterday at bedside by Dr. Lowery, pending official consult note. Patient states we will have follow-up with podiatry on Saturday for further management. He did obtain an MRI and arterial Dopplers, pending results. 04/05 - patient is seen and evaluated at the bedside. Patient in bed resting quietly continues to complain of pain to his left foot. Dressing is dry and intact. Patient had an MRI of the left foot and results shows osteomyelitis involving the distal articular margin of the proximal phalanx and proximal articular margin of the distal phalanx of the great toe. Ill-defined 2.3 x 1.5 cm fluid collection in the plantar soft tissues deep in the great toe ulcer compatible with evolving abscess versus phlegmon. Patient continues on broad- spectrum antibiotics for now. Patient had arterial Dopplers and was found to have monophasic waveforms therefore Cardiology was consulted. Patient was evaluated by Cardiology and recommend bilateral lower extremity CTA with runoff to further delineate the patient's anatomy, morphology, characteristics. Continue aspirin and statin for now. Prior to discharge consider low-dose Eliquis 2.5 mg b.i.d.. We will continue current treatment plan for now. We will await CTA with runoff results and further recommendations from consultants. We will continue current wound care as per Podiatry. Patient will require at least 6 weeks of IV antibiotics. We will ask case management to refer patient to [facility]. 04/06- Assessed and examined the patient resting in bed with head of bed elevated watching television friendly and conversant accompanied by patient's bedside nurse, appears in no acute distress, awake alert and oriented. Nursing staff report no adverse events occurring overnight. Vital signs stable. Afebrile. Case management requested to assist patient will require six weeks of IV antibiotic therapy upon discharge. Last Infectious Disease specialists for recommendations. Awaiting results from CT abdominal angiogram with runoff. We will continue IV antibiotic therapy under the guidance of Infectious Disease specialists. Reviewed and discussed with patient laboratory results vital signs. Wound care we will be managed by Podiatry which will continue. Patient is an excellent candidate for a long-term acute care facility, LTAC case management to assist with placement. Further orders per course of stay. A.m. labs ordered. 04/07-The patient seen and examined while resting bed head of bed is elevated, accompanied by patient's bedside nurse, patient appears in no acute distress, vital signs were stable. Afebrile. Awake alert oriented. Reviewed and discussed with patient laboratory results, vital signs, culture results from incision and drainage of wound to left great toe, and treatment plan after discharge. Patient's wound culture results multiple drug resistant organisms, we will request consult Infectious Disease specialists f for most appropriate antibiotic agent and duration of therapy, once known discussed with patient option if long-term acute care, home health, or infusion center. Reviewed and discussed with patient labs, diagnostic tests results medications being used. After discussing there were no questions. Further orders per course of stay. A.m. labs ordered 04/08-examined seen the patient while resting in bed head of the bed is elevated watching television friendly and conversant there are no family members present at the time of my assessment. Awake alert and oriented and appears in no acute distress. Vital signs patient is afebrile. Awaiting recommendations from Infectious specialists once those are made patient then if required we will then have a IV catheter placed either PICC line were midline catheter and then we then arranging assistance of case management inpatient or outpatient clinic for IV infusion therapy. Reviewed and discussed with patient medications currently being used, laboratory results, and vital signs. After discussing you in no other questions or concerns by patient. Further orders per course of stay. A.m. labs to be ordered. PLAN: Supplemental oxygen as needed Cefepime and vancomycin discontinued, started Zosyn Continue wound care as per Podiatry CTA with runoff as per Cardiology resulted We will follow Infectious Disease recommendations Treat fever aggressively Monitor temperature curve Avoid nephrotoxic agents Case management to assist with discharge planning based on ID recommendations Further orders per course of stay REVIEW OF SYSTEMS: 12 point ROS reviewed with patient. Pertinent positives mentioned above. Otherwise negative. PHYSICAL EXAM: GENERAL: alert, weak, awake oriented x 3 HEENT: Left eye blindness NECK: Supple, no JVD, trachea midline LUNGS: Clear breath sounds bilaterally. No wheezes HEART: Regular rate and rhythm. Normal S1 and S2, without murmurs ABD: Abdomen soft, nontender. Bowel sounds present EXT: No clubbing cyanosis or edema, necrotic left great toe NEURO: Alert and oriented to person, follows commands Vital Signs (last 8hr) Date Time Temp Pulse Resp B/P (MAP) Pulse Ox O2 Delivery O2 Flow Rate FiO2 04/09/25 08:38 161/86 04/09/25 08:00 98.1 78 20 161/86 95 Nasal Cannula 2.0 04/09/25 04:00 97.9 82 16 142/79 95 Room Air LABS: Hematology Labs: Test 04/09/25 04:11 Range/Units White Blood Count 8.9 4.8-10.8 K/uL Red Blood Count 4.79 4.50-6.20 MIL/uL Hemoglobin 14.3 14.0-18.0 g/dL Hematocrit 43.0 42-54 % Mean Corpuscular Volume 89.8 79-99 fL Mean Corpuscular Hemoglobin 29.9 27.0-33.0 pg Mean Corpuscular Hemoglobin Concent 33.3 32.0-36.0 g/dL Red Cell Distribution Width 13.6 11.0-15.5 % Platelet Count 267 130-400 K/uL Mean Platelet Volume 10.4 7.5-10.5 fL Nucleated Red Blood Cells 0.0 0.0-0.19 % Chemistry Labs: Test 04/09/25 05:37 04/09/25 04:11 Range/Units Whole Blood Glucose 160 #H 70-110 MG/DL Sodium Level 137 136-145 mmol/L Potassium Level 3.6 3.5-5.1 mmol/L Chloride Level 104 101-111 mmol/L Carbon Dioxide Level 27 21-32 mmol/L Blood Urea Nitrogen 15 7-18 mg/dL Creatinine 1.5 H 0.5-1.3 mg/dL Glomerular Filtration Rate Calc 52 >90 mL/min Random Glucose 189 #H 70-105 mg/dL Total Calcium 8.4 L 8.5-10.1 mg/dL Magnesium Level 2.30 1.80-2.40 mg/dL Total Bilirubin 0.4 0.2-1.0 mg/dL Aspartate Amino Transf (AST/SGOT) 39 H 10-37 U/L Alanine Aminotransferase (ALT/SGPT) 69 12-78 U/L Alkaline Phosphatase 97 50-136 U/L Total Protein 6.7 6.0-8.3 g/dL Albumin 2.4 L 3.5-5.0 g/dL Coagulation Labs: Test 04/08/25 13:29 Range/Units Prothrombin Time 10.2 9.6-11.6 SEC Prothromb Time International Ratio 0.96 0.85-1.15 Activated Partial Thromboplast Time 26.9 26.3-35.5 SEC DIAGNOSTICS / RADIOLOGY RESULTS: [ ] PLAN NEURO: Minimize central acting medications as possible. Maintain fall precautions, adequate lighting during the day PULMONARY: Supplemental 02 as needed. Maintain aspiration precautions at all times CARDIOVASCULAR: Follow hemodynamics. Vital signs per facility protocol GI & NUTRITION: Continue with nutritional support. Continue stool softeners and laxatives as needed. KIDNEYS & ELECTROLYTES: Strict monitoring of intake, output and overall fluid balance. Avoid nephrotoxic medications to the extent possible. Medications to be dosed according to renal function. Monitor electrolytes and replace as needed ENDOCRINE: Maintain blood glucose between 100-180 at all times. Hypoglycemia protocol in place INFECTIOUS DISEASE: Trend temperature, WBC and procalcitonin level Follow cultures, deescalate antibiotics as soon as possible. Panculture if new onset fever ONCOLOGY/HEMATOLOGY/COAGULATION: Monitor for s/s of bleeding Monitor hemoglobin, coagulation studies as needed SKIN: Pressure ulcer prevention per facility protocol Specialty mattress ORTHO/REHAB: Continue PT/OT Prophylaxis: Continue GI and DVT prophylaxis Code Status: Full Resuscitation Disposition: LTAC JON BREWSTER PAC Apr 09, 2025 10:17
[2025-04-09 12:00] VITALS: BP 152/68; PULSE 69; RESP 20; TEMP 97.9
[2025-04-09 13:46] VITALS: BP 152/68
[2025-04-09] MEDS ORDERED: ASPI-1197 PO (13:47)
--- NOTE | 2025-04-09 13:48 | DS ---
[facility] DISCHARGE SUMMARY Date Patient Seen: Apr 09, 2025 Time of Visit: 13:48 Supervising Physician: Dr. Tang Primary Care Physician: Dr. Joana Díaz Outpatient Specialists: [ ] Inpatient Consults: Dr. Juan Luis Lowery (DPM), Dr Dell Turner (Cardiology, [facility]), Dr. Khoi Cespedes ([place]) HOSPITAL COURSE: HPI (per admitting provider) 64-year-old male with past medical history of DM type 2, hypertension, hyperlipidemia, chronic wound to left foot, who presented to ED via private vehicle with complaint of worsening left great toe swelling with increasing wound drainage and found to have nonhealing ulcer to great toe, possible gas gangrene, acute on chronic kidney disease, and leukocytosis. Patient was seen and examined in ED with no relatives present at bedside. Apparently patient has been having issues with blister-like formation on the left great toe, last Saturday patient hit a barrel, and afterwards developed wo rsening leg swelling and increasing drainage on that left foot. Apparently patient is getting care from a wound care nurse, was advised to come to ED for further medical evaluation. In ED CBC was done and showed WBC [place] more [place] [id number], chemistry showed c reatinine level of 2.0, sodium level of 133. X-ray of the left foot showed soft tissue swelling of the great toe and forefoot with subcutaneous gas about the great toe including around the interphalangeal joint suspicious for gas-forming soft tissue infection. Patient was subsequently started on clindamycin and was given one dose of vancomycin. We will consult Podiatry in a.m. At present patient is currently hemodynamically stable, on room air with appropriate oxygen saturation, denies any headache, chest pain, shortness of breath, abdominal pain, fever, dysuria, or flu-like symptoms. Patient denies any smoking, alcohol intake, or illicit drug use. The patient was treated for the following problems: Patient was admitted for necrotic wounds in the left great toe, podiatry was consulted and wound was debrided, MRI was performed the patient is positive for osteomyelitis. Discussion was held regarding the risks and benefits of amputation and surgery, patient declined on this admission and wishes to proceed with long-term course of outpatient IV antibiotics. Patient currently has a PICC line placed in the right arm. Scheduled for his 1st appointment with [facility] starting tomorrow. Patient advised to follow up closely with his PCP and not to miss scheduled infusion appointments. Patient expressed understanding, discharged accordingly. 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 PCP notified of patients admission, hospital course and discharge. PHYSICAL EXAM: GENERAL: alert, weak, awake oriented x 3 HEENT: Left eye blindness NECK: Supple, no JVD, trachea midline LUNGS: Clear breath sounds bilaterally. No wheezes HEART: Regular rate and rhythm. Normal S1 and S2, without murmurs ABD: Abdomen soft, nontender. Bowel sounds present EXT: No clubbing cyanosis or edema, necrotic left great toe NEURO: Alert and oriented to person, follows commands FOLLOW-UP: Follow-up with PCP in 2-3 days RECOMMENDATIONS: See Discharge Instructions This case was seen and discussed with my supervising physician. More than 30 minutes spent on discharge process, including evaluation of the patient, discussion with nursing staff, medication reconciliation and follow-up appointments JON BREWSTER PAC Apr 09, 2025 13:48
--- NOTE | 2025-04-09 14:40 | NUR ---
DISCHARGE PT A&OX4. PT AWARE OF APPOINTMENT WITH MICHELL MIRANDA 04/10/25 AT 0900. PICC LINE IN PLACE. DRESSING DRY AND INTACT. SALINE LOCKED. SWAB PACK GIVEN TO PT. PRESCRIPTIONS FOR IV ANTIBIOTICS GIVEN TO PT. PT AWARE OF APPOINTMENT WITH PCP. DR. KELLY ON 04/14/25 AT 0900. INFORMATION GIVEN. AWARE OF APPOINTMENT WITH ON 04/16/25 AT 1345. INFORMATION GIVEN. PHONE NUMBER PROVIDED FOR WOUND CARE CLINIC. PT STATES HE SEES DR. JENKINS THERE. PT STATES HE HAS AN APPOINTMENT AT THE WOUND CARE CLINIC ON 04/21/25 AT 0900. PT STATES HE HAS WOUND CARE DONE AT HOME BY NURSE AND HAS SUPPLIES. PICTURES TAKEN OF WOUND AND DRESSING CHANGED. PT DENIES PAIN AT THIS TIME. PT AWARE OF PRESCRIPTIONS OF NEW MEDICATION SENT TO PHARMACY. PT WAITING FOR RIDE HOME.
--- NOTE | 2025-04-09 21:48 | PN ---
INFECTIOUS DISEASE PROGRESS NOTE Date of Service: Apr 09, 2025 SUBJECTIVE: [ ] PHYSICAL EXAM EYES: Anicteric. Pupils equal and reactive. HENT: No oral thrush seen, moist Oral mucosa NECK: Supple, no JVD or thyromegaly. LUNGS: Good air entry. No rales, no rhonchi. CARDIOVASCULAR: S1, S2 regular. No murmur heard. ABDOMEN: Soft, non tender, bowel sounds present. CENTRAL NERVOUS SYSTEM: Awake, alert, oriented x 3. SKIN: No rashes, no swelling. LYMPHATICS: No peripheral lymphadenopathy MUSCULOSKELETAL: No joint swelling, erythema or tenderness. EXTREMITIES: No cyanosis or clubbing. Right 2nd toe amputation, right great toe partial amputation. Left 2nd toe amputation. Left great toe wound. BACK: No deformity, no pressure ulcer. GENITOURINARY: No dysuria or hematuria Vital Sign (Last 12 Hours) 04/09/25 04/09/25 12:00 13:46 Temp 97.9 Pulse 69 Resp 20 B/P (MAP) 152/68 152/68 Pulse Ox 92 O2 Delivery Nasal Cannula O2 Flow Rate 2.0 Intake & Output (last 24hrs) 04/08/25 04/08/25 04/09/25 15:00 23:00 07:00 Intake Total 400.0 ml Output Total 200 ml Balance 200.0 ml LABS: Laboratory: Test 04/09/25 11:49 04/09/25 04:11 04/08/25 20:52 04/08/25 13:29 Range/Units Whole Blood Glucose 109 70-110 MG/DL White Blood Count 8.9 4.8-10.8 K/uL Red Blood Count 4.79 4.50-6.20 MIL/uL Hemoglobin 14.3 14.0-18.0 g/dL Hematocrit 43.0 42-54 % Mean Corpuscular Volume 89.8 79-99 fL Mean Corpuscular Hemoglobin 29.9 27.0-33.0 pg Mean Corpuscular Hemoglobin Concent 33.3 32.0-36.0 g/dL Red Cell Distribution Width 13.6 11.0-15.5 % Platelet Count 267 130-400 K/uL Mean Platelet Volume 10.4 7.5-10.5 fL Nucleated Red Blood Cells 0.0 0.0-0.19 % Sodium Level 137 136-145 mmol/L Potassium Level 3.6 3.5-5.1 mmol/L Chloride Level 104 101-111 mmol/L Carbon Dioxide Level 27 21-32 mmol/L Blood Urea Nitrogen 15 7-18 mg/dL Creatinine 1.5 H 0.5-1.3 mg/dL Glomerular Filtration Rate Calc 52 >90 mL/min Random Glucose 189 #H 70-105 mg/dL Total Calcium 8.4 L 8.5-10.1 mg/dL Magnesium Level 2.30 1.80-2.40 mg/dL Total Bilirubin 0.4 0.2-1.0 mg/dL Aspartate Amino Transf (AST/SGOT) 39 H 10-37 U/L Alanine Aminotransferase (ALT/SGPT) 69 12-78 U/L Alkaline Phosphatase 97 50-136 U/L Total Protein 6.7 6.0-8.3 g/dL Albumin 2.4 L 3.5-5.0 g/dL Vancomycin Level Trough 15.6 # 10.0-20.0 UG/ML Prothrombin Time 10.2 9.6-11.6 SEC Prothromb Time International Ratio 0.96 0.85-1.15 Activated Partial Thromboplast Time 26.9 26.3-35.5 SEC ASSESSMENT: Left great toe diabetic ulcer with polymicrobial infection. Left great toe osteomyelitis. Acute renal failure, resolving. Leukocytosis POA, resolved. Diabetes mellitus. PLAN: Discontinue Zosyn. Start cefepime1 g IV every12 hours. Continue vancomycin per pharmacy protocol. Case management evaluation for referral to [facility] for outpatient IV antibiotics x [address] weeks[address] Pres[address] was [address]. Place PICC line. Thank you for allowing [facility] to participate in the care of this patient. This case was reviewed and discussed with my supervising physician Dr. Trotter and the above assessment and plan was formulated and agreed upon. ATTESTATION BY PHYSICIAN I have seen and examined the patient. I reviewed the documentation, medical decision making, and treatment plan as noted by the mid-level provider above. I agree with the findings and plan of care. DOROTEO TROTTER MD, [facility] Apr 09, 2025 21:48
== END 2025-04-09 15:30 | disposition home or self-care (01) | DRG 871 ==
LOC: EDH 14:00 → EDHIP 16:55 → 3BH 22:18
PROVIDERS: ADMIT Internal Medicine Critical Care Medicine; ATTEND Internal Medicine Critical Care Medicine
PROC: 0HBNXZZ Excision of Left Foot Skin, External Approach (ICD-10-PCS; 2025-04-04)
PROC: 02HV33Z Insertion of Infusion Device into Superior Vena Cava, Percutaneous Approach (ICD-10-PCS; principal; 2025-04-08)
DX: A41.9 Sepsis, unspecified organism (principal); A48.0 Gas gangrene; E11.52 Type 2 diabetes mellitus with diabetic peripheral angiopathy with gangrene; N17.9 Acute kidney failure, unspecified; M86.8X8 Other osteomyelitis, other site; I12.9 Hypertensive chronic kidney disease with stage 1 through stage 4 chronic kidney disease, or unspecified chronic kidney disease; N18.9 Chronic kidney disease, unspecified; E66.812 Obesity, class 2; E87.1 Hypo-osmolality and hyponatremia; L97.528 Non-pressure chronic ulcer of other part of left foot with other specified severity; E11.22 Type 2 diabetes mellitus with diabetic chronic kidney disease; E11.42 Type 2 diabetes mellitus with diabetic polyneuropathy; E11.618 Type 2 diabetes mellitus with other diabetic arthropathy; M20.5X9 Other deformities of toe(s) (acquired), unspecified foot; E11.621 Type 2 diabetes mellitus with foot ulcer; E11.628 Type 2 diabetes mellitus with other skin complications; E78.00 Pure hypercholesterolemia, unspecified; I25.10 Atherosclerotic heart disease of native coronary artery without angina pectoris; M19.079 Primary osteoarthritis, unspecified ankle and foot; E11.69 Type 2 diabetes mellitus with other specified complication; E11.65 Type 2 diabetes mellitus with hyperglycemia; H54.62 Unqualified visual loss, left eye, normal vision right eye; Z68.32 Body mass index [BMI] 32.0-32.9, adult
CPT/HCPCS: 36415; 36569; 71045; 73630; 73718; 75635; 80048; 80053; 80202; 82948; 83605; 83735; 84145; 85025; 85027; 85610; 85651; 85730; 86140; 87040; 87070; 87076; 87086; 87186; 93925; 96365; 99285; C1894; G0378; J0692; J1644; J1815; J2543; J3373; J3490; J7030; Q9967; C1751; J3375